=== PATIENT | female | born 1970 | race Caucasian/White ===

== ENCOUNTER 2019-08-25 14:44 | Emergency (ER) | payer OTHER, SELFPAY ==
--- NOTE | ~2019-08-25 | CT_ITS ---
EXAMINATION: CT abdomen pelvis w con DATE: 08/25/2019 16:34 INDICATION: Left lower quadrant pain. History of diverticulitis. TECHNIQUE: Computed tomography (CT) of the abdomen and pelvis was performed with 100 cc Omnipaque 350 intravenous contrast. The dose-length product was 204.12 mGy-cm. Automated exposure control and iter ative reconstruction technique were employed. COMPARISON: None. FINDINGS: Lung bases are unremarkable. Heart size normal. No significant pleural or pericardial effus ion. No significant vascular abnormality. No lymphadenopathy. There are multiple tiny hypodensities of the liver, likely benign cysts. The spleen, pancreas, adrena l glands and kidneys are unremarkable. Nonobstructive bowel gas pattern. Small amount of free fluid i n the pelvis, likely physiologic. There is thickening of the descending and sigmoid colon, suspicious for colitis. No free air. No acute osseous abnormality. IMPRESSION: 1. Thickening of the descending and sigmoid colon, suspicious for colitis. Reviewed, dictated and finalized at location A.
[2019-08-25 15:15] VITALS: BP 124/82; PULSE 54; RESP 16; TEMP 37.1; O2SAT 100
--- NOTE | 2019-08-25 15:26 | PC.NURSE ---
Urine sent to the lab, unable to get the bar codes to scan. Chemistry lab called and notified at this time.
[2019-08-25 15:31] LABS: Basophils Absolute Auto 0.1 K/mm3 (0.0-0.1); Basophils Percent Auto 0.7 % (0.2-1.2); Eosinophils Absolute Auto 0.1 K/mm3 (0-0.3); Hematocrit 36.7 % (37.0-47.0); Hemoglobin 12.8 g/dL (12.0-15.0); Immature Granulocyte Absolute 0.02 K/mm3 (0.00-0.031); Immature Granulocyte Percent A 0.3 % (0-0.5); Lymphocytes Absolute Auto 2.17 K/mm3 (0.9-3.2); Lymphocytes Percent Auto 30.5 % (18.3-44.2); Mean Corpuscular HGB Conc 34.9 g/dl (32-36); Mean Corpuscular Hemoglobin 31.7 pg (26-34); Mean Corpuscular Volume 90.8 fl (80-100); Mean Platelet Volume 11.3 fl (7.4-10.4); Monocytes Absolute Auto 0.8 K/mm3 (0.1-0.6); Monocytes Percent Auto 11.4 % (2.6-8.5); Neutrophils Percent Auto 56.1 % (45.5-73.1); Platelet Count Result 203 k/mm3 (150-375); Red Blood Count 4.04 M/mm3 (4.2-5.4); Red Cell Distribution Width 12.4 % (11.5-14.5); White Blood Count 7.1 K/mm3 (4.5-10.0)
[2019-08-25 15:34] LABS: Add Urine Microscopic? YES; Appearance Urine Clear (Clear); Bilirubin Urine Negative (Negative); Blood Urine Negative (Negative); Color Urine Straw (Yellow); Glucose Urine UA Negative (Negative); Ketones Urine Trace mg/dL (Negative); Leukocyte Esterase Ur 1+ LEU/UL (Negative); Nitrate Urine Negative (Negative); Protein Urine Negative (Negative); Specific Grav Ur 1.008 (1.001-1.035); Squamous Epithelial Cell Urine Rare /hpf (Few); Urobilinogen Urine Negative mg/dL (<2.0); WBC Urine 0-3 /hpf
[2019-08-25 15:42] LABS: Alanine Aminotransferase 23 U/L (4-35); Albumin Level 4.6 g/dL (3.5-5.1); Alkaline Phosphatase 86 U/L (38-126); Aspartate Amino Transferase 28 U/L (14-36); Bilirubin,Total 0.7 mg/dL (0.2-1.3); Blood Urea Nitrogen 10 mg/dL (7-17); Calcium 9.7 mg/dL (8.4-10.2); Carbon Dioxide 28 mmol/L (22-30); Chloride 97 mmol/L (98-107); Estimated CRCL calculation 72 ml/min; Estimated Glomerular Filt Rate > 60; Glucose 83 mg/dL (65-105); Lipase 142 U/L (23-300); Potassium 4.2 mmol/L (3.4-5.0); Sodium 134 mmol/L (137-145)
--- NOTE | 2019-08-25 16:13 | ED.ABDPAIN ---
HPI - Abdominal Pain General Chief Complaint: Abdominal Pain Stated Complaint: abd pain Time Seen by Provider: 08/25/19 15:59 Source: patient Mode of arrival: ambulatory Limitations: no limitations History of Present Illness HPI narrative: Patient is a 48-year-old female who presents to emergency department for evaluation of GI upset for the last several days patient presents from urgent care noting aching pain to the left side of the abdomen in the lower quadrants that has worsened over the last couple of days patient denies any fever chills nausea vomiting patient notes she has felt fatigued over the last couple of days denies sick contacts is tried [id number] medications with some improvement patient denies any diarrhea rectal bleeding or melena. Related Data Allergies Allergy/AdvReac Type Severity Reaction Status Date / Time No Known Allergies Allergy Verified 08/25/19 15:59 Review of Systems Review of Systems: All systems reviewed & are unremarkable except as noted in HPI and below PMFSH Past Medical History Medical History Diverticulitis Social History Social History (Updated 08/25/19 @ 16:15 by Jon Abrams PA-C) Smoking status: Never smoker Exam Narrative: Exam Narrative: GENERAL: Well-appearing, well-nourished, and in no acute distress. HEAD: Normocephalic, atraumatic. EYES: PERRLA and EOMI. ENT: Nares clear, no rhinorrhea or epistaxis. Mucous membranes moist. CHEST: Clear to auscultation. No respiratory distress. No wheezes rales or rhonchi HEART: Regular rate and rhythm. No murmur heard. Normal peripheral pulses. ABDOMEN: Soft, left-sided abdominal tenderness with voluntary guarding, nondistended EXTREMITIES: Normal range of motion. No edema. SKIN: Warm, dry, no rash. NEURO: No focal deficits. Alert and oriented x3. PSYCH: Normal mood and affect. Course Course Emergency Course: Patient in the room aware of case findings treatment plan and diagnosis. Patient found to have colitis no high risk changes in the blood work or imaging feeling better after hydration and medications. 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, patient provided with reasons to return patient feeling much better at this time Vital Signs Vital signs: Vital Signs Temperature 98.7 F 08/25/19 15:15 Pulse Rate 54 L 08/25/19 15:15 Respiratory Rate 16 08/25/19 15:15 Blood Pressure 124/82 08/25/19 15:15 Pulse Oximetry 100 08/25/19 15:15 Temperature 98.7 F 08/25/19 15:15 Pulse Rate 54 L 08/25/19 15:15 Respiratory Rate 16 08/25/19 15:15 Blood Pressure 124/82 08/25/19 15:15 Pulse Oximetry 100 08/25/19 15:15 MDM - Abdominal Pain MDM Narrative Medical decision making narrative: Patient is a 48-year-old female who presented with GI upset over the last several days found to have colitis afebrile nontoxic-appearing hydrated and given medications in the emergency department with improvement otherwise resting comfortably in no distress provided with reasons to return feeling fine to follow-up Lab Data Result diagrams: 08/25/19 15:21 08/25/19 15:21 Labs: Lab Results 08/25/19 08/25/19 08/25/19 Range/Units 15:20 15:21 15:21 WBC 7.1 (4.5-10.0) K/mm3 RBC 4.04 L (4.2-5.4) M/mm3 Hgb 12.8 (12.0-15.0) g/dL Hct 36.7 L (37.0-47.0) % MCV 90.8 (80-100) fl MCH 31.7 (26-34) pg MCHC 34.9 (32-36) g/dl RDW 12.4 (11.5-14.5) % Plt Count 203 (150-375) k/mm3 MPV 11.3 H (7.4-10.4) fl Immature Gran % (Auto) 0.3 (0-0.5) % Neut % (Auto) 56.1 (45.5-73.1) % Lymph % (Auto) 30.5 (18.3-44.2) % Hamilton % (Auto) 11.4 H (2.6-8.5) % Eos % (Auto) 1.0 (0-4.4) % Baso % (Auto) 0.7 (0.2-1.2) % Lymph # (Auto) 2.17 (0.9-3.2) K/mm3 Hamilton # (Auto) 0.8 H (0.1-0.6) K/mm3 Eos # (Auto) 0.1 (0-0.3) K/mm3 Baso # (Auto) 0.1 (0.0-
[2019-08-25] MEDS: SODIUM CHLORIDE 0.9% IV 1,000 ML 999 ML IV CONT (17:11)
[2019-08-25] MEDS: ONDANSETRON INJ 4 MG/2 ML VIAL IV PUSH (17:11)
== END 2019-08-25 18:39 | disposition home or self-care (01) ==
PROVIDERS: Emergency Provider Emergency Medicine; PCP Internal Medicine
DX: K52.9 Noninfective gastroenteritis and colitis, unspecified (principal)
CPT/HCPCS: 36415; 74177; 80053; 81001; 83690; 85025; 96374; 96375; 99284; J0131; J2405; J7030; Q9967

== ENCOUNTER 2020-05-08 10:58 | Outpatient (CLI) | payer OTHER, SELFPAY ==
--- NOTE | ~2020-05-08 | MMUS_ITS ---
EXAMINATION: MM diagnostic [facility] BI w celso, US breast RT limited HISTORY: Palpable lump in the upper outer quadrant of the right breast TECHNIQUE: Craniocaudal, mediolateral, and mediolateral oblique 3-D tomosynthesis images of the maria eugenia ts were performed and synthetic 2-D images were generated. CAD analysis was submitted and interpreted . High resolution limited right breast ultrasound was performed. COMPARISON: 01/18/2019 BREAST PARENCHYMAL COMPOSITION: There are scattered areas of fibroglandular density. FINDINGS: MAMMOGRAPHIC FINDINGS: There is no evidence of suspicious mass, calcification, or architectural distortion in either breast to suggest malignancy. There has been no suspicious interval change. No suspicious mammographic shant elate is identified for the reported palpable abnormality. ULTRASOUND: No suspicious cystic or solid mass is identified in the upper outer quadrant of the right breast. IMPRESSION: 1. No suspicious mammographic or sonographic correlate is identified for the reported palpable abnorm ality of concern. Further evaluation at this time should be based on clinical assessment. Continued f ollow-up physical examination is recommended. 2. Recommend routine screening mammography in one year. BI-RADS Category 2: Benign finding(s). Reviewed, dictated and finalized at location A. IMPRESSION: 1. No suspicious mammographic or sonographic correlate is identified for the re ported palpable abnormality of concern. Further evaluation at this time should be based on clinical assessment. Continued follow-up physical examination is re commended. 2. Recommend routine screening mammography in one year. BI-RADS Category 2: Benign finding(s).
== END 2020-05-08 10:59 | disposition home or self-care (01) ==
LOC: ANHIMG 11:00
PROVIDERS: PCP Internal Medicine; Visit Provider Obstetrics & Gynecology
DX: N63.11 Unspecified lump in the right breast, upper outer quadrant (principal)
CPT/HCPCS: 76642; 77062; 77066; G0279

== ENCOUNTER 2020-09-08 07:07 | Outpatient (CLI) | payer OTHER, SELFPAY ==
[2020-09-08 07:47] LABS: Alanine Aminotransferase 18 U/L (4-35); Albumin Level 4.3 g/dL (3.5-5.1); Alkaline Phosphatase 73 U/L (38-126); Anion Gap 6 mmol/L (8-16); Aspartate Amino Transferase 26 U/L (14-36); Bilirubin,Total 0.7 mg/dL (0.2-1.3); Blood Urea Nitrogen 12 mg/dL (7-17); Calcium 9.6 mg/dL (8.4-10.2); Carbon Dioxide 30 mmol/L (22-30); Chloride 103 mmol/L (98-107); Estimated Glomerular Filt Rate > 60; Glucose 85 mg/dL (65-110); Potassium 4.7 mmol/L (3.4-5.0); Sodium 139 mmol/L (137-145)
[2020-09-08 07:56] LABS: Basophils Absolute Auto 0.1 K/mm3 (0.0-0.1); Basophils Percent Auto 1.5 % (0.2-1.2); Eosinophils Absolute Auto 0.1 K/mm3 (0-0.3); Eosinophils Percent Auto 2.1 % (0-4.4); Hematocrit 37.2 % (37.0-47.0); Hemoglobin 12.9 g/dL (12.0-15.0); Lymphocytes Absolute Auto 1.73 K/mm3 (0.9-3.2); Lymphocytes Percent Auto 44.6 % (18.3-44.2); Mean Corpuscular HGB Conc 34.7 g/dl (32-36); Mean Corpuscular Hemoglobin 31.7 pg (26-34); Mean Corpuscular Volume 91.4 fl (80-100); Mean Platelet Volume 11.1 fl (7.4-10.4); Monocytes Absolute Auto 0.4 K/mm3 (0.1-0.6); Monocytes Percent Auto 10.8 % (2.6-8.5); Neutrophils Absolute Auto 1.6 K/mm3 (1.3-6.7); Platelet Count Result 210 k/mm3 (150-375); Red Blood Count 4.07 M/mm3 (4.2-5.4); Red Cell Distribution Width 12.3 % (11.5-14.5); White Blood Count 3.9 K/mm3 (4.5-10.0)
[2020-09-08 08:40] LABS: Vitamin D 25 Hydroxy 39.4 ng/mL
[2020-09-12 05:48] LABS: Progesterone 0.3 ng/mL (***)
[2020-09-13 04:42] LABS: Insulin Level Total 2.2 uIU/mL (<=19.6)
[2020-09-13 23:23] LABS: Estradiol, Ultrasensitive 166 pg/mL
== END 2020-09-08 07:08 | disposition home or self-care (01) ==
PROVIDERS: PCP Internal Medicine; Visit Provider Obstetrics & Gynecology
DX: N95.1 Menopausal and female climacteric states (principal); R42 Dizziness and giddiness
CPT/HCPCS: 36415; 80053; 82306; 82607; 82670; 82728; 83001; 83525; 84144; 84443; 85025

== ENCOUNTER 2021-05-29 16:49 | Emergency (ER) | payer OTHER, SELFPAY ==
[2021-05-29 16:53] VITALS: BP 143/86; PULSE 67; RESP 16; TEMP 36.3; O2SAT 100
[2021-05-29] MEDS: KETOROLAC 30 MG/ML VIAL (*BKC) 15 MG IM (18:13)
--- NOTE | 2021-05-29 18:13 | ED.GENADULT ---
HPI - General Adult General Chief complaint: Headache Stated complaint: head pain Time Seen by Provider: 05/29/21 17:44 History of Present Illness HPI narrative: 50-year-old female here for evaluation of right-sided neck pain for the past 3 days. Patient states the pain is intermittent in nature, and comes on with position changes, particularly when she turns her head to the left. She states the pain last seconds at a time and radiates from her right neck into her right scientologist. Reports transient relief after Aleve and Tylenol. Denies increased exertion or odd sleeping positions. She denies any visual changes, nausea, vomiting, weakness, loss of consciousness, head trauma or recent falls. She does have a history of migraine headaches. Related Data Allergies Allergy/AdvReac Type Severity Reaction Status Date / Time No Known Allergies Allergy Verified 08/25/19 15:59 Review of Systems Review of Systems: Gen.: Denies fevers or chills Eyes: Denies eye pain or visual change ENT: Denies congestion Respiratory: Denies shortness of breath or cough CV: Denies chest pain or palpitations GI: Denies abdominal pain nausea, emesis or diarrhea denies burning, urgency, frequency or hematuria Musculoskeletal: Reports right-sided neck pain. Neuro: Denies numbness, tingling, weakness or focal weakness Skin: Denies rash Except as documented, all other systems reviewed and negative All systems reviewed & are unremarkable except as noted in HPI and below PMFSH Past Medical History Medical History (Updated 05/29/21 @ 19:15 by Caryn Veronica PA-C) Diverticulitis Social History Social History (Updated 08/25/19 @ 16:15 by Jon Abrams PA-C) Smoking status: Never smoker Exam Narrative: APPEARANCE: Well appearing, no pain in distress, well-nourished. ENT: Head normocephalic and atraumatic. No sinus tenderness. EYES: PERRLA/EOMI, conjunctivae clear NOSE: No nasal drainage EARS: External ear normal in appearance THROAT: Oropharynx is clear. Mucous membranes are moist. NECK: Supple. No adenopathy, no masses. RESPIRATORY: Airway patent, respirations nonlabored. Clear to auscultation bilaterally, no rales, rhonchi, wheezing. CARDIOVASCULAR: Regular rate and rhythm without murmurs, rubs, or gallops. ABDOMINAL: Normoactive bowel sounds. Soft, nontender, nondistended. No rebound tenderness or guarding. MUSCULOSKELETAL: Pain is reproduced when palpating the right side of her neck along the trapezius muscle. She has full range of motion in her neck but does report some pain with turning her head to the left. No midline tenderness along C, T or L spine. extremities are warm and well-perfused. Moves all extremities well. No edema. NEURO: Cranial nerves II through XII intact. Normal speech. No focal neurologic deficits. Normal gait. SKIN: Skin is warm and dry. No rashes. PSYCHIATRIC: Normal affect/mood. Course Vital Signs Vital signs: Vital Signs Temperature 97.3 F L 05/29/21 16:53 Pulse Rate 67 05/29/21 16:53 Respiratory Rate 16 05/29/21 16:53 Blood Pressure 143/86 H 05/29/21 16:53 Pulse Oximetry 100 05/29/21 16:53 Temperature 98.3 F 05/29/21 19:19 Pulse Rate 74 05/29/21 19:19 Respiratory Rate 16 05/29/21 19:19 Blood Pressure 126/74 05/29/21 19:19 Pulse Oximetry 100 05/29/21 19:19 Medical Decision Making MDM Narrative Medical decision making narrative: 50-year-old female here for right-sided neck pain for 3 days. VSS, pain reproduced with palpation along trapezius muscle. Feel this is likely MSK in nature as pain is episodic, localized and asymmetric, aggravated by neck movement, and relieved by rest. Normal neuro exam, patient's pain reproduced with palpation. Discussed risk versus benefits of obtaining head CT given patient's age, patient declines imaging. Her pain is improved after Toradol and muscle relaxer. Discussed strict return precautions with patient and she voiced understa
[2021-05-29] MEDS: TIZANIDINE HCL 2 MG TABLET PO (18:17)
[2021-05-29 19:19] VITALS: BP 126/74; PULSE 74; RESP 16; TEMP 36.8; O2SAT 100
== END 2021-05-29 19:21 | disposition home or self-care (01) ==
PROVIDERS: Emergency Provider Emergency Medicine; PCP Internal Medicine
DX: S16.1XXA Strain of muscle, fascia and tendon at neck level, initial encounter (principal); X58.XXXA Exposure to other specified factors, initial encounter
CPT/HCPCS: 96372; 99283; A9270; J1885

== ENCOUNTER 2021-06-15 10:11 | Emergency (ER) | payer OTHER, SELFPAY ==
[2021-06-15 10:18] VITALS: BP 147/84; PULSE 73; RESP 16; TEMP 36.2; O2SAT 100
--- NOTE | 2021-06-15 10:19 | ED.GENADULT ---
HPI - General Adult General Chief complaint: Wound/Laceration Stated complaint: poison sandra Time Seen by Provider: 06/15/21 10:19 Source: patient Mode of arrival: ambulatory Limitations: no limitations History of Present Illness HPI narrative: 50-year-old female presented for complaint of possible allergic reaction to poison sandra last night. She cut weeds near a fence line, states he wore pants, long sleeves and gloves. Endorses her face has small bumps, throat feels itchy and swollen, ears and eyes itch and scalp itches. She has taken 2 Benadryl last night and 1 Benadryl this morning. PCP advised evaluation. States she usually gets a shot. Denies lip/tongue swelling, sob, wheezing, dizziness, n/v/d. 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 Related Data Home Medications Medication Instructions Recorded Confirmed sertraline 50 mg PO DAILY 06/15/21 06/15/21 Allergies Allergy/AdvReac Type Severity Reaction Status Date / Time No Known Allergies Allergy Verified 06/15/21 10:20 Review of Systems Review of Systems: CONSTITUTIONAL: Denies body aches, fever, chills, or sweats. EYES: Denies visual changes, redness, or discharge. ENT: Denies rhinorrhea, congestion, sore throat, or otalgia. CARDIOVASCULAR: Denies chest pain, palpitations, or edema. RESPIRATORY: Denies cough or dyspnea. GASTROINTESTINAL: Denies abdominal pain, nausea, vomiting, or diarrhea. GENITOURINARY: Denies dysuria or hematuria. SKIN: endorses rash, itching MUSCULOSKELETAL: Denies back pain, joint pain, or myalgia. NEUROLOGIC: Denies headache, numbness, tingling, or weakness. PSYCH: Denies depression or anxiety. [facility] Past Medical History Medical History (Updated 06/15/21 @ 10:32 by Liliya Manuel APRN) Diverticulitis Social History Social History Smoking status: Never smoker Comments At time of signature, I have reviewed and agree with nursing past medical, surgical, social and family history unless otherwise noted. Please see nursing chart for further information. There is no relevant family history pertinent to the presenting complaint Exam Narrative: GENERAL: Well-appearing no acute distress. HEAD: Normocephalic, atraumatic. EYES: conjunctivae clear, and EOMI. ENT: Mucous membranes moist. No lip/tongue swelling. Oropharynx without edema, erythema or lesions. Bilat TMs with normal light reflex, no redness, edema or lesions to canals. NECK: Supple. No lymphadenopathy CHEST: Clear to auscultation. No respiratory distress. Speaks full sentences HEART: Regular rate and rhythm. SKIN: Warm, dry. Skin colored maculopapular rash to chin, bilateral cheeks outside of nasolabial folds. NEURO: Alert and oriented x3. PSYCH: Normal mood and affect Course Course Emergency Course: Patient is aware of diagnosis, understands and agrees to treatment plan. Anticipatory guidance given. Patient agrees to follow-up as directed and is aware of reasons to seek care at the emergency department. Portions of this record may have been created with voice recognition software Level of Care: Express Care Visit Vital Signs Vital signs: Vital Signs Temperature 97.2 F L 06/15/21 10:18 Pulse Rate 73 06/15/21 10:18 Respiratory Rate 16 06/15/21 10:18 Blood Pressure 147/84 H 06/15/21 10:18 Pulse Oximetry 100 06/15/21 10:18 Temperature 97.2 F L 06/15/21 10:18 Pulse Rate 73 06/15/21 10:18 Respiratory Rate 16 06/15/21 10:18 Blood Pressure 147/84 H 06/15/21 10:18 Pulse Oximetry 100 06/15/21 10:18 Reviewed Medical Decision Making MDM Narrative Medical decision making narrative: IM Solu-medrol given. No soft palate or uvula edema, no tongue or lip edema or other mucosal involvement, no respiratory compromise, no stridor, no wheezing, no wheezing, no history of syncope, no hypotension, no nausea, vomiting, or diarrhea. She is advised if she d
[2021-06-15] MEDS: FAMOTIDINE 20 MG TABLET 40 MG PO (10:35)
[2021-06-15] MEDS: methylPREDNISolone SOD SUCC 125 MG VIAL IM (10:36)
== END 2021-06-15 10:47 | disposition home or self-care (01) ==
PROVIDERS: Emergency Provider Nurse Practitioner Family
DX: T78.40XA Allergy, unspecified, initial encounter (principal)
CPT/HCPCS: 96372; 99213; A9270; G0463; J2930

== ENCOUNTER 2022-01-20 13:14 | Outpatient (CLI) | payer OTHER, SELFPAY ==
--- NOTE | ~2022-01-20 | MM_ITS ---
EXAMINATION: MM screening [facility] BI w celso HISTORY: Screening mammogram TECHNIQUE: Craniocaudal and mediolateral oblique 3-D tomosynthesis images were obtained and synthetic 2-D images were generated. CAD analysis was submitted and interpreted. COMPARISON: 05/08/2020, 01/18/2019 BREAST PARENCHYMAL COMPOSITION: The breasts are heterogeneously dense, which may obscure small masses . FINDINGS: No suspicious mass, calcification, or architectural distortion are identified in either matteo ast to suggest malignancy. There has been no suspicious interval change. IMPRESSION: 1. No mammographic evidence of malignancy. 2. Recommend routine screening mammography in one year. BI-RADS Category 1: Negative Reviewed, dictated and finalized at location A. NER MACHINE
== END 2022-01-20 13:15 | disposition home or self-care (01) ==
PROVIDERS: Visit Provider Obstetrics & Gynecology
DX: Z12.31 Encounter for screening mammogram for malignant neoplasm of breast (principal)
CPT/HCPCS: 77063; 77067

== ENCOUNTER 2022-04-15 15:21 | Emergency (ER) | payer OTHER, SELFPAY ==
[2022-04-15 15:28] VITALS: BP 126/77; PULSE 66; RESP 18; TEMP 36.5; O2SAT 99
--- NOTE | 2022-04-15 15:39 | ED.EAR ---
HPI - Ear Problem General Chief complaint: Ear Stated complaint: Bilateral Ear Irritation Time Seen by Provider: 04/15/22 15:32 Source: patient Mode of arrival: ambulatory Limitations: no limitations History of Present Illness HPI Narrative: Patient presents today with a 2 week history of bilateral ear pressure with muffled hearing over the last couple of days. Denies ear pain, congestion, rhinorrhea cough. She takes Zyrtec daily, but also took 2 Benadryl today without relief. Related Data Home Medications Medication Instructions Recorded Confirmed sertraline 50 mg tablet 50 mg PO DAILY 06/15/21 04/15/22 Allergies Allergy/AdvReac Type Severity Reaction Status Date / Time No Known Allergies Allergy Verified 04/15/22 15:32 Review of Systems Review of Systems: CONSTITUTIONAL: Denies body aches, fever, chills, or sweats. EYES: Denies visual changes, redness, or discharge. ENT: Denies rhinorrhea, congestion, sore throat, or otalgia.+ ear clogging and pressure with muffled hearing CARDIOVASCULAR: Denies chest pain, palpitations, or edema. RESPIRATORY: Denies cough or dyspnea. GASTROINTESTINAL: Denies abdominal pain, nausea, vomiting, or diarrhea. GENITOURINARY: Denies dysuria or hematuria. SKIN: Denies rash, itching, or wounds. MUSCULOSKELETAL: Denies back pain, joint pain, or myalgia. NEUROLOGIC: Denies headache, numbness, tingling, or weakness. PSYCH: Denies depression or anxiety. [facility] Past Medical History Medical History (Updated 04/15/22 @ 15:43 by Cary Espino, [facility], ) Diverticulitis Social History Social History Smoking status: Never smoker Comments At time of signature, I have reviewed and agree with nursing past medical, surgical, social and family history unless otherwise noted. Please see nursing chart for further information. There is no relevant family history pertinent to the presenting complaint Exam Narrative: GENERAL: Well-appearing, well-nourished, and in no acute distress. HEAD: Normocephalic, atraumatic. EYES: EOMI. No redness or drainage. Conjunctivae normal. ENT: Mucous membranes pink and moist. Nares clear. No rhinorrhea. Bilateral middle ear effusions without evidence of bacterial infection. NECK: Normal AROM. Supple. No lymphadenopathy. CHEST: No respiratory distress. EXTREMITIES: Normal range of motion. No edema. SKIN: Warm, dry, no rash. Capillary refill normal. Normal skin turgor. NEURO: No focal deficits. Alert and oriented x3. Gait steady. PSYCH: Normal affect. No signs of depression or anxiety. Course Course Level of Care: Express Care Visit Vital Signs Vital signs: Vital Signs Temperature 97.7 F 04/15/22 15:28 Pulse Rate 66 04/15/22 15:28 Respiratory Rate 18 04/15/22 15:28 Blood Pressure 126/77 04/15/22 15:28 Pulse Oximetry 99 04/15/22 15:28 Oxygen Delivery Room Air 04/15/22 15:28 Temperature 97.7 F 04/15/22 15:28 Pulse Rate 66 04/15/22 15:28 Respiratory Rate 18 04/15/22 15:28 Blood Pressure 126/77 04/15/22 15:28 Pulse Oximetry 99 04/15/22 15:28 Oxygen Delivery Room Air 04/15/22 15:33 Reviewed. Pt has been instructed to follow up with her PCP regarding her elevated blood pressure today. Medical Decision Making MDM Narrative Medical decision making narrative: Patient has bilateral serous otitis media. States she had a syncopal episode last time she took Sudafed. Will send prescription for prednisone and instructed her to take Flonase. Anticipatory guidance given. Differential Diagnosis Differential Diagnosis: Otitis media, otitis externa, ruptured TM, serous otitis, eustachian tube dysfunction, cerumen impaction Vital Signs Vital Signs: Vital Signs Temperature 97.7 F 04/15/22 15:28 Pulse Rate 66 04/15/22 15:28 Respiratory Rate 18 04/15/22 15:28 Blood Pressure 126/77 04/15/22 15:28 Pulse Oximetry 99 04/15/22 15:28
== END 2022-04-15 15:45 | disposition home or self-care (01) ==
PROVIDERS: Emergency Provider Nurse Practitioner; PCP Hospitalist
DX: H65.03 Acute serous otitis media, bilateral (principal)
CPT/HCPCS: 99213; G0463

== ENCOUNTER 2023-01-27 09:38 | Emergency (ER) | payer OTHER, SELFPAY ==
--- NOTE | 2023-01-27 09:49 | ED.GENADULT ---
HPI - General Adult General Chief complaint: Upper Respiratory Infection Stated complaint: bilateral ear discomfort Time Seen by Provider: 01/27/23 09:49 Source: patient, RN notes reviewed and old records reviewed Mode of arrival: ambulatory Limitations: no limitations History of Present Illness HPI narrative: 52-year-old female presents to [facility] with complaints cough, congestion, sinus pain, headache, myalgia, earache that is worse in left ear this started Tuesday. Patient denies chest pain, dizziness, vomiting, shortness of breath, weakness. MD complaint: cough\congestion, earache Onset (ago): day(s) (3) Related Data Allergies Allergy/AdvReac Type Severity Reaction Status Date / Time No Known Allergies Allergy Verified 04/15/22 15:32 Review of Systems Constitutional: Constitutional: Reports as per HPI, Reports body ache(s), Reports headache(s) and Reports malaise Eyes: Eyes: Reports no additional eye complaints ENT: Reports as per HPI, Reports otalgia, Reports nasal congestion, Reports nasal discharge and Reports sinus pressure Cardiovascular: Cardiovascular: Reports no additional cardiovascular complaints Respiratory: Respiratory: Reports as per HPI, Reports chest congestion and Reports cough Neurologic: Reports system reviewed and no additional complaints, except as documented PMF Past Medical History Medical History (Updated 01/27/23 @ 10:09 by Lauren Adame APRN) Diverticulitis Social History Social History Smoking status: Never smoker Comments At the time of my signature, I reviewed and agree with the nursing past medical, surgical, social, and family history. There is no relevant family history pertinent to the patient complaint. Exam Const: General: cooperative, no acute distress, ill appearing acutely and well nourished Nutritional Appearance: well nourished Orientation/consciousness: patient oriented x3 Limitations: no limitations HENMT: Head: normal to inspection and normocephalic Ears: external ears normal, mastoids normal, Abnormal EAC present and TM abnormal bulging, wth effusion ( bilaterally) hemotympanum and erythematous Face/Nose/Sinus: Facial tenderness on exam of face and sinuses Face and sinus: normal facial exam Mouth: Yes Normal oral and palatal mucosa present and Yes moist mucous membranes Throat: tonsils normal, uvula midline, posterior oropharynx abnormal erythema and no uvular edema Eyes: General: appearance normal, both eyes and all related structures Sclera: sclerae normal Pupils: Equal, round and reactive pupils present Resp: Effort & Inspection: normal respiratory effort, able to speak in complete sentences, no audible wheezes, no cough, no respiratory distress and no retractions Auscultation: clear to auscultation bilaterally, no crackles, no rales, no rhonchi and no wheezes Cardio: Rate: regular rate Rhythm: regular rhythm Skin: General skin exam: normal color and no rashes or lesions noted Neuro: General: patient oriented x3 Cranial nerves: Yes Equal, round and reactive pupils present Psych: Appearance: grossly normal Course Course Emergency Course: Patient is aware of diagnosis, understands and agrees to treatment plan.? Anticipatory guidance given.? Patient agrees to follow-up as directed and is aware of reasons to seek care at the emergency department. Some parts of this dictation were generated by voice recognition software and may contain typographical and/or grammatical inaccuracies. Level of Care: Express Care Visit Vital Signs Vital signs: Reviewed Medical Decision Making MDM Narrative Medical decision making narrative: patient complaints cough, congestion, earache, myalgia for 3-4 days. Patient's exam noted bilateral tympanic membranes bulging and erythematous will treat for bacterial otitis media. Patient's COVID test in clinic today is negative. Will treat patient for o
[2023-01-27 09:50] VITALS: BP 131/84; PULSE 70; RESP 18; TEMP 36.8; O2SAT 99
== END 2023-01-27 10:42 | disposition home or self-care (01) ==
PROVIDERS: Emergency Provider Registered Nurse; PCP Hospitalist
DX: H66.93 Otitis media, unspecified, bilateral (principal); Z20.822 Contact with and (suspected) exposure to COVID-19
CPT/HCPCS: 87426; 99213; C9803; G0463

== ENCOUNTER 2023-06-09 15:47 | Outpatient (CLI) | payer OTHER, SELFPAY ==
--- NOTE | ~2023-06-09 | MM_ITS ---
EXAMINATION: MM screening nova BI w celso HISTORY: Screening mammogram TECHNIQUE: Craniocaudal and mediolateral oblique 3-D tomosynthesis images were obtained and synthetic 2-D images were generated. CAD analysis was submitted and interpreted. COMPARISON: 01/20/2022 bilateral screening mammogram 05/08/2020 bilateral diagnostic mammogram and Limited right breast ultrasound examination BREAST PARENCHYMAL COMPOSITION: There are scattered areas of fibroglandular density. FINDINGS: Approximately 6.5 cm probable chronic benign lipoma is noted in the outer mid to upper righ t breast. There is no evidence of suspicious mass, calcification, or architectural distortion to sugg est malignancy in either breast. There has been no suspicious interval change. IMPRESSION: 1. Probable large benign right mid to upper outer breast lipoma. No mammographic evidence of malignan cy. 2. Recommend routine screening mammography in one year. BI-RADS Category 2: Benign finding(s). Reviewed, dictated and finalized at location A. IMPRESSION: 1. Probable large benign right mid to upper outer breast lipoma. No mammographi c evidence of malignancy. 2. Recommend routine screening mammography in one year. BI-RADS Category 2: Benign finding(s).
== END 2023-06-09 15:48 | disposition home or self-care (01) ==
LOC: ANHIMG 15:51
PROVIDERS: PCP Hospitalist; Visit Provider Obstetrics & Gynecology
DX: Z12.31 Encounter for screening mammogram for malignant neoplasm of breast (principal)
CPT/HCPCS: 77063; 77067

== ENCOUNTER 2023-10-14 07:44 | Outpatient (CLI) | payer OTHER, SELFPAY ==
--- NOTE | ~2023-10-14 | XR_ITS ---
XR lumbar spine min 4V 10/14/2023 08:07 Indication: Low back pain Procedure: 5 views lumbar spine Comparison: No prior studies for comparison. Findings: Vertebral body heights are maintained. No fracture, subluxation or dislocation. No evidence for spondylolisthesis. Mild multilevel facet hypertrophy. Normal lumbar lordosis. Pedicles intact. S acral foramen are symmetric. Impression: 1: Mild lumbar spondylosis. Reviewed, dictated and finalized at location B. Impression: 1: Mild lumbar spondylosis.
== END 2023-10-14 07:45 ==
PROVIDERS: PCP Hospitalist; Visit Provider Chiropractor
DX: M54.50 Low back pain, unspecified (principal); M43.06 Spondylolysis, lumbar region
CPT/HCPCS: 72110

== ENCOUNTER 2023-12-22 17:35 | Emergency (ER) | payer OTHER, SELFPAY ==
[2023-12-22] VITALS (11 sets, daily range): BP systolic 104–132; BP diastolic 55–79; PULSE 77–91; RESP 13–18; TEMP 36.4–37.6; O2SAT 97–100
--- NOTE | ~2023-12-22 | XR_ITS ---
CHEST RADIOGRAPH CLINICAL HISTORY: syncopal episode . COMPARISON: None TECHNIQUE: Single portable view of the chest. FINDINGS Sternal wires and mediastinal clips are identified, the wires are midline and intact. The left upper lung is partially obscured due to pacemaker generator. Wires project over the right atrium and right ventricle. A ring projects over the mitral valve position. The remainder of the cardiomediastinal silhouette is otherwise unremarkable. The lungs are clear Visualized osseous structures and soft tissues are unremarkable. IMPRESSION: No focal infiltrate or effusion. Reviewed, dictated and finalized at location A. ITY PROSPECTING OBSERVER
--- NOTE | 2023-12-22 17:42 | ECG_ITS ---
Test Date: 2023-12-22 17:48:07 Measurements Intervals [place] Rate: 83 P: 83 UT: 207 QRS: 74 QRSD: 97 T: -76 QT: 479 QTc: 564 Interpretive Statements SINUS RHYTHM WITH FIRST DEGREE AV BLOCK T WAVE ABNORMALITY IN ANT/INF LEADS- CONSIDER ISCHEMIA BASELINE ARTIFACT- I, II, III, AVR, AVL, AVF, V1-V6 ABNORMAL ECG No previous ECG available for comparison Electronically Signed On 12-22-2023 18:01:27 LINUX ADMIN by Tenzin Quintana D.O.
[2023-12-22 18:01] LABS: Basophils Absolute Auto 0.1 K/mm3 (0.0-0.1); Basophils Percent Auto 1.5 % (0.2-1.2); Eosinophils Absolute Auto 0.2 K/mm3 (0-0.3); Hematocrit 21.8 % (37.0-47.0); Hemoglobin 7.1 g/dL (12.0-15.0); Immature Granulocyte Absolute 0.02 K/mm3 (0.00-0.031); Immature Granulocyte Percent A 0.3 % (0-0.5); Lymphocytes Absolute Auto 2.52 K/mm3 (0.9-3.2); Lymphocytes Percent Auto 34.3 % (18.3-44.2); Mean Corpuscular HGB Conc 32.6 g/dl (32-36); Mean Corpuscular Hemoglobin 30.3 pg (26-34); Mean Corpuscular Volume 93.2 fl (80-100); Mean Platelet Volume 9.4 fl (7.4-10.4); Monocytes Absolute Auto 0.7 K/mm3 (0.1-0.6); Monocytes Percent Auto 9.5 % (2.6-8.5); Neutrophils Absolute Auto 3.9 K/mm3 (1.3-6.7); Neutrophils Percent Auto 52.4 % (45.5-73.1); Platelet Count Result 401 k/mm3 (150-375); Red Blood Count 2.34 M/mm3 (4.2-5.4); Red Cell Distribution Width 13.6 % (11.5-14.5); White Blood Count 7.4 K/mm3 (4.5-10.0)
[2023-12-22 18:10] LABS: Alanine Aminotransferase 19 U/L (6-35); Albumin Level 3.7 g/dL (3.5-5.1); Alkaline Phosphatase 83 U/L (38-126); Anion Gap 13 mmol/L (4-12); Aspartate Amino Transferase 24 U/L (14-36); Bilirubin,Total 0.3 mg/dL (0.2-1.3); Blood Urea Nitrogen 38 mg/dL (7-17); Carbon Dioxide 19 mmol/L (22-30); Chloride 105 mmol/L (98-107); Estimated Glomerular Filt Rate > 60; Glucose 128 mg/dL (65-110); Potassium 3.5 mmol/L (3.4-5.0); Sodium 137 mmol/L (137-145)
--- NOTE | 2023-12-22 19:40 | PC.NURSE ---
This RN and MD Silva went into pt room to take a stool sample to see if there is any blood in the stool. MD Silva explained the procedure and reasoning for this exam is due to her low hemoglobin and we want to find source of bleeding. MD Silva explained there may be a potential ulcer from her past medical hx or surgery and wants to let [facility] aware of the source of bleeding since that is where she had her procedures done.
--- NOTE | 2023-12-22 19:41 | ED.SYNCOPE ---
HPI - Syncope General Chief Complaint: Syncope <José Luis Sy MD - Last Filed: 12/22/23 22:00> Stated Complaint: syncope <José Luis Sy MD - Last Filed: 12/22/23 22:00> Time Seen by Provider: 12/22/23 18:00 <José Luis Sy MD - Last Filed: 12/22/23 22:00> History of Present Illness HPI narrative: Patient is a 53-year-old female who presents ER after having a syncopal episode in her shower. Recently underwent mitral valve repair and pacemaker placement at [facility] in November. She was there for 8 days and had a blood transfusion due to anemia. She is not on any anti-platelet medication or blood thinners. Denies any dark black stools. No vomiting. Reports normal eating and drinking. <José Luis Sy MD - Last Filed: 12/22/23 22:00> Related Data Allergies/Adverse Reactions: Allergies Allergy/AdvReac Type Severity Reaction Status Date / Time No Known Allergies Allergy Verified 04/15/22 15:32 <José Luis Sy MD - Last Filed: 12/22/23 22:00> Review of Systems Review of Systems: All systems reviewed & are unremarkable except as noted in HPI and below <José Luis Sy MD - Last Filed: 12/22/23 22:00> Constitutional: Constitutional: Reports no additional constitutional complaints <José Luis Sy MD - Last Filed: 12/22/23 22:00> ENT: Reports system reviewed and no additional complaints, except as documented <José Luis Sy MD - Last Filed: 12/22/23 22:00> Cardiovascular: Cardiovascular: Reports no additional cardiovascular complaints <José Luis Sy MD - Last Filed: 12/22/23 22:00> Respiratory: Respiratory: Reports no additional respiratory complaints <José Luis Sy MD - Last Filed: 12/22/23 22:00> Gastrointestinal: Gastrointestinal: Reports no additional gastrointestinal complaints <José Luis Sy MD - Last Filed: 12/22/23 22:00> Neurologic: Reports syncope, Denies headache(s), Denies focal weakness and Denies numbness <José Luis Sy MD - Last Filed: 12/22/23 22:00> PMFSH Past Medical History Medical History: Medical History (Updated 12/22/23 @ 22:00 by José Luis Sy MD) Diverticulitis Mitral valve prolapse <José Luis Sy MD - Last Filed: 12/22/23 22:00> Surgical History Surgical History: Surgical History (Updated 12/22/23 @ 21:51 by José Luis Sy MD) History of permanent cardiac pacemaker placement Mitral valve replaced <José Luis Sy MD - Last Filed: 12/22/23 22:00> Social History Social History: Social History Smoking status: Never smoker <José Luis Sy MD - Last Filed: 12/22/23 22:00> Exam Narrative: GENERAL: Fatigue-appearing, well-nourished, and in no acute distress. HEAD: Normocephalic, atraumatic. EYES: PERRL and EOMI. ENT: Mucous membranes moist. CHEST: Clear to auscultation. No respiratory distress. HEART: Regular rate and rhythm. Normal peripheral pulses. ABDOMEN: Soft, nontender, nondistended. Hemoccult-positive stool without gross blood on digital rectal exam. EXTREMITIES: Normal range of motion. No edema. SKIN: Warm, dry, pale, no rash. NEURO: Alert and oriented x3. gets lightheaded when taken from lying to sitting. PSYCH: Normal mood and affect. <José Luis Sy MD - Last Filed: 12/22/23 22:00> Course Course Emergency Course: patient had a 2nd syncopal event after blood draw. She will be transfused 2 units. Her stool was occult positive for blood. Patient accepted to [facility] for transfer by Dr. Gutierrez at 2012. Patient has been started on b.i.d. Protonix which is the recommendation of the GI physician Dr. Mahoney. <José Luis Sy MD - Last Filed: 12/22/23 22:00> patient had a 2nd syncopal event after blood draw. She will be transfused 2 units. Her stool was occult positive for blood. Patient accepted to [facility] for transfer by Dr. Gutierrez at 2012. Patient has been started on b.i.d. Protonix which is the recommendation of the GI physician Dr. Mahoney. 22:00 - Patient endorsed to me by previous provider Dr. Sy. Patient accepted as a transfer to inpatient bed at [facility] pending bed assignment. 01:41 - Patient has a bed assignment and ambulance with ALS transportation arranged. Paperwork filled out by previous ER physician. Patient remained hemodynamically stable here in the emergency department setting and appropriate for transfer and transport. <Amor Lara MD - Last Filed: 12/23/23 01:43> Vital Signs Vital signs: Vital Signs Temperature 36.4 C 12/22/23 17:45 Pulse Rate 81 12/22/23 17:45 Respiratory Rate 17 12/22/23 17:45 Blood Pressure 123/55 L 12/22/23 17:45 Pulse Oximetry 100 12/22/23 17:45 Temperature 36.8 C 12/23/23 00:26 Pulse Rate 79 12/23/23 00:26 Respiratory Rate 13 12/23/23 00:26 Blood Pressure 130/76 12/23/23 00:26 Pulse Oximetry 97 12/23/23 00:26 <José Luis Sy MD - Last Filed: 12/22/23 22:00> Vital Signs Temperature 36.4 C 12/22/23 17:45 Pulse Rate 81 12/22/23 17:45 Respiratory Rate 17 12/22/23 17:45 Blood Pressure 123/55 L 12/22/23 17:45 Pulse Oximetry 100 12/22/23 17:45 Temperature 36.8 C 12/23/23 00:26 Pulse Rate 79 12/23/23 00:26 Respiratory Rate 13 12/23/23 00:26 Blood Pressure 130/76 12/23/23 00:26 Pulse Oximetry 97 12/23/23 00:26 <Amor Lara MD - Last Filed: 12/23/23 01:43> MDM - Syncope Lab Data Result diagrams: 12/22/23 17:56 12/22/23 17:56 <José Luis Sy MD - Last Filed: 12/22/23 22:00> Labs: Lab Results 12/22/23 12/22/23 Range/Units 17:56 18:48 WBC 7.4 (4.5-10.0) K/mm3 RBC 2.34 L (4.2-5.4) M/mm3 Hgb 7.1 L (12.0-15.0) g/dL Hct 21.8 L (37.0-47.0) % MCV 93.2 (80-100) fl MCH 30.3 (26-34) pg MCHC 32.6 (32-36) g/dl RDW 13.6 (11.5-14.5) % Plt Count 401 H D (150-375) k/mm3 MPV 9.4 (7.4-10.4) fl Immature Gran % (Auto) 0.3 (0-0.5) % Neut % (Auto) 52.4 (45.5-73.1) % Lymph % (Auto) 34.3 (18.3-44.2) % [place] % (Auto) 9.5 H (2.6-8.5) % Eos % (Auto) 2.0 (0-4.4) % Baso % (Auto) 1.5 H (0.2-1.2) % Lymph # (Auto) 2.52 (0.9-3.2) K/mm3 [place] # (Auto) 0.7 H (0.1-0.6) K/mm3 Eos # (Auto) 0.2 (0-0.3) K/mm3 Baso # (Auto) 0.1 (0.0-0.1) K/mm3 Abs Immat Gran (auto) 0.02 (0.00-0.031) K/mm3 Absolute Neuts (auto) 3.9 (1.3-6.7) K/mm3 Absolute Nucleated RBC 0.000 (0.0-0.012) K/mm3 Nucleated RBC % 0.0 (0.0-0.2) % Sodium 137 (137-145) mmol/L Potassium 3.5 (3.4-5.0) mmol/L Chloride 105 (98-107) mmol/L Carbon Dioxide 19 L (22-30) mmol/L Anion Gap 13 H (4-12) mmol/L BUN 38 H D (7-17) mg/dL Creatinine 0.60 L (0.7-1.0) mg/dL Estim Creat Clear Calc Not Reportable Estimated GFR > 60 (59 - ) Glucose 128 H (65-110) mg/dL Calcium 9.0 (8.4-10.2) mg/dL Total Bilirubin 0.3 (0.2-1.3) mg/dL AST 24 (14-36) U/L ALT 19 (6-35) U/L Alkaline Phosphatase 83 (38-126) U/L Total Protein 7.0 (6.3-8.2) g/dL Albumin 3.7 (3.5-5.1) g/dL Blood Type AB Negative Antibody Screen Negative Crossmatch See Detail <José Luis Sy MD - Last Filed: 12/22/23 22:00> Lab Results 12/22/23 12/22/23 Range/Units 17:56 18:48 WBC 7.4 (4.5-10.0) K/mm3 RBC 2.34 L (4.2-5.4) M/mm3 Hgb 7.1 L (12.0-15.0) g/dL Hct 21.8 L (37.0-47.0) % MCV 93.2 (80-100) fl MCH 30.3 (26-34) pg MCHC 32.6 (32-36) g/dl RDW 13.6 (11.5-14.5) % Plt Count 401 H D (150-375) k/mm3 MPV 9.4 (7.4-10.4) fl Immature Gran % (Auto) 0.3 (0-0.5) % Neut % (Auto) 52.4 (45.5-73.1) % Lymph % (Auto) 34.3 (18.3-44.2) % [place] % (Auto) 9.5 H (2.6-8.5) % Eos % (Auto) 2.0 (0-4.4) % Baso % (Auto) 1.5 H (0.2-1.2) % Lymph # (Auto) 2.52 (0.9-3.2) K/mm3 [place] # (Auto) 0.7 H (0.1-0.6) K/mm3 Eos # (Auto) 0.2 (0-0.3) K/mm3 Baso # (Auto) 0.1 (0.0-0.1) K/mm3 Abs Immat Gran (auto) 0.02 (0.00-0.031) K/mm3 Absolute Neuts (auto) 3.9 (1.3-6.7) K/mm3 Absolute Nucleated RBC 0.000 (0.0-0.012) K/mm3 Nucleated RBC % 0.0 (0.0-0.2) % Sodium 137 (137-145) mmol/L Potassium 3.5 (3.4-5.0) mmol/L Chloride 105 (98-107) mmol/L Carbon Dioxide 19 L (22-30) mmol/L Anion Gap 13 H (4-12) mmol/L BUN 38 H D (7-17) mg/dL Creatinine 0.60 L (0.7-1.0) mg/dL Estim Creat Clear Calc Not Reportable Estimated GFR > 60 (59 - ) Glucose 128 H (65-110) mg/dL Calcium 9.0 (8.4-10.2) mg/dL Total Bilirubin 0.3 (0.2-1.3) mg/dL AST 24 (14-36) U/L ALT 19 (6-35) U/L Alkaline Phosphatase 83 (38-126) U/L Total Protein 7.0 (6.3-8.2) g/dL Albumin 3.7 (3.5-5.1) g/dL Blood Type AB Negative Antibody Screen Negative Crossmatch See Detail <Amor Lara MD - Last Filed: 12/23/23 01:43> Imaging Data Radiologist's impression: ITS Impressions Chest X-Ray 12/22/23 18:45 IMPRESSION: No focal infiltrate or effusion. <José Luis Sy MD - Last Filed: 12/22/23 22:00> ECG Data EKG #1: ECG completion date: 12/22/23 <José Luis Sy MD - Last Filed: 12/22/23 22:00> ECG completion time: 17:48 <José Luis Sy MD - Last Filed: 12/22/23 22:00> EKG Interpretation: normal rate (83), non-specific ST changes ( deep T-wave inversion inferior leads as well as V4 and V5.), normal QRS, normal QT and other ( Paced) <José Luis Sy MD - Last Filed: 12/22/23 22:00> Discharge Plan Discharge Clinical Impression: Anemia, Syncope <José Luis Sy MD - Last Filed: 12/22/23 22:00> Patient Disposition: Acute Care Hospital <José Luis Sy MD - Last Filed: 12/22/23 22:00> Condition: Stable <José Luis Sy MD - Last Filed: 12/22/23 22:00> Prescriptions: No Action amoxicillin-pot clavulanate 875-125 mg tablet 1 tablet PO Q12H 10 Days Qty: 20 0RF <José Luis Sy MD - Last Filed: 12/22/23 22:00> Follow-up/Referrals: Garrison,Melissa Lyon MD [Primary Care Provider] - <José Luis Sy MD - Last Filed: 12/22/23 22:00> Time of Disposition: 01:42 <José Luis Sy MD - Last Filed: 12/22/23 22:00> 01:42 <Amor Lara MD - Last Filed: 12/23/23 01:43>
[2023-12-22] MEDS: TUBING, BLOOD SET 1 EACH XX ×2 (20:49→22:27)
[2023-12-22] MEDS: PANTOPRAZOLE SODIUM IV 40 MG VIAL IV PUSH (20:49)
[2023-12-22] MEDS: SODIUM CHLORIDE 0.9% IV 250 ML 30 ML IV CONT (20:49)
--- NOTE | 2023-12-22 20:50 | PC.NURSE ---
RN spoke with Caryn from [facility] transfer and she states pt has been accepted to [facility]. Caryn also states pt more than likely wont be able to get a bed till the morning due to max capacity. Pt, family, MD, and Charge Nurse notified.
[2023-12-22] MEDS: ACETAMINOPHEN 325 MG TABLET 650 MG PO (21:56)
[2023-12-22] MEDS: SODIUM CHLORIDE 0.9% IV 250 ML 30 ML (22:29)
[2023-12-23 00:26] VITALS: BP 130/76; PULSE 79; RESP 13; TEMP 36.8; O2SAT 97
[2023-12-23 01:46] VITALS: BP 126/74; PULSE 80; RESP 12; O2SAT 97
--- NOTE | 2023-12-23 02:00 | PC.NURSE ---
This RN spoke with [facility]'s banquet pilot Garo to give report. Garo from [facility] states pt has a bed but they had 7 other admissions and has no tele boxes left to monitor pt. [facility] me a call back once they figure out how many tele boxes they have left or how long it will take for them to get one available.
[2023-12-23 03:04] VITALS: BP 117/77; PULSE 84; RESP 12; O2SAT 99
--- NOTE | 2023-12-23 03:21 | PC.NURSE ---
RN spoke with Lowell from [facility] and gave report about pt.
[2023-12-23 03:31] VITALS: BP 109/69; PULSE 80; RESP 14; O2SAT 98
== END 2023-12-23 03:47 | disposition short-term general hospital (02) ==
PROVIDERS: Emergency Provider Emergency Medicine; PCP Hospitalist
DX: D64.9 Anemia, unspecified (principal); R55 Syncope and collapse; I34.1 Nonrheumatic mitral (valve) prolapse; Z95.0 Presence of cardiac pacemaker; Z95.2 Presence of prosthetic heart valve; I44.0 Atrioventricular block, first degree; R94.31 Abnormal electrocardiogram [ECG] [EKG]
CPT/HCPCS: 36415; 36430; 71045; 80053; 85025; 86850; 86900; 86901; 86920; 93005; 96361; 96374; 99285; A9270; J2470; J7050; P9016

== ENCOUNTER 2024-06-11 09:37 | Outpatient (CLI) | payer OTHER, SELFPAY ==
--- NOTE | ~2024-06-11 | MM_ITS ---
EXAMINATION: MM screening nova BI w celso HISTORY: Screening mammogram TECHNIQUE: Craniocaudal and mediolateral oblique 3-D tomosynthesis images were obtained and synthetic 2-D images were generated. CAD analysis was submitted and interpreted. COMPARISON: 06/09/2023, 01/20/2022, 05/08/2020 BREAST PARENCHYMAL COMPOSITION:Dense: The breasts are heterogeneously dense, which may obscure small masses. FINDINGS: No suspicious mass, calcification, or architectural distortion are identified in either matteo ast to suggest malignancy. There has been no suspicious interval change. IMPRESSION: No mammographic evidence of malignancy. Recommend routine screening mammography in one year. BI-RADS Category 1: Negative Reviewed, dictated and finalized at location .
--- OUTSIDE RECORDS SUMMARY | 2024-06-11 10:34 | XMS_ITS | Patient Health Record ---
Author Organization 1 OF Wilder mandujano [facility] Address [address] [place] [address] Care Team Providers Care Oyster Harvester Name Role Phone Bladimir CADET, Dr. Torres Primary Care Provider U Teto Montez Unavailable [phone] Mi Nolan Unavailable [phone] Allergies No Known Allergies Reason For Referral No Information Medications Medication SIG (Take, Route, Frequency, Duration) Notes Start Date End Date Status ZyrTEC Active Social History Tobacco Use: Social History Observation Description Date Details (start date - stop date) Never Smoker NA - NA Tobacco Control (Standard) Question Answer Notes Tobacco use: Nonsmoker Plan Of Treatment No Information Insurance Providers Payer Name Payer Address Payer Phone Subscriber Number Group Number Insured Name Patient Relationship to Insured Coverage Start Date Coverage End Date [employer] [address] [place], [place] [id number] Kizzy Navarro Self - patient is the insured Medical (General) History Medical History History ICD Code migraines, high cholesterol
--- OUTSIDE RECORDS SUMMARY | 2024-06-11 10:34 | XMS_ITS | Encounter Summary ---
Author Organization [facility] Address [facility]ly [facility] [place] [address] Care Team Providers Care Custom Shoe Designer And Maker Name Role Phone Akil Norton MD Primary Care Provider U Manuelito Gonzales MD Unavailable [phone] None, Provider Primary Care Provider Unavaila Melissa Black MD Primary Care Provider [phone] Encounter Details Date Type Department Care Team (Late st Contact Info) Description 10/19/2019 Prep for Procedure [facility] [address] [place], [place] [id number] Dipesh Chen MD [address] [place] [address] [id number] Social History Tobacco Use Types Packs/Day Years Used Date Smoking Tobacco: Former Cigarettes 0.3 2 1 989 - 1990 Smokeless Tobacco: Never Alcohol Use Standard Drinks/Week Comments Yes 0 (1 standard drink = 0.6 oz pur e alcohol) rarely Education Answer Date Recorded What is the highest level of school you have completed or the highest degree you have received? 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 No / Unsure 10/21/2019 7:21 AM CDT documented as of this encounter Plan of Treatment Not on file documented as of this encounter Results * PRE-SURGICAL/PRE-PROCEDURE CORONAVIRUS (COVID 19) (10/21/2019 7:22 AM CDT) CORONAVIRUS SARS COV 2 PCR (RESP) NOT DETECTED NOT DETECTED 10/22/2019 6:35 PM CDT [facility] Comment: A Not Detected (negative) test result for this test means that SARS- CoV-2 RNA was not present in the specimen above the limit of detection. A negative result does not rule out the possibility of COVID-19 and should not be used as the sole basis for treatment or patient management decisions. If COVID-19 is still suspected, based on exposure history together with other clinical findings, re-testing should be considered in consultation with public health authorities. Laboratory test results should always be considered in the context of clinical observations and epidemiological data in making a final diagnosis and patient management decisions. Please review the Fact Sheets and FDA authorized labeling available for health care providers and patients using the following websites: https://www.[employer].com/home/Covid-19/HCP/NAAT/fact-sheet2 https://www.[employer]/home/Covid-19/Patients/NAAT/ fact-sheet2 This test has been authorized by the FDA under an Emergency Use Authorization (EUA) for use by authorized laboratories. Due to the current public health emergency, [facility] is receiving a high volume of samples from a wide variety of swabs and media for COVID-19 testing. In order to serve patients during this public health crisis, samples from appropriate clinical sources are being tested. Negative test results derived from specimens received in non-commercially manufactured viral collection and transport media, or in media and sample collection kits not yet authorized by FDA for COVID-19 testing should be cautiously evaluated and the patient potentially subjected to extra precautions such as additional clinical monitoring, including collection of an additional specimen. Methodology: Nucleic Acid Amplification Test (NAAT) includes PCR or TMA Additional information about COVID-19 can be found at the [facility] website: www.[employer]Covid19. Test performed at [facility] [address] [facility] [place] [address] Director: TOMASA VILLA DO,MPH NASOPHARYNGEAL SWAB / Unknown 10/21/2019 7:22 AM CDT us Dipesh Chen MD MICROBIOLOGY - GENERAL ORDERABLE S Final Result [facility] [address] [place], [place] [id number] [place] [address] documented in this encounter Visit Diagnoses Diagnosis Preop testing- Primary Preoperative examination, unspecified documented in this encounter Additional Health Concerns Infection Onset Date Last Indicated Resolved Time COVID-19 Rule Out 10/21/2019 10/21/2019 10/22/2019 6:35 PM CDT documented as of this encounter Care Teams Custom Shoe Designer And Maker Relationship Specialty Start Date End Date Akil Norton MD PCP - General INTERNAL MEDICINE 03/17/16 04/07/23 None, ProviderMD PCP - General UNKNOWN PHYSICIAN SPECIALTY 04/08/23 08/14/23 Melissa Garrison MD [address] [facility] [address] [place] [address] PCP - General FAMILY PRACTICE 08/15/23 Manuelito Faust MD [address] [facility] [address] [place] [address] [place] Rn Hemo Dialysis CARDIOVASCULAR DISEASE 03/23/16 documented as of this encounter
--- OUTSIDE RECORDS SUMMARY | 2024-06-11 10:34 | XMS_ITS | Clinical Summary ---
Author Organization [facility] [place] [address] Care Team Providers Care General Utility Maintenance Repairer Name Role Phone Manuelito Faust MD Unavailable [phone] Melissa Garrison MD Primary Care Provider [phone] Allergies No known active allergies Medications Calcium 500 MG Tab Take 1 tablet by mouth daily. 7 Active bisacodyl (DULCOLAX) 5 MG Tab EC Take 2 tablets (10 mg total) by mouth nightly as needed. at bedtime. 7 Active EPINEPHrine 0.3 MG/0.3ML injection EPINEPHrine 0.3 MG/0.3ML [id number] Active Active fluticasone propionate 50 MCG/ACT nasal spray 1 spray by Each Nostril route daily. 1 8 Active Multiple Vitamin (MULTI-VITAMIN) tablet Take 1 tablet by mouth daily. 7 Active Nutritional Supplements (ESTROVEN OR) Take 1 tablet by mouth daily. Active FLUTICASONE PROPIONATE 50 MCG/ACT nasal sprayIndication s:Sinusitis SPRAY 1 SPRAY INTO EACH NOSTRIL EVERY DAY 16 mL 9 Active Additional Information Patient not taking.Reported on 10/19/2019 vitamin D3, cholecalciferol , 5000 UNITS capsule Take 1 capsule by mouth daily. Active Na sulfate-K sulfate-Mg sulfate (SUPREP BOWEL PREP KIT) 17.5-3.13-1.6 GM/177ML SolutionIndicat ions:Screening for colon cancer Take 177 mLs by mouth every 12 (twelve) hours. Take as directed in the instructions 2 Bottle 0 Active Active Problems Problem Noted Date Diagnosed Date Diverticulitis 10/15/2019 Overview (10/15/2019): Added automatically from request for surgery [id number] LUQ pain 10/15/2019 Overview (10/15/2019): Added automatically from request for surgery [id number] Lipoma of back 05/22/2018 Apnea 08/04/2017 Psoriasis 09/24/2016 Non-rheumatic mitral regurgitation 04/26/2016 Liver mass, right lobe 03/06/2015 Resolved Problems Problem Noted Date Diagnosed Date Resolved Date Vasovagal syncope 04/26/2016 05/22/2018 Dysfunction of both eustachian tubes 03/16/2016 05/22/2018 Diverticulitis 02/19/2015 05/22/2018 Immunizations Immunization Administration Dates Next Due Influenza (Generic) 11/22/2017,11/15/2016 Influenza Adult (Generic) 11/12/2019,11/15/2018 Tdap (Generic) 02/21/2016 Family History Medical History Relation Comments Cardiovascular disease Father Diabetes Father Stroke Father Heart Attack Maternal Grandfather Stroke Maternal Grandfather Heart Attack Paternal Grandfather mvp Sister Relation Status Comments Father Maternal Grandfather Paternal Grandfather Sister Social History Tobacco Use Types Packs/Day Years Used Date Smoking Tobacco: Former Cigarettes 0.3 2 1 989 - 1990 Smokeless Tobacco: Never Tobacco Cessation:Counseling Given: Not Answered Alcohol Use Standard Drinks/Week Comments Yes 2 (1 standard drink = 0.6 oz pur e alcohol) Education Answer Date Recorded What is the highest level of school you have completed or the highest degree you have received? Master's degree (e.g., MA, MS, Jian, MEd, FOOD DEHYDRATOR OPERATOR, DONNA) 05/22/2018 Comments No Sex and Gender Information Value Date Recorded Sex Assigned at Not on file Legal Sex Female 7:22 AM GREETING CARD MAKER Gender Identity Not on file Sexual Orientation Not on file Occupation Industry Job Start Date Job End Date Not on file Not on file Not on file Not on file Last Filed Vital Signs Vital Sign Reading Time Taken Comments Blood Pressure 112/66 09/11/2023 11:00 AM CDT Pulse 77 09/11/2023 10:00 AM CDT Temperature 36.2 C (97.2 F) 09/11/2023 6:18 AM CDT Respiratory Rate 20 09/11/2023 10:00 AM CDT Oxygen Saturation 95% 09/11/2023 10:00 AM CDT Inhaled Oxygen Concentration - - Weight 58.2 kg (128 lb 4.9 oz) 09/11/2023 6:18 A M CDT Height 165.1 cm (5' 5 ) 09/11/2023 6:18 AM CDT Body Mass Index 21.35 09/11/2023 6:18 AM CDT Plan of Treatment Health Maintenance Due Date Last Done Comments Annual Physical 1972 Hepatitis B Vaccines (1 of 3 - 19+ 3-dose series) 1988 Pneumococcal Vaccine: 50+ Years (1 of 2 - PCV) 1988 Mammogram Screening 05/08/2022 05/08/2020 COVID-19 Vaccine (4 - 2023-2 5 season) 2023 01/15/2021, 06/02/2020, 05/12/2020 Colorectal Cancer Screening Colonoscopy (10 Years) 10/23/2029 2019 DTaP, Tdap and Td Vaccines ( 3 - Td or Tdap) 01/03/2030 01/04/2020, 02/21/2016 Hepatitis C Completed 03/18/2015 Zoster Vaccines Completed 03/04/2020, 01/04/2020 Meningococcal B Vaccine Aged Out No l onger eligible based on patient's age to complete this topic Meningococcal Vaccine Aged Out No charles louise eligible based on patient's age to complete this topic RSV Immunizations Under 20 Months Aged Out No longer eligible b ased on patient's age to complete this topic Procedures Procedure Name Priority Date/Time Associated Diagnosis Comments MAMMOGRAM GENERIC (SCAN ORDER) 05/08/2020 HEPATITIS A,B,& C Routine 03/18/2015 3:3 1 PM GREETING CARD MAKER from Last 3 Months or Most Recently Relevant to Health Maintenance Results * MAMMOGRAM GENERIC (05/08/2020) Anatomical Region Laterality Modality Other 05/08/2020 Narrative 05/08/2020 Ordered by an unspecified provider. us Documents Scanned SCANNING Final Result * HEPATITIS A,B,& C (03/18/2015 3:31 PM GREETING CARD MAKER) HAV IGM NON-REACTIVE TESTING PERFORMED AT [address] [id number] NR [employer] TO EPIC CONVERSION HEPATITIS B SURFACE AG NON-REACTIVE TESTING PERFORMED AT [address] [id number] NR [employer] TO EPIC CONVERSION HEP B SURFACE AB NON-REACTIVE TESTING PERFORMED AT [place] [id number] [facility] TO EPIC CONVERSION HEP B CORE TOTAL AB NON-REACTIVE TESTING PERFORMED AT [address] [id number] NR [employer] TO EPIC CONVERSION HEPATITIS C AB NON-REACTIVE TESTING PERFORMED AT [place] [id number] NR [employer] TO EPIC CONVERSION 03/18/2015 3:31 PM GREETING CARD MAKER 03/18/2015 3:31 PM GREETING CARD MAKER Narrative [employer] TO EPIC CONVERSION - 03/19/2015 7:51 PM GREETING CARD MAKER Result Communication: No patient communication needed at this time us Akil Norton MD LABORATORY Final Re sult [employer] TO EPIC CONVERSION from Last 3 Months or Most Recently Relevant to Health Maintenance Insurance [employer] [facility]ESS [facility] [employer] OPEN ACCESS [facility] Care Teams General Utility Maintenance Repairer Relationship Specialty Start Date End Date Melissa Garrison MD [address] [place] [address] [address] [place] [address] PCP - General FAMILY PRACTICE 08/15/23 Manuelito Faust MD [facility] [address] [place], [place] [address] [employer] Setter Cold Rolling Machine CARDIOVASCULAR DISEASE 03/23/16
--- OUTSIDE RECORDS SUMMARY | 2024-06-11 10:35 | XMS_ITS | Encounter Summary ---
Author Organization [facility] Address [address] [place] [address] Care Team Providers Care Longwall Foreman Name Role Phone Melissa Garrison MD Primary Care Pro vider Abundio Kaur MD Unavailable [phone] Rob Bingham MD Unavailable [phone] Reason for Visit * Reason Comments Follow-up EGD F/U Encounter Details Date Type Department Care Team (Latest Contact Info) Description 06/06/2024 2:00 PM CDT Office Visit [facility] Gastroenterology at [address] [place] [id number] Elyssa Weeks, [place] [address] [address] Multiple duodenal ulcers (Primary Dx); Reactive gastropathy Social History Tobacco Use Types Packs/Day Years Used Date Smoking Tobacco: Never Smokeless Tobacco: Never Tobacco Cessation:Counseling Given: Not Answered [facility] Utilities Answer Date Recorded In the past 12 months has [employer] electric, gas, oil, or water company threatened to shut off services in your home? No 12/05/2023 Social Connection and Isolat ion Panel [NHANES] Answer Date Recorded In a typical week, how many times do you talk on the phone with family, friends, or neighbors? More than three times a week 12/05/2023 How often do you get togethe r with friends or relatives? More than three times a week 12/05/2023 How often do you attend chur ch or baptist services? Never 12/05/2023 Do you belong to any clubs o r organizations such as jainism groups, unions, fraternal or athletic groups, or school groups? No 12/05/2023 How often do you attend meet ings of the clubs or organizations you belong to? Never 12/05/2023 Are you , , di vorced, , never , or living with a partner? 12/05/2023 AUDIT-C Answer Date Recorded Q1: How often do you have a drink containing alcohol? 4 or more times a week 04/09/2024 Q2: How many drinks containi ng alcohol do you have on a typical day when you are drinking? 1 or 2 Q3: How often do you have si x or more drinks on one occasion? Never 04/09/2024 Overall Financial Resource Strain (CARDIA) Answe r Date Recorded How hard is it for you to pa y for the very basics like food, housing, medical care, and heating? Not hard at all 12/05/2023 PHQ-2 Answer Date Recorded PHQ-2 Total Score (If total score is 3 or more points, staff should administer the PHQ-9) 0 04/09/2024 Hunger Vital Sign Answer Date Recorded Within the past 12 months, y ou worried that your food would run out before you got the money to buy more. Never true 12/05/19 Within the past 12 months, t he food you bought just didn't last and you didn't have money to get more. Never true 12/05/2023 PRAPARE - Transportation Answer Date Re corded In the past 12 months, has l ack of transportation kept you from medical appointments or from getting medications? No 11/15 In the past 12 months, has l ack of transportation kept you from meetings, work, or from getting things needed for daily living? No 12/05/2023 PHQ-9 Answer Date Recorded PHQ-9 Total Score 3 04/09/2024 Housing Stability Vital Sign Answer Silvino e Recorded In the last 12 months, was t here a time when you were not able to pay the mortgage or rent on time? Patient declined 12/05/19 In the past 12 months, how m any times have you moved where you were living? 0 12/05/2023 At any time in the past 12 m [facility], were you homeless or living in a detention (including now)? No 12/05/2023 Personal Safety Answer Date Recorded Have you ever been in or are you currently in a harmful physical or emotional relationship or is someone making you feel afraid or unsafe? Denies 03/08/2024 Comments No Sex and Gender Information Value Date Recorded Sex Assigned at Not on file Legal Sex Female 8:50 AM CDT Gender Identity Not on file Sexual Orientation Not on file documented as of this encounter Last Filed Vital Signs Vital Sign Reading Time Taken Comments Blood Pressure 131/83 06/06/2024 1:23 PM CDT Pulse 72 06/06/2024 1:23 PM CDT Temperature - - Respiratory Rate - - Oxygen Saturation 100% 06/06/2024 1:23 PM CDT Inhaled Oxygen Concentration - - Weight 58.2 kg (128 lb 6.4 oz) 06/06/2024 1:23 P M CDT Height 165.1 cm (5' 5 ) 06/06/2024 1:23 PM CDT Body Mass Index 21.37 06/06/2024 1:23 PM CDT documented in this encounter Ordered Prescriptions Prescription Sig Dispense Quantity Refills Last Filled Start Date End Date pantoprazole DR (PROTONIX) 40 mg EC tabletIndications: Multiple duodenal ulcers Take 1 tablet (40 mg total) by mouth daily Please take 30 minutes before breakfast or dinner 90 tablet 3 06/06/2024 documented in this encounter Miscellaneous Notes * Assessment & Plan Note - Elyssa Weeks NP - 06/10/2024 7:11 PM CDT Associated Problem(s): Reactive gastropathy Present on EGD 12/2023 and 02/2024. Negative H pylori Has been taking pantoprazole 40 mg daily On aspirin 81 mg daily Likely from chronic ASA use, alcohol use possibly contributing See above plan * Assessment & Plan Note - Elyssa Weeks NP - 06/10/2024 7:02 PM CDT Associated Problem(s): Multiple duodenal ulcers Now resolved. Repeat EGD 03/08 showing normal duodenum without ulceration. Biopsies negative for H pylori. Initially identified on EGD 12/2023 during hospitalization for anemia with melena s/p recent MV repair and pacemaker insertion. On aspirin 81 mg daily. Previously on 324 mg daily. Likely from chronic ASA use. No abdominal pain, N/V, or signs of GI blood loss. Plan - Continue pantoprazole 40 mg daily given patient requires chronic aspirin use. Take this medication on empty stomach 30 minutes before meals - Avoid alcohol use - Monitor for symptoms of recurrent ulceration including epigastric/abdominal pain, pain that worsens with eating, nighttime pain, or signs of GI blood loss documented in this encounter Plan of Treatment Not on file documented as of this encounter Visit Diagnoses Diagnosis Multiple duodenal ulcers- Primary Reactive gastropathy documented in this encounter Discontinued Medications Medication Sig Discontinue Reason Start Date End Da te pantoprazole DR (PROTONIX) 40 mg EC tablet Take 1 tablet (40 mg total) by mouth daily Please take 30 minutes before breakfast or dinner Reorder 03/12/2024 06/06/2024 documented as of this encounter Care Teams Longwall Foreman Relationship Specialty Start Date End Date Melissa Garrison MD PCP - General Family Medicine 12/17/21 Abundio Kaur MD [address] [place] [address] Consulting Physician General Surgery 04/06/22 [place] [id number] [facility] [address] [address] Surgeon Cardiothoracic Surgery 12/09/23 documented as of this encounter
--- OUTSIDE RECORDS SUMMARY | 2024-06-11 10:35 | XMS_ITS ---
Author Organization [facility] Address [address] [facility] [address] [place] [address] Care Team Providers Care Lead Trainer Name Role Phone Bladimir CADET, Dr. Torres Primary Care Provider U torstenchristal RojasTeto Unavailable [phone] Teo Coronel Unavailable [phone] Allergies No Known Allergies REASON FOR VISIT RT 2nd toe fracture Medications Medication SIG (Take, Route, Frequency, Duration) Notes Start Date End Date Status ZyrTE Active Social History Tobacco Use: Social History Observation Description Date Details (start date - stop date) Never Smoker NA - NA Tobacco Control (Standard) Question Answer Notes Tobacco use: Nonsmoker Vital Signs Height 65 in 12/24/2022 Weight 130 lbs 12/24/2022 BMI 21.63 kg/m2 12/24/2022 Encounters Encounter Location Date Provider Diagnosis 1 OF Wilder Coronel [facility] [address] [facility] [address] [place] [address] 12/24/2022 Teo Coronel Sprain of interphalangeal joint of toe, initial encounter S93.519A and Toe joint pain, right M25.571 Assessments Encounter Date Diagnosis (ICD Code) Assessment Notes Treatment Notes Treatment Clinical Notes Section Notes 12/24/2022 Sprain of interphalangeal joint of toe, initial encounter (ICD-10 - S93.519A) Patient visit today included a review of medical history, review of systems, physical exam and discussion of exam findings, diagnostic test results, and discussion of diagnoses and treatment options. Advised no definite evidence of fracture and recommended initial treatment today consisting of a topical Voltaren pain gel. Advised if no improvement, a steroid injection into the joint is an option and last resort would be surgery. Pt decided to proceed by treating the pain with topical Voltaren which she will purchase OTC. f/u PRN if condition fails to improve 12/24/2022 Toe joint pain, right (ICD-10 - M25.571) 12/24/2022 Other Plan Of Treatment Treatment Notes Assessment Notes Sprain of interphalangeal navarro int of toe, initial encounter Patient visit today included a review of medical history, review of systems, physical exam and discussion of exam findings, diagnostic test results, and discussion of diagnoses and treatment options. Advised no definite evidence of fracture and recommended initial treatment today consisting of a topical Voltaren pain gel. Advised if no improvement, a steroid injection into the joint is an option and last resort would be surgery. Pt decided to proceed by treating the pain with topical Voltaren which she will purchase OTC. f/u PRN if condition fails to improve Next Appt Details Follow Up: Contact office if condition fails to improve , otherwise RTO PRN with any other concerns, Reason: Progress Notes * LORRAINE Kizzy LDOB: 0 (52 yo F)Acc No.[id number]:12/24/2022 Progress Notes Patient: Kizzy VAZQUEZ Provider: Wilder Coronel DPM :1970 A ge:52 Y S ex:Female Date:12/24/2022 Address:[address] [place] [address] Pcp:Dr. Melissa Garrison MD Subjective: * Chief Complaints: * R T 2nd toe fracture * HPI: Ana Bolton assisting with visit:: HPI/Rooming: Aj sotelo reason for visit:: Pain level: R ight foot: 02/23 today, 06/23 2 days ago. 52 year old female c/o RT RT toe pain. Pt reports that the RT 2nd toe has not healed and might be broken. Pt reports that the injury happened when she was trying to catch herself from a fall and bent the toes backwards. Pt reports that she injured the toe in July and has had sharp, burning pain since which is located mainly around the DIPJ o f the 2nd toe. Pt reports that the toe does not always hurt, but is made worse by running, yoga, exercise, and dress shoes/heels and is excruciating when at its worst. Pt reports that getting off the feet and taping the toes together helps relieve the pain, but has not tried any other treatments. Pt reports the toe was bruised and swollen for a long time and never completely healed. Pt reports she has not seen anyone for treatment since the injury. * Medical History: * Surgical History: N o Surgical History documented. * Hospitalization/Major Diagno stic Procedure: * Family History: diabetes, gout, psoriasis, cancer, heat issues. * Social History: T obacco Use: T obacco Control (Standard) T obacco use: N onsmoker D rugs/Alcohol: A lcohol use: Yes:, Approximate drinks per week: 3. Recreational drugs: Denies All. M iscellaneous: E xercise: Sedentary. Living with: spouse. Occupation: Works full-time. * Medications: T akinyrTE Medication List reviewed and reconciled with the [facility]Taking [facility] reviewed and reconciled with the patient * Allergies: N .K.D.A.no[Allergies Verified] Objective: * Vitals: W t:130lbs, Wt-k.97 kg, Ht: 65 in, BMI:21.63Index. * Examination: G eneral Examination: Constitutional / Appearance: N o acute distress , Well nourished, Appropriate personal hygiene. Mental status: C ooperative, Oriented to person, place and time, Mood and affect: normal, Judgement and intellect: normal with appropriate response to questions. Shoes today: s lip on sandals. L ower Extremity VASCULAR: : Pulses: D P and PT pulses, palpable, bilateral. Temperature gradient: w arm from proximal to distal, bilateral. Pedal hair: p resent, bilateral. L ower Extremity DERM: : Skin: w ell hydrated , no suspicious lesions, without interdigital maceration, bilateral. Hyperkeratotic lesions LEFT foot: n o significant hpk lesions noted. Hyperkeratotic lesions RIGHT foot: n o significant hpk lesions noted. L ower Extremity NEURO: : Neurological status: n ormal sensation to sharp/ dull with normal and symmetric muscle tone bilateral. L ower Extremity MSK: : Gait Gait unremarkable with normal posture, propulsion and balance. Right lower extremity inspection and palpation: R ight second toe exhibits mild edema without erythema or ecchymosis. There is tenderness with palpation most acute at the DIPJ. The nail appears unremarkable with no discoloration or subungual contusion noted. Remainder of right foot exhibits no acute deformities or abnormalities.. ? D iagnostic Studies: : X-rays of right lower extremity: 3 views of right foot: ,No evidence of acute fracture, dislocation, neoplasm or foreign body. Decreased joint space at the PIPJ and DIPJ but no evidence of acute fracture or dislocation. Mild soft tissue edema is noted. Remainder of right foot x-ray appears unremarkable with no acute deformities or abnormalities.. Assessment: * Assessment: 1. T oe joint pain, right - M25.571 2 . S prain of interphalangeal joint of toe, initial encounter - S93.519A (Primary) Plan: * Treatment: * Procedure Codes: 7 3630 X-RAY FOOT (3 views), Modifiers: RT * Follow Up: C ontact office if condition fails to improve , otherwise RTO PRN with any other concerns * Images: * DEPARTMENT MANAGER Sign off status: Completed true * Provider: Wilder Coronel DPM Date: 02/23/2022 Generated for Minh velázquez/Yolanda/Latoyaitting on: 0 06/11/2024 10:34 AM CDT History and Physical Notes * HPI (History of Present Illness) Category Sub-Category Detail Notes Category Not es Primary reason for visit: Pain level: Right foot: 02/23 today, 06/23 2 days ago 52 year old female c/o RT RT toe pain. Pt reports that the RT 2nd toe has not healed and might be broken. Pt reports that the injury happened when she was trying to catch herself from a fall and bent the toes backwards. Pt reports that she injured the toe in July and has had sharp, burning pain since which is located mainly around the DIPJ of the 2nd toe. Pt reports that the toe does not always hurt, but is made worse by running, yoga, exercise, and dress shoes/heels and is excruciating when at its worst. Pt reports that getting off the feet and taping the toes together helps relieve the pain, but has not tried any other treatments. Pt reports the toe was bruised and swollen for a long time and never completely healed. Pt reports she has not seen anyone for treatment since the injury. DL assisting with visit: HPI/Rooming: Paige Examination Category Sub-Category Detail Notes Category Not es General Examination Mental status: Cooperative, Oriented to person, place and time, Mood and affect: normal, Judgement and intellect: normal with appropriate response to questions Shoes today: slip on sandals Constitutional / Appearance: No acute di stress , Well nourished, Appropriate personal hygiene Lower Extremity VASCULAR: Pulses: DP and PT pulse s, palpable, bilateral Temperature gradient: warm from proximal to distal, bilateral Pedal hair: present, bilateral Lower Extremity NEURO: Neurological status: norm al sensation to sharp/ dull with normal and symmetric muscle tone bilateral Lower Extremity MSK: Right lower extremi ty inspection and palpation: Right second toe exhibits mild edema without erythema or ecchymosis. There is tenderness with palpation most acute at the DIPJ. The nail appears unremarkable with no discoloration or subungual contusion noted. Remainder of right foot exhibits no acute deformities or abnormalities. Gait Gait unremarkable wi th normal posture, propulsion and balance Diagnostic Studies: X-rays of right lowe r extremity: 3 views of right foot: , No evidence of acute fracture, dislocation, neoplasm or foreign body. Decreased joint space at the PIPJ and DIPJ but no evidence of acute fracture or dislocation. Mild soft tissue edema is noted. Remainder of right foot x-ray appears unremarkable with no acute deformities or abnormalities. Lower Extremity DERM: Skin: well hydra john , no suspicious lesions, without interdigital maceration, bilateral Hyperkeratotic lesions LEFT foot: no sig nificant hpk lesions noted Hyperkeratotic lesions RIGHT foot: no si gnificant hpk lesions noted
--- OUTSIDE RECORDS SUMMARY | 2024-06-11 10:35 | XMS_ITS | Encounter Summary ---
Author Organization [facility] Healthcare Address [address] [place] [address] Care Team Providers Care Supervisor Propellant Charge Loading Name Role Phone Melissa Garrison MD Primary Care Pro vider Abundio Kaur MD Unavailable [phone] Rob Bingham MD Unavailable [phone] Reason for Referral * Consultation (Routine) - Authorized Specialty Diagnoses / Procedures Referred By Catalina [email or web address] Referred To Contact Diagnoses Pre-diabetes Dyslipidemia Melissa Garrison MD [address] [place] [address] Phone: tel: fax: [facility] (All Locations) Referral ID Status Reason Start Date Expiration Date Visits Requested Visits Authorized [id number] Authorized Specialty Services Required 04/16/2024 05/16/2025 1 1 Question Answer What is the purpose for the referral? Dietary Consult Please select the performing region: [facility] (All Locations) [167] # of visits: 1 VITIES CONCIERGE Encounter Details Date Type Department Care Team (Late st Contact Info) Description 04/10/2024 Results Follow-Up [facility] Primary Care at [address] [address] Melissa Garrison MD [address] [place] [id number] Pre-diabetes (Primary Dx); Dyslipidemia Social History Tobacco Use Types Packs/Day Years Used Date Smoking Tobacco: Never Smokeless Tobacco: Never [facility] Utilities Answer Date Recorded In the past 12 months has th e electric, gas, oil, or water company threatened [...] often do you attend chur ch or latter day services? Never 12/05/2023 Do you belong to any clubs o r organizations such as mandaeism groups, unions, fraternal or athletic groups, or [...] money to buy more. Never true 12/05/19 24 Within the past 12 months, t he [...] or rent on time? Patient declined 12/05/19 24 In the past 12 months, how m any times have you moved where you were living? 0 12/05/2023 At any time in the past 12 m [facility], were you homeless or living in a [place] [facility] [place] facility (including now)? No 12/05/2023 Personal Safety Answer [...] on file documented as of this encounter Plan of Treatment Scheduled Referrals Name Type Priority Associated Diagnoses Order Schedule Ambulatory referral to [facility] Outpatient Referral Routine Pre-diabetes Dyslipidemia Expected: 04/30/2024 (Approximate), Expires: 04/16/2025 documented as of this encounter Visit Diagnoses Diagnosis Pre-diabetes- Primary Other abnormal glucose Dyslipidemia Other and unspecified hyperlipidemia documented in this encounter Care Teams Supervisor Propellant Charge Loading Relationship Specialty Start Date End Date Melissa Garrison MD PCP - General Family Medicine 12/17/21 Abundio Kaur MD [address] [place] [address] Consulting Physician General Surgery 04/06/22 [place] [id number] [facility] [address] [address] Surgeon Cardiothoracic Surgery 12/09/23 documented as of this encounter
--- OUTSIDE RECORDS SUMMARY | 2024-06-11 10:35 | XMS_ITS | Encounter Summary ---
Author Organization [facility] Address [facility] [place] [address] Care Team Providers Care Eyeletter Name Role Phone Akil Norton MD Primary Care Provider U Manuelito Gonzales MD Unavailable [phone] None, Provider Primary Care Provider Unavaila Melissa Black MD Primary Care Provider [phone] Encounter Details Date Type Department Care Team (Late st Contact Info) Description 04/27/2016 [facility] AT [address] [address] Evans Syed MA Social History Tobacco Use Types Packs/Day Years Used Date Smoking Tobacco: Never Cigarettes Smokeless Tobacco: Never Alcohol Use Standard Drinks/Week Comments Yes 5 (1 standard drink = 0.6 oz pur e alcohol) 2-3 drinks per week Comments Unknown Sex and Gender Information Value Date Recorded Sex Assigned at Not on file Legal Sex Female 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 [employer] Gender Identity Not on file Sexual Orientation Not on file Occupation Industry Job Start Date Job End Date Not on file Not on file Not on file Not on file documented as of this encounter Plan of Treatment Not on file documented as of this encounter Procedures Procedure Name Priority Date/Time Associated Diagnosis Comments CRP (OUTSIDE LAB) Routine 03/30/2016 CBC (OUTSIDE LAB) Routine 03/30/2016 COMPREHENSIVE METABOLIC PANEL Routine 03/30/2016 documented in this encounter Results * CRP (OUTSIDE LAB) (03/30/2016) CRP 0.48 03/30/2016 [facility] Abstract LAB-OUTSIDE/ABSTRACTED Final Result * (ABNORMAL) COMPREHENSIVE METABOLIC PANEL (03/30/2016) SODIUM S/P/B 136 POTASSIUM S/P/B 4.9 CO2 25 CHLORIDE S/P/B 105 GLUCOSE 90 CALCIUM S/P/B 9.6 BUN 14 CREATININE S/P/B 1.03(A) 0.5 - 1.0 EGFR NON-AFR. AMER. >60 <=90 ALKALINE PHOSPHATASE S/P/B 41 ALT 9 AST 12 BILIRUBIN TOTAL S/P/B 0.3 ALBUMIN S/P/B 4.3 3.5 - 5.0 TOTAL PROTEIN S/P/B 7.6 03/30/2016 [facility] Abstract LABORATORY Final Result * CBC (OUTSIDE LAB) (03/30/2016) WBC 5.4 HGB 12.6 HCT 36.3 PLT 302 03/30/2016 [facility] Abstract LAB-OUTSIDE/ABSTRACTED Final Result documented in this encounter Visit Diagnoses Not on filedocumented in this encounter Additional Health Concerns Infection Onset Date Last Indicated Resolved Time COVID-19 Rule Out 10/21/2019 10/21/2019 10/22/2019 6:35 PM CDT documented as of this encounter Care Teams Eyeletter Relationship Specialty Start Date End Date Akil Norton MD PCP - General INTERNAL MEDICINE 03/17/16 04/07/23 None, MD Rusty PCP - General UNKNOWN PHYSICIAN SPECIALTY 04/08/23 08/14/23 Melissa Garrison MD [address] [place] [id number] PCP - General FAMILY PRACTICE 08/15/23 Manuelito Faust MD [facility] [address] [address] Isaura Rivet Sorter CARDIOVASCULAR DISEASE 03/23/16 documented as of this encounter
--- OUTSIDE RECORDS SUMMARY | 2024-06-11 10:35 | XMS_ITS ---
Author Organization 1 [facility] mandujano D[facility] Address [address] [facility] [address] [place] [address] Care Team Providers Care Vice President & General Manager [employer] Name Role Phone Bladimir CADET, Dr. Torres Primary Care Provider U Teto Montez Unavailable [phone] Mi Nolan Unavailable [phone] REASON FOR VISIT f/u left toe wound Encounters Encounter Location Date Provider Diagnosis [facility] Celeste Coronel DPM [address] [place] [address] 03/27/2024 iM Nolan Plan Of Treatment No Information Progress Notes * Kizzy PETERS LDOB: 0 (53 yo F)Acc No.[id number]:03/27/2024 Progress Notes Patient: Kizzy VAZQUEZ Provider: Michelle Nolan DPM :1970 A ge:53 Y S ex:Female Date:03/27/2024 Address:[address] [facility] Pcp:Dr. Melissa Garrison MD Subjective: * Chief Complaints: * 1 . F/u left toe wound. * Medical History: Objective: * Vitals: Assessment: Plan: * Treatment: * Images: * Electronic signature of Luli Nolan DPM on 06/11/2024 at 10:35 AM CDT Sign off status: Pending * Provider: Michelle Nolan DPM Date: 0 03/27/2024 Generated for Minh velázquez/Yolanda/eTransmitting on: 0 06/11/2024 10:35 AM CDT
--- OUTSIDE RECORDS SUMMARY | 2024-06-11 10:35 | XMS_ITS | Clinical Summary ---
Author Organization [facility] Address [address] [place] [address] Phone Care Team Providers Care Quality Tech Name Role Phone Melissa Garrison MD Primary Care Pro vider Abundio Kaur MD Unavailable [phone] Rob Bingham MD Unavailable [phone] Allergies No known active allergies Medications multivitamin-C o-rqug-tfofxqb s tablet Take 1 tablet by mouth daily 09/25/19 17 Active cholecalcifero l (VITAMIN D-3) 5,000 unit capsule Take 1 capsule (5,000 Units total) by mouth daily Active iron, carbonyl 25 mg iron tablet Take by mouth daily Active magnesium gluconate 200 mg tabletIndicati ons:hypomagnes emia Take 1 tablet (200 mg total) by mouth daily Active fluticasone propionate (FLONASE) 50 mcg/actuation nasal spray Administer 1 spray into each nostril daily Active melatonin 5 mg tablet nightly as needed Active aspirin 81 mg enteric coated tablet Take 1 tablet (81 mg total) by mouth daily 30 tablet 1 12/10/19 24 Active polyethylene glycol (MIRALAX) 17 gram/dose bulk powderIndicati ons:constipati on Take 17 g by mouth daily 12/09/19 24 Active docusate sodium (STOOL SOFTENER ORAL) Take by mouth A ctive cyanocobalamin (Vitamin B-12) 1,000 mcg tabletIndicati ons:Paresthesi a TAKE 1 TABLET BY MOUTH DAILY 30 tablet 11 03/14/19 25 Active sertraline (ZOLOFT) 100 mg tabletIndicati ons:GONZALO (generalized anxiety disorder) Take 1 tablet (100 mg total) by mouth daily 90 tablet 1 04/09/[address] (PROTONIX) 40 mg EC tabletIndicati ons:Multiple duodenal ulcers Take 1 tablet (40 mg total) by mouth daily Please take 30 minutes before breakfast or dinner 90 tablet 3 06/07/[address] (PROTONIX) 40 mg EC tablet Take 1 tablet (40 mg total) by mouth daily Please take 30 minutes before breakfast or dinner 90 tablet 3 03/12/19 25 025 Discontinu ed(Reorder ) nirmatrelvir 300 mg-ritonavir 100 mg (PAXLOVID 300mg-100 mg) tablets,dose pack tablets in a dose packIndication s:COVID Take 300 mg nirmatrelvir (2 x 150 mg tablets) with 100 mg ritonavir (1 x 100 mg tablet) with all three tablets taken together by mouth twice daily for 5 days. 30 tablet 05/11/19 25 025 Active Problems Problem Noted Date Diagnosed Date Reactive gastropathy 06/10/2024 Assessment & Plan (06/10/2024 7:28 PM CDT): Present on EGD 12/2023 and 02/2024. Negative H pylori Has been taking pantoprazole 40 mg daily On aspirin 81 mg daily Likely from chronic ASA use, alcohol use possibly contributing See above plan Gastritis without bleeding 03/08/2024 Assessment & Plan (04/09/2024 9:12 AM SPUDDER): Persistent gastritis on repeat EGD, but duodenal ulcer not identified Continue 40mg protonix Continue to avoid NSAIDS Follow up with GI Multiple duodenal ulcers 01/04/2024 Assessment & Plan (06/10/2024 7:31 PM CDT): Now resolved. Repeat EGD 03/08 showing normal [...] pain, or signs of GI blood loss H/O mitral valve repair 01/02/2024 Assessment & Plan (04/09/2024 9:09 AM SPUDDER): Following with cardiology, reviewed last note Atrial tachycardia 01/02/2024 Assessment & Plan (04/09/2024 9:10 AM SPUDDER): Following with cardiology, reviewed last note, didn't add beta-tory 2/2 low blood pressure Cardiac pacemaker in situ 12/08/2023 Overview (12/12/2023): [employer] 2272 Dual Pacemaker. Hx: SSS, CHB. DOI: 12/07/2023 [facility] Assessment & Plan (04/09/2024 9:10 AM SPUDDER): Following with cardiology, reviewed last note Assessment & Plan (12/27/2023 4:46 PM SPUDDER): For complete heartblock Following with cardiology Sick sinus syndrome 12/06/2023 Severe mitral valve regurgitation 11/15/2023 Mitral valve prolapse 05/16/2023 Assessment & Plan (09/13/2023 6:15 AM CDT): Chronic, stability unknown Referral made to Cardiothoracic surgeon for further evaluation and management Murmur, heart 03/28/2023 Assessment & Plan (09/13/2023 6:15 AM CDT): Chronic, stability unknown, diagnosed with mitral valve prolapse Referral made to Cardiothoracic surgeon for further evaluation and management Assessment & Plan (04/04/2023 9:00 AM SPUDDER): Following with cardiology, reviewed note Upcoming ECHO Family history of early CAD 03/28/2023 Assessment & Plan (04/04/2023 8:59 AM SPUDDER): Following with cardiology, reviewed note Annual physical exam 12/17/2021 Assessment & Plan (04/09/2024 9:10 AM SPUDDER): Reviewed PMH & FH PHQ reviewed Reviewed medications and supplements HCM: orders placed as needed Assessment & Plan (04/04/2023 8:52 AM SPUDDER): Reviewed PMH & FH PHQ reviewed Reviewed medications and supplements HCM: orders placed as needed Assessment & Plan (12/17/2021 11:00 AM CDT): Reviewed PMH & PHQ Screening PHQ-2 Total Score (If total score is 3 or more points, staff should administer the PHQ-9): 0 PHQ-9 Total Score: 3 Reviewed medications and supplements HCM: orders placed as needed GONZALO (generalized anxiety disorder) 12/17/2021 Assessment & Plan (04/09/2024 9:10 AM SPUDDER): controlled Continue zoloft Assessment & Plan (09/13/2023 6:15 AM CDT): Chronic, uncontrolled on medication Increase dose of sertraline from 50 mg to 100 mg daily Encouraged follow-up with PCP Assessment & Plan (04/04/2023 8:57 AM SPUDDER): Uncontrolled Just restarted zoloft Assessment & Plan (12/17/2021 11:01 AM CDT): Stable Continue zoloft Resolved Problems Problem Noted Date Diagnosed Date Resolved Date Acute GI bleeding 12/23/2023 04/09/2024 Assessment & Plan (12/27/2023 4:18 PM SPUDDER): Reviewed discharge summary Continue protonix and iron supplement Encouraged to contact GI to schedule repeat EGD in 2m Acute mitral regurgitation 12/01/2023 1 03/03/2023 Mitral valve insufficiency 10/06/2023 1 03/03/2023 Assessment & Plan (12/27/2023 4:46 PM SPUDDER): S/p repair On potassium wasting diuretic therapy 09/13/2023 04/09/2024 Assessment & Plan (09/13/2023 6:14 AM CDT): Continued on furosemide, will monitor electrolytes and renal function Acute pulmonary edema 09/13/20232024 Assessment & Plan (09/13/2023 6:17 AM CDT): New diagnosis Reviewed ER notes and test results from 09/11/2023 Continued on furosemide Ordered labs Encouraged to follow-up with entry level account representative Referral made to Cardiothoracic surgeon Advised ER evaluation if new or worsening symptoms Encounters Date Type Department Care Team Description 06/06/2024 2:00 PM CDT Office Visit [facility] Gastroenterology at [address] [place] [phone] Elyssa Weeks NP Multiple duodenal ulcers (Primary Dx); Reactive gastropathy 05/29/2024 Results Follow-Up [facility] Gastroenterology at [address] [place] [phone] Carolyn Dillard MA 05/10/2024 E-Visit [facility] Primary Care at [address] [place] [phone] Melissa Garrison MD Your Medications 04/16/2024 12:15 PM SPUDDER Office Visit [facility] Medical Group Cardiology [address] [address] [place] [phone] Yenni Reyes MD H/O mitral valve repair (Primary Dx); Cardiac pacemaker in situ; Atrial tachycardia; Family history of early CAD 04/10/2024 10:00 AM SPUDDER Office Visit [facility] Surgery [address] [place] [address] [place] [phone] Meli Garrison NP S/P MVR (mitral valve repair) (Primary Dx) 04/10/2024 9:15 AM SPUDDER Lab [address] [address] Encounter for screening for other viral diseases; Annual physical exam; Family history of diabetes mellitus 04/10/2024 Results Follow-Up [facility] Primary Care at [address] [place] [phone] Melissa Garrison MD Pre-diabetes (Primary Dx); Dyslipidemia 04/09/2024 9:30 AM SPUDDER Office Visit [facility] Primary Care at [address] [phone] Melissa Garrison MD Annual physical exam (Primary Dx); Encounter for screening for other viral diseases; Family history of diabetes mellitus; Pharyngitis, unspecified etiology; GONZALO (generalized anxiety disorder); H/O mitral valve repair; Cardiac pacemaker in situ; Atrial tachycardia; Chronic gastritis without bleeding, unspecified gastritis type 04/03/2024 3:00 PM SPUDDER Ancillary Procedure [facility] Cardiology [address] [facility] [address] [place] [phone] Cardiac pacemaker in situ; H/O mitral valve repair 04/03/2024 Telephone [facility] Primary Care at [address] [phone] Melissa Garrison MD 03/30/2024 Telephone [facility] Gastroenterology at [address] [phone] Zoya Mahoney MD 03/14/2024 3:30 PM SPUDDER Ancillary Procedure [facility] Cardiology [address] [facility] [address] [place] [phone] Cardiac pacemaker in situ (Primary Dx); SSS (sick sinus syndrome) (HCC); Complete heart block (HCC) 03/14/2024 Orders Only [facility] Cardiology [address] [facility] [address] [address] Yenni Reyes MD Cardiac pacemaker in situ (Primary Dx); CHB (complete heart block) (HCC); Sick sinus syndrome (HCC) from Last 3 Months Immunizations Immunization Administration Dates Next Due Influenza, Unspecified 11/23/2023,2022,11/16/2021,11/12/2019, 9,11/15/2016 Tdap 01/04/2020,02/21/2016 ZOSTER Recombinant 03/04/2020,01/04/2020 Surgical History Surgery Date Site/Laterality Comments HYSTERECTOMY 02/14/2015 - 02/14/2016 benign mass removed OTHER SURGICAL HISTORY 10/26/2023 ROXY TUMOR REMOVAL 02/14/2022 - 02/13/2023 fatty tumor removed from back CARDIAC CATHETERIZATION 02/14/2023 - 02/14/2024 Medical History Medical History Date Comments Anxiety Sleep difficulties Diverticulosis Depression patient denies Heart murmur Motion sickness Headache Mitral valve prolapse Mitral valve insufficiency, unspecified etiology Hyperlipidemia Syncope last episode was a few years ago Diverticulitis of colon Migraines SOB (shortness of breath) Fatigue Family History Medical History Relation Name Comments Diabetes Father Heart attack Father Hyperlipidemia Father Hypertension Father Stroke Father Hypertension Mother No Known Problems Sister 1 No Known Problems Sister 2 Relation Name Status Comments Father Mother Alive Sister 1 Alive Sister 2 Alive Social History Tobacco Use Types Packs/Day Years Used Date Smoking Tobacco: Never Smokeless Tobacco: Never Tobacco Cessation:Counseling Given: Not Answered [facility] [employer] Answer Date Recorded In the past 12 months has e [employer], gas, oil, or water [employer] threatened to shut off services in your [...] often do you attend chur ch or gnosticist services? Never 12/05/2023 Do you belong to any clubs o r organizations such as holiness groups, unions, fraternal or athletic groups, or [...] any time in the past 12 m [facility], were you homeless or living in a nursing home (including now)? No 12/05/2023 Personal Safety Answer [...] on file Sexual Orientation Not on file Obstetrics History Last Filed Vital Signs Vital Sign Reading Time Taken Comments Blood Pressure 131/83 06/06/2024 1:23 PM CDT Pulse 72 06/06/2024 1:23 PM CDT Temperature 37.3 C (99.1 F) 04/09/2024 9:00 AM SPUDDER Respiratory Rate 14 04/10/2024 10:11 AM SPUDDER Oxygen Saturation 100% 06/06/2024 1:23 PM CDT Inhaled Oxygen Concentration - - Weight 58.2 kg (128 lb 6.4 oz) 06/06/2024 1:23 P M CDT Height 165.1 cm (5' 5 ) 06/06/2024 1:23 PM CDT Body Mass Index 21.37 06/06/2024 1:23 PM CDT Plan of Treatment Health Maintenance Due Date Last Done Comments Breast Cancer Screening-Mammogram 06/08/2024 06/09/2023 Depression Screening 04/09/2025 04/09/2024, 04/04/2023, 04/04/2023, Additional history exists Regular Well Visit/Exam 18-64 04/09/2025 04/09/2024, 04/04/2023, 12/17/2021 Colon Cancer Screening-Colonoscopy 10/23/2029 2019 DTaP/Tdap/Td Vaccine (3 - Td or Tdap) 01/03/2030 01/04/2020, 02/21/2016 Zoster Vaccine Completed 03/04/2020, 01/04/2020 Covid-19 Vaccine Completed 11/23/2023, , 07/10/2021, Additional history exists Influenza Vaccine Completed 11/23/2023, , 11/16/2021, Additional history exists Hepatitis B Screening Completed 04/10/2024 Hepatitis C Screening Completed 04/10/2024 Pneumococcal vaccine <65 Aged Out No longer eligible based on patient's age to complete this topic Medical Devices Implanted Type Area Geriatric Personal Care Aide Device Identifier Shelf Expiration Date Model / Serial / Lot [employer] Tendril Sts 6fr 58cm Is-1 Connector Active Fixation Bipolar Soft [id number]/58 - [id number] - [id number] Implanted:Qty: 1 on 12/07/2023 by Rob Bingham MD at [facility] Lead Right: Ventricle [employer] [id number] 09/13/2026 2088TC/5 8 / [id number] / [employer] Tendril Sts 6fr 52cm Is-1 Connector Active Fixation Bipolar Soft /52 - [id number] - [id number] Implanted:Qty: 1 on 12/07/2023 by Rob Bingham MD at [facility] Lead Right: Heart [employer] [id number] 09/13/2026 2088TC/5 2 / [id number] / Description:RA LEAD [employer] Assurity Mri 20f00cy 2 Chamber Is-1 Connector Thk6mm Pacemaker [id number] - [id number] - [id number] Implanted:Qty: 1 on 12/07/2023 by Rob Bingham MD at [facility] Pacemaker Right: Chest [employer] [id number] 04/13/2025 [id number] / [id number] / [employer] Device Closure Vascade Od5 Fr Femoral Artery [id number] - [id number] Implanted:Qty: 1 on 11/15/2023 by Yenni Reyes MD at [facility] [employer] 06/22/2025 [id number] / / [id number] [employer] Misty-Edw ards Physio Ii 32mm Abreu Sew Mitral Ring [id number] - [id number] - [id number] Implanted:Qty: 1 on 12/01/2023 by Rob Bingham MD at [facility] N/A: Heart [employer] [id number] 01/19/2028 [id number] / [id number] / Procedures Procedure Name Priority Date/Time Associated Diagnosis Comments EGFR Routine 04/10/2024 9:17 AM SPUDDER Annual physical exam DIFFERENTIAL AUTO Routine 04/10/2024 9:1 7 AM SPUDDER Annual physical exam HEMOGLOBIN A1C Routine 04/10/2024 9:17 AM SPUDDER Family history of diabetes mellitus Annual physical exam CBC WITH AUTO DIFFERENTIAL Routine 04/10/2024 9:17 AM SPUDDER Annual physical exam COMPREHENSIVE METABOLIC PANEL Routine 04/10/2024 9:17 AM SPUDDER Annual physical exam THYROID FUNCTION CASCADE Routine 04/10/2024 9:17 AM SPUDDER Annual physical exam LIPID PANEL Routine 04/10/2024 9:17 AM SPUDDER Annual physical exam HEPATITIS C ANTIBODY Routine 04/10/2024 9:17 AM SPUDDER Encounter for screening for other viral diseases HEPATITIS B SURFACE ANTIGEN Routine 04/10/2024 9:17 AM SPUDDER Encounter for screening for other viral diseases HEPATITIS B CORE ANTIBODY, TOTAL Routine 04/10/2024 9:17 AM SPUDDER Encounter for screening for other viral diseases HEPATITIS B SURFACE ANTIBODY (IMMUNE STATUS) Routine 04/10/2024 9:17 AM SPUDDER Encounter for screening for other viral diseases POCT RAPID STREP Routine 04/09/2024 9:13 AM SPUDDER Pharyngitis, unspecified etiology TRANSTHORACIC ECHO (TTE) COMPLETE W DOPPLER/CF WO CONTRAST Routine 04/03/2024 2:16 PM SPUDDER Cardiac pacemaker in situ H/O mitral valve repair DEVICE CHECK - IN OFFICE Routine 03/14/2024 2:50 PM SPUDDER SSS (sick sinus syndrome) (HCC) Complete heart block (HCC) HM MAMMOGRAPHY Routine 06/09/2023 HM COLONOSCOPY Routine 2019 from Last 3 Months or Most Recently Relevant to Health Maintenance Results * eGFR (04/10/2024 9:17 AM SPUDDER) Pathologist [facility] eGFR >90 >=60 mL/min/1. 73 m2 Comment: Interpretive Data Reference Interval Normal >/= 90 mL/min/1.73m2 Mildly decreased* 60 - 89 mL/min/1.73m2 Mildly to moderately decreased 45 - 59 mL/min/1.73m2 Moderately to severely decreased 30 - 44 mL/min/1.73m2 Severely decreased 15 - 29 mL/min/1.73m2 Kidney Failure < 15 mL/min/1.73m2 *Relative to young adult level Estimated glomerular filtration rate is determined by the 2020 CKD-EPI equation recommended by the National Kidney Foundation (A Unifying Approach to GFR Estimation: Recommendations of the NKF-ASK Task Force on Reassessing the Inclusion of Race in Diagnosing Kidney Disease, JASN 2020). The CKD-EPI equation should not be used for patients with unstable renal function and has not been validated in children and those over 70. Current interpretive data was last reviewed 2020. Blood 04/10/2024 9:17 AM SPUDDER 04/10/2024 9:34 AM SPUDDER Melissa Garrison MD LAB BLOOD ORDERAB LES Final Result [facility] [address] Department [place] [address] * (ABNORMAL) Differential, auto (04/10/2024 9:17 AM SPUDDER) Pathologist [facility] Neutrophil abs 1.4(L) 1.5 - 6.5 K/cumm Imm gran abs 0.0 0.0 - 0.1 K/cumm [facility] Lymphocyte abs 1.1 0.8 - 3.3 K/cumm [facility] Monocyte abs 0.5 0.2 - 0.8 K/cumm [facility] Eosinophil abs 0.1 0.0 - 0.5 K/cumm [facility] Basophil abs 0.1 0.0 - 0.1 K/cumm [facility] Neutrophil pct 43.9 % [facility] Comment: Interpretive Data Percent cell count reference ranges are not reported, since discordance with absolute values may lead to misinterpretation of CBC data. Current Interpretive Data was last revised on 2017. Imm gran pct 0.3 % [facility] Comment: Interpretive Data Percent cell count reference ranges are not reported, since discordance with absolute values may lead to misinterpretation of CBC data. Current Interpretive Data was last revised on 2017. Lymphocyte pct 34.3 % [facility] Comment: Interpretive Data Percent cell count reference ranges are not reported, since discordance with absolute values may lead to misinterpretation of CBC data. Current Interpretive Data was last revised on 2017. Monocyte pct 16.4 % [facility] Comment: Interpretive Data Percent cell count reference ranges are not reported, since discordance with absolute values may lead to misinterpretation of CBC data. Current Interpretive Data was last revised on 2017. Eosinophil pct 2.7 % [facility] Comment: Interpretive Data Percent cell count reference ranges are not reported, since discordance with absolute values may lead to misinterpretation of CBC data. Current Interpretive Data was last revised on 2017. Basophil pct 2.4 % [facility] Comment: Interpretive Data Percent cell count reference ranges are not reported, since discordance with absolute values may lead to misinterpretation of CBC data. Current Interpretive Data was last revised on 2017. Blood 04/10/2024 9:17 AM SPUDDER 04/10/2024 9:34 AM SPUDDER Melissa Garrison MD LAB BLOOD ORDERAB LES Final Result [facility] [address] [address] Department [place] [address] * Thyroid Function [place] (04/10/2024 9:17 AM SPUDDER) TSH 1.51 0.30 - 4.20 mcIUnit/mL Blood 04/10/2024 9:17 AM SPUDDER 04/10/2024 9:34 AM SPUDDER Melissa Garrison MD LAB BLOOD ORDERAB LES Final Result Performing Organization Address [facility] Co de Phone Number ANITA ALICIA [address] [address] Department [place] [employer] [place] [address] * (ABNORMAL) CBC with auto differential (04/10/2024 9:17 AM SPUDDER) [facility] WBC 3.3(L) 3.8 - 9.9 K/cumm Hgb 12.1 11.9 - 15.5 g/dL [facility] [place] Hct 37.2 35.6 - 45.5 % [facility] [place] Plt 231 150 - 400 K/cumm [facility] MPV 10.4 9.1 - 12.3 fL [facility] RBC 4.39 3.90 - 5.20 M/cumm [facility] MCV 84.7 81.3 - 96.4 fL [facility] MCH 27.6 27.1 - 33.3 pg [facility] MCHC 32.5 32.3 - 35.7 g/dL [facility] CH RDW CV 16.8(H) 11.1 - 14.9 % [facility] RDW SD 52.7(H) 35.7 - 48.1 fL [facility] NRBC abs 0.00 0.00 - 0.01 K/cumm [facility] Blood 04/10/2024 9:17 AM SPUDDER 04/10/2024 9:34 AM SPUDDER Melissa Garrison MD LAB BLOOD ORDERAB LES Final Result Performing Organization Address [facility] Co de Phone Number ANITA ALICIA [address] [address] Department [place] [employer] [place] [address] * Hepatitis C antibody Blood (04/10/2024 9:17 AM SPUDDER) [facility] Hep C Ab Nonreactive Nonreactive Comment: Interpretive Data Nonreactive: Antibodies to HCV not detected. Does NOT exclude the possibility of recent exposure to HCV. Equivocal: Equivocal for HCV antibodies. Supplemental molecular testing will be automatically performed to determine infection status in accordance with current CDC screening recommendations. Reactive: Positive for HCV antibodies. This may represent current or past HCV infection. Supplemental molecular testing will be automatically performed to determine current infection status in accordance with current CDC screening recommendations. Interpretive data was last revised on 2019. Blood 04/10/2024 9:17 AM SPUDDER 04/10/2024 9:34 AM SPUDDER us Melissa Garrison MD LAB MICROBIOLOGY - GENERAL ORDERABLES Final Result Performing Organization Address [facility] de Phone Number ANITA ALICIA [address] [address] Department [employer] [place] [address] * Hepatitis B core antibody, total Blood (04/10/2024 9:17 AM SPUDDER) Hep B core IgG/IgM Nonreactive Nonreactive Comment:Testing performed by : [facility], [address] [facility], [place]., [address] Blood 04/10/2024 9:17 AM SPUDDER 04/10/2024 2:17 PM SPUDDER us Melissa Garrison MD LAB MICROBIOLOGY - GENERAL ORDERABLES Final Result Performing Organization Address [facility] [place] [address] [address] Department [employer] [place] [address] * Hepatitis B surface antibody (immune status) Blood (04/10/2024 9:17 AM SPUDDER) HBsAb (immune status) Nonreactive Comment: Interpretive Data Nonreactive: This result is consistent with a lack of immunity to Hepatitis B Virus when used in the setting of routine screening. Equivocal: The immune status of the individual should be further assessed, if appropriate, after consideration of clinical status, risk factors, and additional diagnostic information. Reactive: This result is consistent with immunity to Hepatitis B Virus when used in the setting of routine screening. Current interpretive data was last revised on 19. Blood 04/10/2024 9:17 AM SPUDDER 04/10/2024 9:34 AM SPUDDER us Melissa Garrison MD LAB MICROBIOLOGY - GENERAL ORDERABLES Final Result Performing Organization Address [facility] de Phone Number ANITA ALICIA [address] [address] Department [employer] [place] [address] * Hepatitis B Surface Antigen Blood (04/10/2024 9:17 AM SPUDDER) [facility] HepBsAg Nonreactive Nonreactive Blood 04/10/2024 9:17 AM SPUDDER 04/10/2024 9:34 AM SPUDDER Melissa Garrison MD LAB MICROBIOLOGY - GENERAL ORDERABLES Final Result Performing Organization Address [facility] de Phone Number ANITA ALICIA [address] [facility] [employer] [place] [address] * (ABNORMAL) Hemoglobin A1c (04/10/2024 9:17 AM SPUDDER) [facility] Hgb A1C 6.0(H) 4.0 - 5.6 % Estimated Average Glucose 126 mg/dL [facility] AL[facility]IA Comment: The ADA recommends reporting an estimated Average Glucose (eAG) with all Hemoglobin A1c results using the equation derived from a study of 507 normal and diabetic adults. Minority populations were underrepresented and children were not included. (Diabetes Care 31:0722-4452, 2008). The eAG is not equivalent to a fasting glucose. Blood 04/10/2024 9:17 AM SPUDDER 04/10/2024 9:34 AM SPUDDER Melissa Garrison MD LAB BLOOD ORDERAB LES Final Result Performing Organization Address [facility] de Phone Number ANITA ALICIA [address] [employer] [place] [address] * (ABNORMAL) Lipid panel (04/10/2024 9:17 AM SPUDDER) [facility] Cholesterol 252(H) 30 - 199 mg/dL Comment: Interpretive Data Ages < or = 19 years Acceptable: <170 mg/dL Borderline high: 170-199 mg/dL High: >or= 200 mg/dL Ages > or = 20 years Desirable: <200 mg/dL Borderline high: 200-239 mg/dL High: >or= 240 mg/dL Literature References: 1. Expert Panel on Integrated Guidelines for Cardiovascular Health and Risk Reduction in Children and Adolescents. Pediatrics 2011;128:S213 2. NCEP Expert Panel. Circulation 2004;110:227 Current Interpretive Data was last revised on 2017. Triglycerides 65 <=149 mg/dL ANITA Comment: Interpretive Data Ages < or = 9 years Acceptable: <75 mg/dL Borderline high: 75-99 mg/dL High: >or= 100 mg/dL Ages 10 to 20 years Acceptable: <90 mg/dL Borderline high: 90-129 mg/dL High: >or= 130 mg/dL Ages > or = 20 years Desirable: <150 mg/dL Borderline high: 150-199 mg/dL High: 200-499 mg/dL Very high: >or= 499 mg/dL Literature References: 1. Expert Panel on Integrated Guidelines for Cardiovascular Health and Risk Reduction in Children and Adolescents. Pediatrics 2011;128:S213 2. NCEP Expert Panel. Circulation 2004;110:227 Current Interpretive Data was last revised on 2017. HDL 126 >=40 mg/dL ANITA Comment: Interpretive Data Ages < or = 19 years Acceptable: >45 mg/dL Borderline low: 40-45 mg/dL Low: <40 mg/dL Ages > or = 20 years Desirable: >or= 60 mg/dL Low: <40 mg/dL Literature References: 1. Expert Panel on Integrated Guidelines for Cardiovascular Health and Risk Reduction in Children and Adolescents. Pediatrics 2011;128:S213 2. NCEP Expert Panel. Circulation 2004;110:227 Current Interpretive Data was last revised on 2017. LDL, calculated 115 <=129 mg/dL ANITA Comment: Interpretive Data Ages < or = 19 years Acceptable: <110 mg/dL Borderline high: 110-129 mg/dL High: >or= 130 mg/dL Ages > or = 20 years Optimal: <100 mg/dL Near optimal: 100-129 mg/dL Borderline high: 130-159 mg/dL High: >160 mg/dL Calculated using the [place] LDL-C estimating equation. This equation was implemented on 2023. Prior to this date LDL-C was estimated using the Friedewald equation. Literature References: 1. Expert Panel on Integrated Guidelines for Cardiovascular Health and Risk Reduction in Children and Adolescents. Pediatrics 2011;128:S213 2. NCEP Expert Panel. Circulation 2004;110:227 3. Renan M et al. GARRY Cardiol. 2020 June 14;5(5):540-548. doi: 10.1001/[email or web address] Current Interpretive Data was last revised on 2023. Non-HDL Cholesterol 126 mg/dL CERNER Comment: Interpretive Data Ages < or = 19 years Acceptable: <120 mg/dL Borderline high: 120-144 mg/dL High: >145 mg/dL Ages > or = 20 years When triglycerides are >200 mg/dL, Non-HDL cholesterol is a secondary target of therapy with treatment goals that are 30 mg/dL greater than the LDL cholesterol target. Literature References: 1. Expert Panel on Integrated Guidelines for Cardiovascular Health and Risk Reduction in Children and Adolescents. Pediatrics 2011;128:S213 2. NCEP Expert Panel. Circulation 2004;110:227 Current Interpretive Data was last revised on 2017. Chol/HDL ratio 2 CERNER CH Blood 04/10/2024 9:17 AM SPUDDER 04/10/2024 9:34 AM SPUDDER us Melissa Garrison MD LAB BLOOD ORDERAB LES Final Result [facility] [address] [address] Department [place] [address] * Comprehensive metabolic panel (04/10/2024 9:17 AM SPUDDER) [facility] Signature Sodium 137 135 - 145 mmol/L Potassium, pl 4.3 3.3 - 4.9 mmol/L CERNER Chloride 99 97 - 110 mmol/L CERNER CH CO2 26 22 - 32 mmol/L CERNER CH Anion gap 12 2 - 15 mmol/L CERNER CH BUN 14 6 - 25 mg/dL CERNER CH Creatinine 0.69 0.60 - 1.10 mg/dL CERNER CH Glucose 86 70 - 199 mg/dL CERNER Comment: Interpretive Data Fasting glucose >/= 126 mg/dl is diagnostic for diabetes. Fasting is defined as no caloric intake for at least 8 hours. Fasting glucose between 100 mg/dl to 125 mg/dl is diagnostic of prediabetes. In a patient with classic symptoms of hyperglycemia or hyperglycemic crisis, a random glucose >/= 200 mg/dl is diagnostic for diabetes. In the absence of unequivocal hyperglycemia, results should be confirmed by repeat testing. The classification and Diagnosis of Diabetes Diabetes Care 2021; 46: S19-S40. Current interpretive data was last revised 2022. Calcium 9.9 8.5 - 10.3 mg/dL CERNER CH Bilirubin, total 0.3 0.1 - 1.2 mg/dL CERNER CH Protein, pl 7.7 6.5 - 8.5 g/dL CERNER CH Albumin 4.6 3.5 - 5.0 g/dL CERNER CH Alk phos 89 40 - 130 Units/L CERNER CH ALT 14 7 - 45 Units/L CERNER CH AST 22 10 - 45 Units/L CERNER CH Blood 04/10/2024 9:17 AM SPUDDER 04/10/2024 9:34 AM SPUDDER Melissa Garrison MD LAB BLOOD ORDERAB LES Final Result [facility] [address] [address] Department [place] [address] * POCT rapid strep A (04/09/2024 9:13 AM SPUDDER) Pathologist [facility] Rapid Strep A, POC Negative Negative Swab 04/09/2024 9:13 AM SPUDDER Melissa Garrison MD POINT OF CARE GILMA T ORDERABLES Final Result * TRANSTHORACIC ECHO (TTE) COMPLETE W DOPPLER/CF WO CONTRAST (04/03/2024 2:16 PM SPUDDER) Pathologist [facility] LV EF 65 % CONS SCIMAGE Anatomical Region Laterality Modality Ultrasound 04/03/2024 1:47 PM SPUDDER Narrative 04/03/2024 5:02 PM SPUDDER [facility] Cardiology [address], [place] [address] [address] [facility] [address], [place] [address] P:[phone] P:[phone] Echocardiographic Report Patient Name: KIZZY PETERS : 1970 Study Date: 04/03/2024 1:47:03 PM Gender: F Tech: Location: [facility] Provider: YENNI REYES Height(Cm): 165 BSA: 1.58 Weight(Kg): 54.4 Heart Rate: 69 BP: 128 / 95 Quality: Good Order Provider: YENNI REYES PROCEDURES: Echocardiographic Report: Transthoracic echocardiogram with complete 2D, M-Mode, and color Doppler examination. INDICATIONS: MV Annuloplasty and Z95.0 Presence of cardiac pacemaker. MEASUREMENTS: 2D/MM Value Range Doppler Value Range EF Mod BP 66 % [ 54 - 74 ] AV Mean PG 5 mmHg EF Teich MM 50 % [ 54 - 74 ] AV Peak Matt 1.44 m/s [ 1.00 - 1.70 ] Estimated EF 65 % AV Peak PG 8 mmHg LVIDd 2D 4.62 cm [ 3.80 - 5.20 ] AV VTI 28.39 cm LVIDd MM 5.08 cm [ 3.80 - 5.20 ] LVOT Peak Matt 1.17 m/s [ 0.70 - 1.10 ] LVIDs 2D 3.30 cm [ 2.20 - 3.50 ] LVOT VTI 26.61 cm LVIDs MM 3.78 cm [ 2.20 - 3.50 ] MV E Peak Matt 1.23 m/s [ 0.60 - 1.30 ] LVPWd MM 1.24 cm [ 0.60 - 0.90 ] MV A Peak Matt 1.24 m/s [ 1.00 - 1.20 ] IVSd 2D 0.74 cm [ 0.60 - 0.90 ] MV Mean PG 4 mmHg [ 0 - 5 ] IVSd MM 0.73 cm [ 0.60 - 0.90 ] MV PHT 71 msec [ 20 - 100 ] LA Dimension MM 3.25 cm [ 2.70 - 3.80 ] MVA PHT 3.11 cm2 [ 2.00 - 4.00 ] AoR Diam MM 3.65 cm [ 2.70 - 3.70 ] MV Decel Time 250 msec [ 104 - 258 ] LA Volume Index 28 cc/m2 [ 16 - 34 ] PV Peak Matt 0.81 m/s [ 0.40 - 0.80 ] TR Peak Matt 1.80 m/s [ 1.00 - 2.80 ] TR Peak PG 13 mmHg Lateral E` 0.08 m/s [ 0.10 - 0.15 ] E` 0.05 m/s E/E` 15 2D/MM Value Range Doppler Value Range - FINDINGS: Interpretation Site: Exam was interpreted at [facility]. Left Ventricle: Normal left ventricular systolic function. No focal wall motion abnormalities. Mild concentric left ventricular hypertrophy. Mild enlargement of left ventricle cavity. Impaired diastolic relaxation Grade I. Ejection fraction is measured at 66 %. Ejection Fraction is visually estimated to be 65 %. Right Ventricle: Normal right ventricular size. Normal right ventricular systolic function. Linear artifact in right ventricle suggestive of catheter(s), pacemaker lead(s), or ICD lead(s). Left Atrium: The left atrium is normal in size. Right Atrium: The right atrium is normal in size. Atrial Septum: Normal atrial septum. Mitral Valve: Mitral valve leaflets appear severely thickened especially involving the posterior leaflet. Cannot exclude vegetation. Annular region thickened with prior annuloplasty. Mild mitral valve regurgitation. There is no hemodynamically significant mitral stenosis by Doppler. Mean gradient of 4.00 mmHg. Valve area of 3.1 cm2. Echogenic structure is seen on the posterior leaflet of the mitral valve concerning for vegetation. Aortic Valve: No evidence of hemodynamically significant aortic stenosis by Doppler. Trileaflet aortic valve. Trace aortic valve regurgitation. Tricuspid Valve: Normal appearance of the tricuspid valve. Normal right ventricular systolic pressure. Estimated peak RVSP is 20 mmHg. Mild tricuspid regurgitation. Pulmonic Valve: Normal appearance of the pulmonic valve. No pulmonic stenosis. Mild pulmonic regurgitation. Pericardium: Normal pericardium with no significant pericardial effusion. Aorta: Sinus of Valsalva is mildly dilated. Sinus of Valsalva 3.9 cm. IVC: Normal size and normal respiratory collapse consistent with normal right atrial pressure (<5 mmHg). CONCLUSIONS: Normal left ventricular systolic function. No focal wall motion abnormalities. Mild concentric left ventricular hypertrophy. Mild enlargement of left ventricle cavity. Impaired diastolic relaxation Grade I. Ejection fraction is measured at 66 %. Ejection Fraction is visually estimated to be 65 %. Normal right ventricular size. Normal right ventricular systolic function. Linear artifact in right ventricle suggestive of catheter(s), pacemaker lead(s), or ICD lead(s). Mitral valve leaflets appear severely thickened especially involving the posterior leaflet. Cannot exclude vegetation. Annular region thickened with prior annuloplasty. Mild mitral valve regurgitation. There is no hemodynamically significant mitral stenosis by Doppler. Mean gradient of 4.00 mmHg. Valve area of 3.1 cm2. Echogenic structure is seen on the posterior leaflet of the mitral valve concerning for vegetation. Mild tricuspid regurgitation. Mild pulmonic regurgitation. Normal sinus rhythm. Electronically Signed By: Greyson Daniel MD 04/03/2024 5:01:58 PM SPUDDER Procedure Note Greyson Daniel MD - 04/03/2024 [facility] Medical Group Cardiology [address] [facility] [address] [id number] [address] [facility] [address] [address] P:[phone] P:[phone] Echocardiographic Report Patient Name: KIZZY PETERS : 1970 Study Date: 04/03/2024 1:47:03 PM Gender: F Tech: Location: [facility] Provider: YENNI REYES Height(Cm): 165 BSA: 1.58 Weight(Kg): 54.4 Heart Rate: 69 BP: 128 / 95 Quality: Good Order Provider: YENNI REYES PROCEDURES: Echocardiographic Report: Transthoracic echocardiogram with complete 2D, M-Mode, and color Dopplerexamination. INDICATIONS: MV Annuloplasty and Z95.0 Presence of cardiac pacemaker. MEASUREMENTS: 2D/MM Value Range Doppler ValueRange EF Mod BP 66 % [ 54 - 74 ] AV Mean PG 5mmHg EF Teich MM 50 % [ 54 - 74 ] AV Peak Matt 1.44m/s [ 1.00 - 1.70 ] Estimated EF 65 % AV Peak PG 8mmHg LVIDd 2D 4.62 cm [ 3.80 - 5.20 ] AV VTI 28.39cm LVIDd MM 5.08 cm [ 3.80 - 5.20 ] LVOT Peak Matt 1.17m/s [ 0.70 - 1.10 ] LVIDs 2D 3.30 cm [ 2.20 - 3.50 ] LVOT VTI 26.61cm LVIDs MM 3.78 cm [ 2.20 - 3.50 ] MV E Peak Matt 1.23m/s [ 0.60 - 1.30 ] LVPWd MM 1.24 cm [ 0.60 - 0.90 ] MV A Peak Matt 1.24m/s [ 1.00 - 1.20 ] IVSd 2D 0.74 cm [ 0.60 - 0.90 ] MV Mean PG 4 mmHg[ 0 - 5 ] IVSd MM 0.73 cm [ 0.60 - 0.90 ] MV PHT 71 msec[ 20 - 100 ] LA Dimension MM 3.25 cm [ 2.70 - 3.80 ] MVA PHT 3.11cm2 [ 2.00 - 4.00 ] AoR Diam MM 3.65 cm [ 2.70 - 3.70 ] MV Decel Time 250msec [ 104 - 258 ] LA Volume Index 28 cc/m2 [ 16 - 34 ] PV Peak Matt 0.81m/s [ 0.40 - 0.80 ] TR Peak Matt 1.80 m/s [ 1.00 - 2.80 ] TR Peak PG 13 mmHg Lateral E` 0.08 m/s [ 0.10 - 0.15 ] E` 0.05 m/s E/E` 15 2D/MM Value Range Doppler ValueRange - FINDINGS: Interpretation Site: Exam was interpreted at [facility]. Left Ventricle: Normal left ventricular systolic function. No focal wall motionabnormalities. Mild concentric left ventricular hypertrophy. Mild enlargement of leftventricle cavity. Impaired diastolic relaxation Grade I. Ejection fraction is measured at 66%. Ejection Fraction is visually estimated to be 65 %. Right Ventricle: Normal right ventricular size. Normal right ventricular systolic function.Linear artifact in right ventricle suggestive of catheter(s), pacemaker lead(s),or ICD lead(s). Left Atrium: The left atrium is normal in size. Right Atrium: The right atrium is normal in size. Atrial Septum: Normal atrial septum. Mitral Valve: Mitral valve leaflets appear severely thickened especially involving theposterior leaflet. Cannot exclude vegetation. Annular region thickened with priorannuloplasty. Mild mitral valve regurgitation. There is no hemodynamically significantmitral stenosis by Doppler. Mean gradient of 4.00 mmHg. Valve area of 3.1 cm2. Echogenicstructure is seen on the posterior leaflet of the mitral valve concerning forvegetation. Aortic Valve: No evidence of hemodynamically significant aortic stenosis by Doppler.Trileaflet aortic valve. Trace aortic valve regurgitation. Tricuspid Valve: Normal appearance of the tricuspid valve. Normal right ventricularsystolic pressure. Estimated peak RVSP is 20 mmHg. Mild tricuspid regurgitation. Pulmonic Valve: Normal appearance of the pulmonic valve. No pulmonic stenosis. Mildpulmonic regurgitation. Pericardium: Normal pericardium with no significant pericardial effusion. Aorta: Sinus of Valsalva is mildly dilated. Sinus of Valsalva 3.9 cm. IVC: Normal size and normal respiratory collapse consistent with normal rightatrial pressure (<5 mmHg). CONCLUSIONS: Normal left ventricular systolic function. No focal wall motionabnormalities. Mild concentric left ventricular hypertrophy. Mild enlargement of leftventricle cavity. Impaired diastolic relaxation Grade I. Ejection fraction is measured at 66%. Ejection Fraction is visually estimated to be 65 %. Normal right ventricular size. Normal right ventricular systolic function.Linear artifact in right ventricle suggestive of catheter(s), pacemaker lead(s),or ICD lead(s). Mitral valve leaflets appear severely thickened especially involving theposterior leaflet. Cannot exclude vegetation. Annular region thickened with priorannuloplasty. Mild mitral valve regurgitation. There is no hemodynamically significantmitral stenosis by Doppler. Mean gradient of 4.00 mmHg. Valve area of 3.1 cm2. Echogenicstructure is seen on the posterior leaflet of the mitral valve concerning forvegetation. Mild tricuspid regurgitation. Mild pulmonic regurgitation. Normal sinus rhythm. Electronically Signed By: Greyson Daniel MD 04/03/2024 5:01:58 PM SPUDDER Yenni Reyes MD CV ECHO PROCEDURES F inal Result * DEVICE CHECK - IN OFFICE (03/14/2024 2:50 PM SPUDDER) Anatomical Region Laterality Modality Other Narrative 03/16/2024 7:43 AM SPUDDER [employer] MRI 2272 Dual Pacemaker. Hx: SSS, CHB. DOI: 12/07/2023 [facility]. Supervising MD: Dr Looney. Left pectoral incision well approximated. No redness, drainage, or edema noted. Office DDD Pacemaker interrogation demonstrated appropriate device function. Appropriate lead measurements noted. Battery function: 3.01 V, 7.4-9.2 years remaining battery life to ELAN. Presenting rhythm- AP-VS. Underlying rhythm- SR 60 bpm. AP- 75 %, HEEL SEATER- 11%. 452 Atrial high rate episodes recorded, [facility] oversensing of the ventricle , longest duration 3 minutes noted. No Ventricular high rate episodes noted. Medications; ASA 81 mg. Atrial amplitude decreased to 1.5 V. Atrial auto sensitivity turned off and set to 0.5 mV. See scanned report. Office pacemaker f/u scheduled 04/10/2025. Pasha remote f/u 06/19/2024. Temi Ferreira, ISMAEL Yenni Reyes MD CV CARDIAC SERVICES PROCEDURES Final Result * MAMMOGRAPHY (06/09/2023) Historical Provider HEALTH MAINTENANCE Final Result * COLONOSCOPY (2019) Scribed Colonoscopy Normal Historical Provider HEALTH MAINTENANCE Final Result from Last 3 Months or Most Recently Relevant to Health Maintenance Insurance [facility] [id number] [facility] [id number] [facility] [id number] Advance Directives For more information, please contact: [phone] * Full Code (Latest Code Status on File) Date Activated Date Inactivated Comments 12/23/2023 5:06 AM 12/24/2023 6:27 PM * Full Code Date Activated Date Inactivated Comments 12/01/2023 1:47 PM 12/09/2023 7:30 PM * Full Code Date Activated Date Inactivated Comments 11/15/2023 10:17 AM 11/15/2023 4:10 PM Care Teams Quality Tech Relationship Specialty Start Date End Date Melissa Garrison MD PCP - General Family Medicine 12/17/21 Abundio Kaur MD [address] [place] [id number] Consulting Physician General Surgery 04/06/22 [place] [address] [place] [address] Surgeon Cardiothoracic Surgery 12/09/23
--- OUTSIDE RECORDS SUMMARY | 2024-06-11 10:35 | XMS_ITS | Referral Summary ---
Author Organization [facility] Address [address] [place] [address] Phone Care Team Providers Care Gypsum Calciner Name Role Phone Melissa Garrsion MD Primary Care Pro vider Abundio Kaur MD Unavailable [phone] Rob Bingham MD Unavailable [phone] Encounters Date Type Department Care Team Description 06/06/2024 2:00 PM CDT Office Visit [facility] G[facility]ology at [address] [place] [phone] Elyssa Weeks NP Multiple duodenal ulcers (Primary Dx); Reactive gastropathy 05/29/2024 Results Follow-Up [facility] at [address] [place] [phone] Carolyn Dillard MA 05/10/2024 E-Visit [facility] Primary Care at [address] [place] [phone] Melissa Garrison MD Your Medications 04/16/2024 12:15 PM QUALITY ENGINEERING MANAGER Office Visit [facility] Cardiology [address] [address] [address] [place] [address] Yenni Reyes MD H/O mitral valve repair (Primary Dx); Cardiac pacemaker in situ; Atrial tachycardia; Family history of early CAD 04/10/2024 Results Follow-Up [facility] at [address] [place] [phone] Melissa Garrison MD Pre-diabetes (Primary Dx); Dyslipidemia 04/10/2024 9:15 AM QUALITY ENGINEERING MANAGER Lab [facility] [address] [place] [address] Encounter for screening for other viral diseases; Annual physical exam; Family history of diabetes mellitus 04/10/2024 10:00 AM QUALITY ENGINEERING MANAGER Office Visit [facility] Surgery [id number] [place] [address] [address] [place] [address] Meli Garrison NP S/P MVR (mitral valve repair) (Primary Dx) 04/09/2024 9:30 AM QUALITY ENGINEERING MANAGER Office Visit [facility] at [address] [place] [phone] Melissa Garrison MD Annual physical exam (Primary Dx); Encounter for screening for other viral diseases; Family history of diabetes mellitus; Pharyngitis, unspecified etiology; GONZALO (generalized anxiety disorder); H/O mitral valve repair; Cardiac pacemaker in situ; Atrial tachycardia; Chronic gastritis without bleeding, unspecified gastritis type 04/03/2024 Telephone [facility] at [address] [place] [phone] Melissa Garrison MD 04/03/2024 3:00 PM QUALITY ENGINEERING MANAGER Ancillary Procedure [facility] [address] [place] [phone] Cardiac pacemaker in situ; H/O mitral valve repair 03/30/2024 Telephone [facility] [address] [place] [address] [address] [place] [address] Zoya Mahoney MD 03/14/2024 Orders Only [facility] [address] [facility] [address] [place] [phone] Yenni Reyes MD Cardiac pacemaker in situ (Primary Dx); CHB (complete heart block) (HCC); Sick sinus syndrome (HCC) 03/14/2024 3:30 PM QUALITY ENGINEERING MANAGER Ancillary Procedure [facility] [address] [place] [address] Cardiac pacemaker in situ (Primary Dx); SSS (sick sinus syndrome) (HCC); Complete heart block (HCC) from Last 3 Months Allergies No known active allergies Medications multivitamin-C m-twid-djvzyyz s tablet Take 1 tablet by mouth [...] tablets,dose pack tablets in a dose packIndication s:COVROMAN Take 300 mg nirmatrelvir (2 x 150 [...] 03/08/2024 Assessment & Plan (04/09/2024 9:12 AM QUALITY ENGINEERING MANAGER): Persistent gastritis on repeat EGD, but duodenal [...] 01/02/2024 Assessment & Plan (04/09/2024 9:09 AM QUALITY ENGINEERING MANAGER): Following with cardiology, reviewed last note Atrial tachycardia 01/02/2024 Assessment & Plan (04/09/2024 9:10 AM QUALITY ENGINEERING MANAGER): Following with cardiology, reviewed last note, didn't add beta-tory 2/2 low blood pressure Cardiac pacemaker in situ 12/08/2023 Overview (12/12/2023): [employer] MRI 2272 Dual Pacemaker. Hx: SSS, CHB. DOI: 12/07/2023 Munfakh. Ortiz. [facility]. Assessment & Plan (04/09/2024 9:10 AM QUALITY ENGINEERING MANAGER): Following with cardiology, reviewed last note Assessment & Plan (12/27/2023 4:46 PM QUALITY ENGINEERING MANAGER): For complete heartblock Following with cardiology Sick [...] management Assessment & Plan (04/04/2023 9:00 AM QUALITY ENGINEERING MANAGER): Following with cardiology, reviewed note Upcoming ECHO Family history of early CAD 03/28/2023 Assessment & Plan (04/04/2023 8:59 AM QUALITY ENGINEERING MANAGER): Following with cardiology, reviewed note Annual physical exam 12/17/2021 Assessment & Plan (04/09/2024 9:10 AM QUALITY ENGINEERING MANAGER): Reviewed PMH & FH PHQ reviewed Reviewed medications and supplements HCM: orders placed as needed Assessment & Plan (04/04/2023 8:52 AM QUALITY ENGINEERING MANAGER): Reviewed PMH & FH PHQ reviewed Reviewed [...] 12/17/2021 Assessment & Plan (04/09/2024 9:10 AM QUALITY ENGINEERING MANAGER): controlled Continue zoloft Assessment & Plan (09/13/2023 6:15 AM CDT): Chronic, uncontrolled on medication Increase dose of sertraline from 50 mg to 100 mg daily Encouraged follow-up with PCP Assessment & Plan (04/04/2023 8:57 AM QUALITY ENGINEERING MANAGER): Uncontrolled Just restarted zoloft Assessment & Plan (12/17/2021 11:01 AM CDT): Stable Continue zoloft Resolved Problems Problem Noted Date Diagnosed Date Resolved Date Acute GI bleeding 12/23/2023 04/09/2024 Assessment & Plan (12/27/2023 4:18 PM QUALITY ENGINEERING MANAGER): Reviewed discharge summary Continue protonix and iron supplement Encouraged to contact GI to schedule repeat EGD in 2m Acute mitral regurgitation 12/01/2023 1 03/03/2023 Mitral valve insufficiency 10/06/2023 1 03/03/2023 Assessment & Plan (12/27/2023 4:46 PM QUALITY ENGINEERING MANAGER): S/p repair On potassium wasting diuretic therapy 09/13/2023 04/09/2024 Assessment & Plan (09/13/2023 6:14 AM CDT): Continued on furosemide, will monitor electrolytes and renal function Acute pulmonary edema 09/13/20232024 Assessment & Plan (09/13/2023 6:17 AM CDT): New diagnosis Reviewed ER notes and test results from 09/11/2023 Continued on furosemide Ordered labs Encouraged to follow-up with structural fitter Referral made to Cardiothoracic surgeon Advised ER evaluation if new or worsening symptoms Immunizations Immunization Administration Dates Next Due Influenza, Unspecified 11/23/2023,2022,11/16/2021,11/12/2019, 9,11/15/2016 Tdap 01/04/2020,02/21/2016 ZOSTER Recombinant 03/04/2020,01/04/2020 Social History Tobacco Use Types Packs/Day Years Used Date Smoking Tobacco: Never Smokeless Tobacco: Never Tobacco Cessation:Counseling Given: Not Answered [facility] Utilities Answer Date Recorded In the past 12 months has [employer], gas, oil, or water company threatened to [...] often do you attend chur ch or tenriism services? Never 12/05/2023 Do you belong to any clubs o r organizations such as mandaen groups, unions, fraternal or athletic groups, or [...] any time in the past [address] [facility], were you homeless or living in a skilled nursing (including now)? No 12/05/2023 Personal Safety Answer [...] on file Sexual Orientation Not on file Last Filed Vital Signs Vital Sign Reading Time Taken Comments Blood Pressure 131/83 06/06/2024 1:23 PM CDT Pulse 72 06/06/2024 1:23 PM CDT Temperature 37.3 C (99.1 F) 04/09/2024 9:00 AM QUALITY ENGINEERING MANAGER Respiratory Rate 14 04/10/2024 10:11 AM QUALITY ENGINEERING MANAGER Oxygen Saturation 100% 06/06/2024 1:23 PM CDT Inhaled Oxygen Concentration - - Weight 58.2 kg (128 lb 6.4 oz) 06/06/2024 1:23 P M CDT Height 165.1 cm (5' 5 ) 06/06/2024 1:23 PM CDT Body Mass Index 21.37 06/06/2024 1:23 PM CDT Plan of Treatment Not on file Medical Devices Implanted Type Area Affirmative Action Officer Device Identifier Shelf Expiration Date Model / Serial / Lot [employer] Tendril Sts 6fr 58cm Is-1 Connector Active Fixation Bipolar Soft /58 - [id number] - [id number] Implanted:Qty: 1 on 12/07/2023 by Rob Bingham MD at [facility] Lead Right: Ventricle [employer] [id number] 09/13/2026 2088TC/5 8 / [id number] / [employer] Tendril Sts 6fr 52cm Is-1 Connector Active Fixation Bipolar Soft /52 - [id number] - [id number] Implanted:Qty: 1 on 12/07/2023 by Rob Bingham MD at [facility] Lead Right: Heart [employer] [id number] 09/13/2026 2088TC/5 2 / [id number] / Description:RA LEAD [employer] Assurity Mri [id number] 2 Chamber Is-1 Connector Thk6mm Pacemaker Gp2017 - [id number] - [id number] Implanted:Qty: 1 on 12/07/2023 by Rob Bingham MD at [facility] Pacemaker Right: Chest [employer] [id number] 04/13/2025 [id number] / [id number] / [employer] Device Closure Vascade Od5 Fr Femoral Artery [id number] - [id number] Implanted:Qty: 1 on 11/15/2023 by Yenni Reyes MD at [facility] [employer] 06/22/2025 [id number] / / [id number] [employer] Misty-Edw ards Physio Ii 32mm Abreu Sew Mitral Ring [id number] - [id number] - [id number] Implanted:Qty: 1 on 12/01/2023 by Rob Bingham MD at [facility] N/A: Heart [employer] [id number] 01/19/2028 [id number] / [id number] / Procedures Procedure Name Priority Date/Time Associated Diagnosis Comments EGFR Routine 04/10/2024 9:17 AM QUALITY ENGINEERING MANAGER Annual physical exam DIFFERENTIAL AUTO Routine 04/10/2024 9:1 7 AM QUALITY ENGINEERING MANAGER Annual physical exam HEMOGLOBIN A1C Routine 04/10/2024 9:17 AM QUALITY ENGINEERING MANAGER Family history of diabetes mellitus Annual physical exam CBC WITH AUTO DIFFERENTIAL Routine 04/10/2024 9:17 AM QUALITY ENGINEERING MANAGER Annual physical exam COMPREHENSIVE METABOLIC PANEL Routine 04/10/2024 9:17 AM QUALITY ENGINEERING MANAGER Annual physical exam THYROID FUNCTION CASCADE Routine 04/10/2024 9:17 AM QUALITY ENGINEERING MANAGER Annual physical exam LIPID PANEL Routine 04/10/2024 9:17 AM QUALITY ENGINEERING MANAGER Annual physical exam HEPATITIS C ANTIBODY Routine 04/10/2024 9:17 AM QUALITY ENGINEERING MANAGER Encounter for screening for other viral diseases HEPATITIS B SURFACE ANTIGEN Routine 04/10/2024 9:17 AM QUALITY ENGINEERING MANAGER Encounter for screening for other viral diseases HEPATITIS B CORE ANTIBODY, TOTAL Routine 04/10/2024 9:17 AM QUALITY ENGINEERING MANAGER Encounter for screening for other viral diseases HEPATITIS B SURFACE ANTIBODY (IMMUNE STATUS) Routine 04/10/2024 9:17 AM QUALITY ENGINEERING MANAGER Encounter for screening for other viral diseases POCT RAPID STREP Routine 04/09/2024 9:13 AM QUALITY ENGINEERING MANAGER Pharyngitis, unspecified etiology TRANSTHORACIC ECHO (TTE) COMPLETE W DOPPLER/CF WO CONTRAST Routine 04/03/2024 2:16 PM QUALITY ENGINEERING MANAGER Cardiac pacemaker in situ H/O mitral valve repair DEVICE CHECK - IN OFFICE Routine 03/14/2024 2:50 PM QUALITY ENGINEERING MANAGER SSS (sick sinus syndrome) (HCC) Complete heart block (HCC) MAMMOGRAPHY Routine 06/09/2023 COLONOSCOPY Routine 2019 from Last 3 Months or Most Recently Relevant to Health Maintenance Results * eGFR (04/10/2024 9:17 AM QUALITY ENGINEERING MANAGER) eGFR >90 >=60 mL/min/1. 73 m2 Comment: [...] last reviewed 2020. Blood 04/10/2024 9:17 AM QUALITY ENGINEERING MANAGER 04/10/2024 9:34 AM QUALITY ENGINEERING MANAGER us Melissa Garrison MD LAB BLOOD ORDERAB LES Final Result ANITA ALICIA [address] Department [place] [address] * (ABNORMAL) Differential, auto (04/10/2024 9:17 AM QUALITY ENGINEERING MANAGER) Neutrophil abs 1.4(L) 1.5 - 6.5 K/cumm Imm gran abs 0.0 0.0 - 0.1 K/cumm ANITA ALICIA Lymphocyte abs 1.1 0.8 - 3.3 K/cumm [facility] Monocyte abs 0.5 0.2 - 0.8 K/cumm [facility] Eosinophil abs 0.1 0.0 - 0.5 K/cumm [facility] Basophil abs 0.1 0.0 - 0.1 K/cumm [facility] Neutrophil pct 43.9 % [facility] Comment: Interpretive Data Percent cell count reference ranges are not reported, since discordance with absolute values may lead to misinterpretation of CBC data. Current Interpretive Data was last revised on 2017. Imm gran pct 0.3 % [facility] Comment: Interpretive Data Percent cell count reference ranges are not reported, since discordance with absolute values may lead to misinterpretation of CBC data. Current Interpretive Data was last revised on 2017. Lymphocyte pct 34.3 % [facility] Comment: Interpretive Data Percent cell count reference ranges are not reported, since discordance with absolute values may lead to misinterpretation of CBC data. Current Interpretive Data was last revised on 2017. Monocyte pct 16.4 % [facility] Comment: Interpretive Data Percent cell count reference ranges are not reported, since discordance with absolute values may lead to misinterpretation of CBC data. Current Interpretive Data was last revised on 2017. Eosinophil pct 2.7 % [facility] Comment: Interpretive Data Percent cell count reference ranges are not reported, since discordance with absolute values may lead to misinterpretation of CBC data. Current Interpretive Data was last revised on 2017. Basophil pct 2.4 % [facility] Comment: Interpretive Data Percent cell count reference ranges are not reported, since discordance with absolute values may lead to misinterpretation of CBC data. Current Interpretive Data was last revised on 2017. Blood 04/10/2024 9:17 AM QUALITY ENGINEERING MANAGER 04/10/2024 9:34 AM QUALITY ENGINEERING MANAGER us Melissa Garrison MD LAB BLOOD ORDERAB LES Final Result ANITA [address] Department [place] [address] * Thyroid Function [place] (04/10/2024 9:17 AM QUALITY ENGINEERING MANAGER) [facility] TSH 1.51 0.30 - 4.20 mcIUnit/mL Blood 04/10/2024 9:17 AM QUALITY ENGINEERING MANAGER 04/10/2024 9:34 AM QUALITY ENGINEERING MANAGER Melissa Garrison MD LAB BLOOD ORDERAB LES Final Result ANITA [address] [place] [address] * (ABNORMAL) CBC with auto differential (04/10/2024 9:17 AM QUALITY ENGINEERING MANAGER) [facility] WBC 3.3(L) 3.8 - 9.9 K/cumm Hgb 12.1 11.9 - 15.5 g/dL [facility] Hct 37.2 35.6 - 45.5 % [facility] Plt 231 150 - 400 K/cumm [facility] MPV 10.4 9.1 - 12.3 fL [facility] RBC 4.39 3.90 - 5.20 M/cumm [facility] MCV 84.7 81.3 - 96.4 fL [facility] MCH 27.6 27.1 - 33.3 pg [facility] MCHC 32.5 32.3 - 35.7 g/dL [facility] RDW CV 16.8(H) 11.1 - 14.9 % [facility] CH RDW SD 52.7(H) 35.7 - 48.1 fL [facility] NRBC abs 0.00 0.00 - 0.01 K/cumm [facility] Blood 04/10/2024 9:17 AM QUALITY ENGINEERING MANAGER 04/10/2024 9:34 AM QUALITY ENGINEERING MANAGER Melissa Garrison MD LAB BLOOD ORDERAB LES Final Result ANITA [address] [place], [place] [id number] * Hepatitis C antibody Blood (04/10/2024 9:17 AM QUALITY ENGINEERING MANAGER) Hep C Ab Nonreactive Nonreactive Comment: Interpretive [...] revised on 2019. Blood 04/10/2024 9:17 AM QUALITY ENGINEERING MANAGER 04/10/2024 9:34 AM QUALITY ENGINEERING MANAGER Melissa Garrison MD LAB MICROBIOLOGY - GENERAL ORDERABLES Final Result Performing Organization Address City/[facility]/ZIP Co de Phone Number ANITA ALICIA [address] [facility] [employer] [place] [address] * Hepatitis B core antibody, total Blood (04/10/2024 9:17 AM QUALITY ENGINEERING MANAGER) Hep B core IgG/IgM Nonreactive Nonreactive Comment:Testing performed by : [facility], [address] [place]., [address] Blood 04/10/2024 9:17 AM QUALITY ENGINEERING MANAGER 04/10/2024 2:17 PM QUALITY ENGINEERING MANAGER Melissa Garrison MD LAB MICROBIOLOGY - GENERAL ORDERABLES Final Result Performing Organization Address City/[facility]/ZIP Co de Phone Number ANITA [address] [employer] [place] [address] * Hepatitis B surface antibody (immune status) Blood (04/10/2024 9:17 AM QUALITY ENGINEERING MANAGER) HBsAb (immune status) Nonreactive Comment: Interpretive Data [...] revised on 19. Blood 04/10/2024 9:17 AM QUALITY ENGINEERING MANAGER 04/10/2024 9:34 AM QUALITY ENGINEERING MANAGER Result Pending [facility] us Melissa Garrison MD LAB MICROBIOLOGY - GENERAL ORDERABLES Final Result Performing Organization Address [facility] Phone Number ANITA [phone] [employer] [place] [address] * Hepatitis B Surface Antigen Blood (04/10/2024 9:17 AM QUALITY ENGINEERING MANAGER) HepBsAg Nonreactive Nonreactive Blood 04/10/2024 9:17 AM QUALITY ENGINEERING MANAGER 04/10/2024 9:34 AM QUALITY ENGINEERING MANAGER Result [facility] Melissa Garrison MD LAB MICROBIOLOGY - GENERAL ORDERABLES Final Result Performing Organization Address [facility] Phone Number ANITA [id number] [facility] [employer] [place] [address] * (ABNORMAL) Hemoglobin A1c (04/10/2024 9:17 AM QUALITY ENGINEERING MANAGER) Hgb A1C 6.0(H) 4.0 - 5.6 % Estimated Average Glucose 126 mg/dL ANITA ALICIA Comment: The ADA recommends reporting an estimated Average Glucose (eAG) with all Hemoglobin A1c results using the equation derived from a study of 507 normal and diabetic adults. Minority populations were underrepresented and children were not included. (Diabetes Care 31:4962-7916, 2008). The eAG is not equivalent to a fasting glucose. Blood 04/10/2024 9:17 AM QUALITY ENGINEERING MANAGER 04/10/2024 9:34 AM QUALITY ENGINEERING MANAGER Result Heydi Garrison MD LAB BLOOD ORDERAB LES Final Result Performing Organization Address [facility] de Phone Number ANITA [address] [facility] [employer] [place] [address] * (ABNORMAL) Lipid panel (04/10/2024 9:17 AM QUALITY ENGINEERING MANAGER) [facility] Signature Cholesterol 252(H) 30 - 199 mg/dL Comment: [...] mg/dL High: >160 mg/dL Calculated using the Renan LDL-C estimating equation. This equation was implemented on 2023. Prior to this date LDL-C was estimated using the Friedewald equation. Literature References: 1. Expert Panel on Integrated Guidelines for Cardiovascular Health and Risk Reduction in Children and Adolescents. Pediatrics 2011;128:S213 2. NCEP Expert Panel. Circulation 2004;110:227 3. Renan Perez et al. GARRY Cardiol. 2020 June 14;5(5):540-548. doi: 10.1001/jamacardio.2020.0013 Current Interpretive Data was last revised on 2023. Non-HDL Cholesterol 126 mg/dL [facility] Comment: Interpretive Data Ages < or = [...] 2 [facility] Blood 04/10/2024 9:17 AM QUALITY ENGINEERING MANAGER 04/10/2024 9:34 AM QUALITY ENGINEERING MANAGER Melissa Garrison MD LAB BLOOD ORDERAB LES Final Result ANITA [address] Department [place] [address] * Comprehensive metabolic panel (04/10/2024 9:17 AM QUALITY ENGINEERING MANAGER) Sodium 137 135 - 145 mmol/L Potassium, pl 4.3 3.3 - 4.9 mmol/L [facility] Chloride 99 97 - 110 mmol/L [facility] CO2 26 22 - 32 mmol/L [facility] Anion gap 12 2 - 15 mmol/L [facility] BUN 14 6 - 25 mg/dL [facility] Creatinine 0.69 0.60 - 1.10 mg/dL [facility] Glucose 86 70 - 199 mg/dL [facility] Comment: Interpretive Data Fasting glucose >/= 126 [...] Calcium 9.9 8.5 - 10.3 mg/dL [facility] Bilirubin, total 0.3 0.1 - 1.2 mg/dL [facility] Protein, pl 7.7 6.5 - 8.5 g/dL [facility] Albumin 4.6 3.5 - 5.0 g/dL [facility] Alk phos 89 40 - 130 Units/L [facility] ALT 14 7 - 45 Units/L [facility] AST 22 10 - 45 Units/L [facility] Blood 04/10/2024 9:17 AM QUALITY ENGINEERING MANAGER 04/10/2024 9:34 AM QUALITY ENGINEERING MANAGER Melissa Garrison MD LAB BLOOD ORDERAB LES Final Result [facility] [address] Department of Laboratories [place], [place] [id number] * POCT rapid strep A (04/09/2024 9:13 AM QUALITY ENGINEERING MANAGER) [facility] Rapid Strep A, POC Negative Negative Swab 04/09/2024 9:13 AM QUALITY ENGINEERING MANAGER Melissa Garrison MD POINT OF CARE GILMA T ORDERABLES Final Result * TRANSTHORACIC ECHO (TTE) COMPLETE W DOPPLER/CF WO CONTRAST (04/03/2024 2:16 PM QUALITY ENGINEERING MANAGER) LV EF 65 % CONS SCIMAGE Anatomical Region Laterality Modality Ultrasound 04/03/2024 1:47 PM QUALITY ENGINEERING MANAGER Narrative 04/03/2024 5:02 PM QUALITY ENGINEERING MANAGER [facility] [address], [place] [address] [address], [place] [address] P:[phone] P:[phone] Echocardiographic Report Patient Name: KIZZY PETERS : 1970 Study Date: 04/03/2024 1:47:03 PM Gender: F Tech: Location: [facility] Provider: YENNI REYES Height(Cm): 165 BSA: 1.58 [...] FINDINGS: Interpretation Site: Exam was interpreted at [facility]. Left Ventricle: Normal left ventricular systolic function. [...] By: Greyson Daniel MD 04/03/2024 5:01:58 PM QUALITY ENGINEERING MANAGER Procedure Note Greyson Daniel MD - 04/03/2024 [facility] [address] [facility] [address] [place] [address] [address] [facility] [address] [place] [address] P:[phone] P:[phone] Echocardiographic Report Patient Name: KIZZY PETERS : 1970 Study Date: 04/03/2024 1:47:03 PM Gender: F Tech: Location: MD Ref Provider: YENNI REYES Height(Cm): 165 BSA: 1.58 [...] FINDINGS: Interpretation Site: Exam was interpreted at [facility]. Left Ventricle: Normal left ventricular systolic function. [...] By: Greyson Daniel MD 04/03/2024 5:01:58 PM QUALITY ENGINEERING MANAGER Yenni Reyes MD CV ECHO PROCEDURES F inal Result * DEVICE CHECK - IN OFFICE (03/14/2024 2:50 PM QUALITY ENGINEERING MANAGER) Anatomical Region Laterality Modality Other Narrative 03/16/2024 7:43 AM QUALITY ENGINEERING MANAGER [place] [facility] 2272 Dual Pacemaker. Hx: SSS, CHB. DOI: 12/07/2023 Munfakh. Ortiz. [facility]. Supervising MD: Dr Looney. Left pectoral incision well approximated. No redness, drainage, or edema noted. Office DDD Pacemaker interrogation demonstrated appropriate device function. Appropriate lead measurements noted. Battery function: 3.01 V, 7.4-9.2 years remaining battery life to ELAN. Presenting rhythm- AP-VS. Underlying rhythm- SR 60 bpm. AP- 75 %, [employer]- 11%. 452 Atrial high rate episodes recorded, [facility] oversensing of the ventricle , longest duration 3 minutes noted. No Ventricular high rate episodes noted. Medications; ASA 81 mg. Atrial amplitude decreased to 1.5 V. Atrial auto sensitivity turned off and set to 0.5 mV. See scanned report. Office pacemaker f/u scheduled 04/10/2025. [place] remote f/u 06/19/2024. Temi Ferreira RN Yenni Reyes MD CV CARDIAC SERVICES PROCEDURES Final Result * MAMMOGRAPHY (06/09/2023) us Historical Provider HEALTH MAINTENANCE Final Result * COLONOSCOPY (2019) Scribed Colonoscopy Normal us Historical Provider HEALTH MAINTENANCE Final Result from Last 3 Months or Most Recently Relevant to Health Maintenance Insurance [facility] [id number] [facility] [id number] [facility] [id number] Advance Directives For more information, please contact: [phone] * Full Code (Latest Code Status on File) Date Activated Date Inactivated Comments 12/23/2023 5:06 AM 12/24/2023 6:27 PM * Full Code Date Activated Date Inactivated Comments 12/01/2023 1:47 PM 12/09/2023 7:30 PM * Full Code Date Activated Date Inactivated Comments 11/15/2023 10:17 AM 11/15/2023 4:10 PM Care Teams Gypsum Calciner Relationship Specialty Start Date End Date Melissa Garrison MD PCP - General Family Medicine 12/17/21 [place] [address] [place] [address] [id number] Consulting Physician General Surgery 04/06/22 [place] [address] [place] [address] Surgeon Cardiothoracic Surgery 12/09/23
== END 2024-06-11 09:38 | disposition home or self-care (01) ==
LOC: ANHIMG 09:39
PROVIDERS: PCP Hospitalist; Visit Provider Obstetrics & Gynecology
DX: Z12.31 Encounter for screening mammogram for malignant neoplasm of breast (principal)
CPT/HCPCS: 77063; 77067

== ENCOUNTER 2024-08-21 10:16 | Emergency (ER) | payer OTHER, SELFPAY ==
[2024-08-21 10:22] VITALS: BP 130/85; PULSE 84; RESP 16; TEMP 36.4; O2SAT 100
--- OUTSIDE RECORDS SUMMARY | 2024-08-21 10:24 | XMS_ITS | Data Portability ---
Author Organization [facility], [id number] [facility] Address [address] [place] [address] Assessment No assessment recorded. Plan of Treatment Reminders Order Date Submit Date Provider Last Modified By Organization Details Last Modified Time Details Appointments ANNUAL- EST 15 2025 12:00P M LAKISHA REYNAGA WHNP Not available Not available Not available Lab None recorded. Referral None recorded. Procedures None recorded. Surgeries None recorded. Imaging MAMMO, screening , digital, bilateral [address] (Mammography) , [address], [place], [address], 06/26/2024 09:22:17 Medication Orders None recorded. Patient TargetsNo targets recorded. Patient InstructionsNo instructions recorded. Reason for Referral None Reported. Results Created Date Observation Date Name Description Value Unit Range Abnormal Flag Note LastModifiedBy Organization Detail LastModifiedTime 06/12/1906/11/2024 MAMMO , scree denis, bilat eral No observ ation record ed. [facility] [address], [place], [address], 06/12/2024 10:16:29 Result Notes None recorded. Problems Name Problem SNOMED Code Status Onset Date Resolution Date Notes Provider Name and Address Organization Details Recorded Time Mitral valve prolapse 939175051 Active 2024 Ran manzanares [facility] 13:48:34 Anxiety 66076050 Active 2024 Ran Pablo null, [facility] 5 13:48:44 Cardiac pacemaker in situ 002159704 Active 2024 Ran Pablo null, [facility] 5 13:05:59 Mitral valve disorder 22117031 Active Mitral valve prolapse , Problem Code: 424.0; Problem Code Type: ICD-9; Not Available [facility] 12:04:24 Anxiety state 957051130 Active Anxiety, Problem Code: 300.00; Problem Code Type: ICD-9; Not Available [facility] 12:04:25 Problem Notes None recorded. Procedures Surgical History Date Name Laterality Status Provider Name and Address Organization Details Recorded Time 06/11 Date of Last Mammogram completed Ran Pablo [facility] 5 13:06:12 12/01 open heart surgery completed LAKISHA REYNAGA MOOKIE [address], [place], [address] , [facility] 5 13:20:45 12/01 cardiac pacemaker procedure completed VAUGHN REYNAGA MOOKIE [address], [place], [address] , [facility] 5 13:21:20 02/14 Date of Last Colonoscopy completed Ran Pablo [facility] 5 13:50:05 09/16 Date of Last Pap Smear completed Ran Pablo [facility] 5 13:49:12 Colonoscopy completed Ran Pablo [facility] 5 13:51:26 insertion of intraut erine contraceptive device completed Ran Pablo [facility] 5 13:51:32 removal of intrauter ine contraceptive device completed Ran Pablo [place] - [facility] 5 13:51:[address] [facility] 5 13:51:42 laparoscopic-assiste d vaginal hysterectomy with bilateral salpingo-oophorectomy completed [facility] 5 13:51:54 esophagogastroduodenoscopy completed [facility] 5 13:52:[address] [facility] 5 13:52:[address] [facility] 5 13:52:55 Conization of cervix completed Not Available [facility] 5 12:35:34 hysterectomy completed Not Available [facility] 5 12:35:34 introduction of Mirena coil complete d Not Available [facility] 5 12:35:34 colposcopy completed Not Available [facility] 5 12:35:34 removal of Mirena coil completed No t Available [facility] 5 12:35:34 endoscopy completed Not Available [facility] 5 12:35:34 colonoscopy completed Not Available [facility] 5 12:35:34 Imaging Results None recorded. Procedure Notes None recorded. Medical Equipment None Reported. Allergies No known drug allergies Medications Name Sig Start Date Stop Date Status Note LastModified by Organization Details LastModified Time sertraline 100 mg tablet active Not Available Not Available Not Available cyanocobala min (vit B-12) 1,000 mcg tablet TAKE 1 TABLET BY MOUTH DAILY active Not Available Not Available No t Available aspirin 81 mg tablet,rossy yed release TAKE 1 TABLET BY MOUTH EVERY DAY active Not Available Not Available No t Available pantoprazol e 40 mg tablet,rossy yed release TAKE 1 TABLET BY MOUTH DAILY 30 MINUTES BEFORE BREAKFAST OR DINNER active Not Available Not Available No t Available ibuprofen 600 mg tablet TAKE 1 TABLET BY MOUTH TWICE DAILY NEEDED 06/11 completed Not Available Not Available Not Available ferrous sulfate 325 mg (65 mg iron) tablet,rossy yed release TAKE 1 TABLET BY MOUTH EVERY DAY WITH BREAKFAST 06/11 completed Not Available Not Available Not Available Paxlovid 300 mg (150 mg x 2)-100 mg tablets in a dose pack TAKE 2 NIRMATREL VIR TABLETS AND 1 RITONAVIR TABLET TOGETHER BY MOUTH TWICE DAILY FOR 5 DAYS 06/11 completed Not Available Not Available Not Available Vitals Date Recorded Body height Body mass index (BMI) Body weight Systolic And Diastolic Provider Name and Address Organization Details Last Updated DateTime 06/11/2024 165.1 cm 20.8 kg/m2 79682.05 g 122/60 mm[Hg] Ran Pablo [facility] 06/11/2024 13:04:25 Social History Question Answer Notes LastModified by [employer] Details LastModified Time Do You Have An Advance Directive? No Information not available 06/11/2024 How Many Years Have You Consumed Alcohol? 20 Information not available 06/11/2024 What Is Your Level Of Caffeine Consumption? Moderate Information not available 06/11/2024 What Type Of Diet Are You Following? VEGETARIAN Information not available 06/11/2024 What Is Your Relationship Status? Other Note: Remarried [email or web address] Information not available 06/14/2024 Sex: Female Functional Status Question Answer Note LastModified by [employer] Details LastModified Time Do you use any illicit or recreational drugs? No Note: [email or web address] [email or web address] Information not available 06/14/2024 What is your level of alcohol consumption? Moderate Information not available 06/11/2024 Are you currently employed? 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 Family History Relationship Description Onset Age of this Age Resolved Age Notes LastModified by Organization Details LastModified Time Maternal Grandmother Malignant tumor of breast [email or web address] Not available 2024 13:04:29 Father Diabetes mellitus [email or web address] Not available 2024 13:53:28 Father Hypercholest erolemia [email or web address] Not available 2024 13:04:29 Father Heart disease [email or web address] Not available 2024 13:53:56 Father Cerebrovascu lar accident [email or web address] Not available 13:04:29 Maternal Grandfather Heart disease [email or web address] Not available 2024 13:04:29 Mother Anxiety disorder [email or web address] Not available 2024 13:04:29 Mother Diabetes mellitus [email or web address] Not available 2024 13:04:29 Sister Anxiety disorder [email or web address] Not available 2024 13:04:29 Father Mixed hypercholest erolemia and hypertriglyc eridemia Elevat ed Choles terol/ Trigly ceride s Not available 06/14/2024 12:25:18 Unspecified Relation Family history taken Family Medica l Histor y Review ed Not available 06/14/2024 12:25:18 Maternal Grandmother Malignant neoplastic disease Cancer pgf(?) ; mgm(?b reast) Not available 06/14/2024 12:25:18 Paternal Grandfather Malignant neoplastic disease Cancer pgf(?) ; mgm(?b reast) Not available 06/14/2024 12:25:18 Medical History Condition Response Cardiology-Other Y Psych- Anxiety Disorder Y Cancer- Genetic screening Cardiology- High Cholesterol Y Reviewed with no changes Y Gynecological History Statement/Question Response History of PCOS N Date of Last Mammogram 06/11/2024 Date of LMP History of Vulvar Dysplasia N History of Cervical Dysplasia N Duration of Flow (days) 0 Age at Menarche 10 Current Control Method History of Recurrent Ovarian Cysts Y Age at first intercourse 14 Post Menopausal Hormone Therapy User Nev er History of Endometriosis N Date of Last Colonoscopy 02/14/2019 Frequency of Cycle (Q days) 0 Sexually Active? Y History of Dysmenorrhea N Menses Monthly N Date of Last Pap Smear 09/16/2016 Sexual Problems? N History of Sexually Transmitted Infectio n N Date of Last Cholesterol Screening 01/14 Obstetrics History GPAL:G 3 P 3 0 0 3 Type Value Full Term 3 Living 3 Total 3 Past Encounters Encounter ID Performer Location Encounter Start Date Encounter Closed Date Diagnosis/Indication Diagnosis SNOMED-CT Code Diagnosis ICD10 Code Diagnosis Note [id number] MARIAMA CHAVIRA MD [id number] [place] [address] 06/11/2024 12:37:07 06/11/2024 13:32:54 Examination of breast 67170704 Z12.39 Female gen arpita finding 015491711 Z01.419 Health Concerns Section Related Observation LastModified by Organization Detai ls LastModified Time None Recorded Concern Status LastModified by Organization Details LastModified Time None Recorded Advance Directives Directive N: Payers Insurance Date Sequence Insurance Name Policy Number Policy Abreu Covered Member ID Abreu Member ID Guarantor Name 06/12/2024 1 [employer] [facility] [employer] [id number] Kizzy Navarro [id number] OI Kizzy Navarro Notes Date Note Type Note Provider Name and Address Organization Details Recorded Time 06/11/2024 text/html Annual Postmenopausal ([facility])Reported bypatient.Patient Relationship To Practice:established patient Current Medical History:no active medical problems Menopausal Symptoms:not present HRT:never on HRT Vaginal Bleeding:no Sexually Active:Yes: same partner STI Screen:declines Health/Prevention:Ex ercise: yes; Vitamin D: yes; Adequate Calcium Intake: yes; Breast Self Exam: no; Tobacco Use: no Mammogram:up-to-date Thyroid/Lipid Screening:up-to-date Colonoscopy:up-to-da te Patient has:Primary Care Physician: yes LAKISHA LEAL [address], [place], [address], [facility] 06/12/2024 12:56:18 OBGyn Episode No OBEpisode recorded.
--- OUTSIDE RECORDS SUMMARY | 2024-08-21 10:24 | XMS_ITS | Clinical Summary ---
Author Organization [facility] Address [facility] [place] [address] Care Team Providers Care Entry Level Account Manager Name Role Phone Manuelito Faust MD Unavailable [phone] Melissa Garrison MD Primary Care Provider [phone] Allergies No known active allergies Medications Calcium 500 MG Tab Take 1 tablet by mouth daily. 7 Active bisacodyl (DULCOLAX) 5 MG Tab EC Take 2 tablets (10 mg total) by mouth nightly as needed. at bedtime. 7 Active EPINEPHrine 0.3 MG/0.3ML injection EPINEPHrine 0.3 MG/0.3ML [id number] Active Active fluticasone propionate 50 MCG/ACT nasal [...] (10/15/2019): Added automatically from request for surgery [id number] LUQ pain 10/15/2019 Overview (10/15/2019): Added automatically from request for surgery [id number] Lipoma of back 05/22/2018 Apnea 08/04/2017 Psoriasis [...] Master's degree (e.g., MA, MS, Jian, MEd, CREDIT RISK OFFICER, DONNA) 05/22/2018 Comments No Sex and Gender Information Value Date Recorded Sex Assigned at Not on file Legal Sex Female 7:22 AM TALENT ACQUISITION PROGRAM MANAGER Gender Identity Not on file Sexual Orientation [...] A M CDT Height 165.1 cm (5' 5) 09/11/2023 6:18 AM CDT Body Mass Index [...] A,B,& C Routine 03/18/2015 3:3 1 PM TALENT ACQUISITION PROGRAM MANAGER from Last 3 Months or Most Recently Relevant to Health Maintenance Results * MAMMOGRAM GENERIC (05/08/2020) Anatomical Region Laterality Modality Other 05/08/2020 Narrative 05/08/2020 Ordered by an unspecified provider. us Documents Scanned SCANNING Final Result * HEPATITIS A,B,& C (03/18/2015 3:31 PM TALENT ACQUISITION PROGRAM MANAGER) HAV IGM NON-REACTIVE TESTING PERFORMED AT [address] [id number] NR [facility] TO EPIC CONVERSION HEPATITIS B SURFACE AG NON-REACTIVE TESTING PERFORMED AT [address] [id number] NR [employer] TO EPIC CONVERSION HEP B SURFACE AB NON-REACTIVE TESTING PERFORMED AT [place] [id number] [employer] TO EPIC CONVERSION HEP B CORE TOTAL AB NON-REACTIVE TESTING PERFORMED AT [address] [id number] NR [facility] TO EPIC CONVERSION HEPATITIS C AB NON-REACTIVE TESTING PERFORMED AT [place] [id number] NR [employer] TO EPIC CONVERSION 03/18/2015 3:31 PM TALENT ACQUISITION PROGRAM MANAGER 03/18/2015 3:31 PM TALENT ACQUISITION PROGRAM MANAGER Narrative [employer] TO EPIC CONVERSION - 03/19/2015 7:51 PM TALENT ACQUISITION PROGRAM MANAGER Result Communication: No patient communication needed at this time us Akil Norton MD LABORATORY Final Re sult [employer] TO EPIC CONVERSION from Last 3 Months or Most Recently Relevant to Health Maintenance Insurance qualifyor [facility] qualifyor [facility] Care Teams Entry Level Account Manager Relationship Specialty Start Date End Date Melissa Garrison MD [address] [place] [address] [address] [place] [address] PCP - General FAMILY PRACTICE 08/15/23 Manuelito Faust MD [facility] [address] [place], [place] [id number] [place] Custody Officer CARDIOVASCULAR DISEASE 03/23/16
--- OUTSIDE RECORDS SUMMARY | 2024-08-21 10:24 | XMS_ITS | Referral Summary ---
Author Organization [facility] Address [address] [place] [address] Phone Care Team Providers Care Photographic Artist Name Role Phone Melissa Garrison MD Primary Care Pro vider Abundio Kaur MD Unavailable [phone] Rob Bingham MD Unavailable Encounters Date Type Department Care Team Description 06/19/2024 7:45 AM CDT Ancillary Procedure [facility] Cardiology [address] [address] SSS (sick sinus syndrome) (HCC); CHB (complete heart block) (HCC) 06/11/2024 Telephone [facility] Gastroenterology at [address] [place] [phone] Zoya Mahoney MD Med Management (Pantoprazole Sodium 40MG dr Tablets) 06/06/2024 2:00 PM CDT Office Visit [facility] Gastroenterology at [address] [place] [phone] Elyssa Weeks NP Multiple duodenal ulcers (Primary Dx); Reactive gastropathy 05/29/2024 Results Follow-Up [facility] Gastroenterology at [address] [place] [phone] Carolyn Dillard MA Surgical pathology from Last 3 Months Allergies No known active allergies Medications multivitamin-Ca -iron-minerals tablet Take 1 tablet by mouth daily 7 Active cholecalciferol (VITAMIN D-3) 5,000 unit capsule Take 1 capsule (5,000 Units total) by mouth daily Active iron, carbonyl 25 mg iron tablet Take by mouth daily Active magnesium gluconate 200 mg tabletIndicatio ns:hypomagnesem ia Take 1 tablet (200 mg total) by mouth daily Active fluticasone propionate (FLONASE) 50 mcg/actuation nasal spray Administer 1 spray into each nostril daily Active melatonin 5 mg tablet nightly as needed Active aspirin 81 mg enteric coated tablet Take 1 tablet (81 mg total) by mouth daily 30 tablet 1 4 Active polyethylene glycol (MIRALAX) 17 gram/dose bulk powderIndicatio ns:constipation Take 17 g by mouth daily 4 Active docusate sodium (STOOL SOFTENER ORAL) Take by mouth Active cyanocobalamin (Vitamin B-12) 1,000 mcg tabletIndicatio ns:Paresthesia TAKE 1 TABLET BY MOUTH DAILY 30 tablet 11 5 Active sertraline (ZOLOFT) 100 mg tabletIndicatio ns:GONZALO (generalized anxiety disorder) Take 1 tablet (100 mg total) by mouth daily 90 tablet [address] (PROTONIX) 40 mg EC tabletIndicatio ns:Multiple duodenal ulcers Take 1 tablet (40 mg total) by mouth daily Please take 30 minutes before breakfast or dinner 90 tablet 3 5 06/07/19 26 Active Active Problems Problem Noted Date Diagnosed Date Reactive gastropathy 06/10/2024 Assessment & Plan (06/10/2024 7:28 PM CDT): Present on EGD 12/2023 and 02/2024. Negative H pylori Has been taking pantoprazole 40 mg daily On aspirin 81 mg daily Likely from chronic ASA use, alcohol use possibly contributing See above plan Gastritis without bleeding 03/08/2024 Assessment & Plan (04/09/2024 9:12 AM CONSERVATION COORDINATOR): Persistent gastritis on repeat EGD, but duodenal [...] 01/02/2024 Assessment & Plan (04/09/2024 9:09 AM CONSERVATION COORDINATOR): Following with cardiology, reviewed last note Atrial tachycardia 01/02/2024 Assessment & Plan (04/09/2024 9:10 AM CONSERVATION COORDINATOR): Following with cardiology, reviewed last note, didn't add beta-tory 2/2 low blood pressure Cardiac pacemaker in situ 12/08/2023 Overview (12/12/2023): De La O Assurity MRI 2272 Dual Pacemaker. Hx: SSS, CHB. DOI: 12/07/2023 Munfakh. SmithEric. [facility]. Assessment & Plan (04/09/2024 9:10 AM CONSERVATION COORDINATOR): Following with cardiology, reviewed last note Assessment & Plan (12/27/2023 4:46 PM CONSERVATION COORDINATOR): For complete heartblock Following with cardiology Sick [...] management Assessment & Plan (04/04/2023 9:00 AM CONSERVATION COORDINATOR): Following with cardiology, reviewed note Upcoming ECHO Family history of early CAD 03/28/2023 Assessment & Plan (04/04/2023 8:59 AM CONSERVATION COORDINATOR): Following with cardiology, reviewed note Annual physical exam 12/17/2021 Assessment & Plan (04/09/2024 9:10 AM CONSERVATION COORDINATOR): Reviewed PMH & PHQ reviewed Reviewed medications and supplements HCM: orders placed as needed Assessment & Plan (04/04/2023 8:52 AM CONSERVATION COORDINATOR): Reviewed PMH & PHQ reviewed Reviewed medications and supplements HCM: [...] 12/17/2021 Assessment & Plan (04/09/2024 9:10 AM CONSERVATION COORDINATOR): controlled Continue zoloft Assessment & Plan (09/13/2023 6:15 AM CDT): Chronic, uncontrolled on medication Increase dose of sertraline from 50 mg to 100 mg daily Encouraged follow-up with PCP Assessment & Plan (04/04/2023 8:57 AM CONSERVATION COORDINATOR): Uncontrolled Just restarted zoloft Assessment & Plan (12/17/2021 11:01 AM CDT): Stable Continue zoloft Resolved Problems Problem Noted Date Diagnosed Date Resolved Date Acute GI bleeding 12/23/2023 04/09/2024 Assessment & Plan (12/27/2023 4:18 PM CONSERVATION COORDINATOR): Reviewed discharge summary Continue protonix and iron supplement Encouraged to contact GI to schedule repeat EGD in 2m Acute mitral regurgitation 12/01/2023 1 03/03/2023 Mitral valve insufficiency 10/06/2023 1 03/03/2023 Assessment & Plan (12/27/2023 4:46 PM CONSERVATION COORDINATOR): S/p repair On potassium wasting diuretic therapy 09/13/2023 04/09/2024 Assessment & Plan (09/13/2023 6:14 AM CDT): Continued on furosemide, will monitor electrolytes and renal function Acute pulmonary edema 09/13/20232024 Assessment & Plan (09/13/2023 6:17 AM CDT): New diagnosis Reviewed ER notes and test results from 09/11/2023 Continued on furosemide Ordered labs Encouraged to follow-up with charge rn Referral made to Cardiothoracic surgeon Advised ER evaluation if new or worsening symptoms Immunizations Immunization Administration Dates Next Due Influenza, Unspecified 11/23/2023,2022,11/16/2021,11/12/2019, 9,11/15/2016 Tdap 01/04/2020,02/21/2016 ZOSTER Recombinant 03/04/2020,01/04/2020 Social History Tobacco Use Types Packs/Day Years Used Date Smoking Tobacco: Never Smokeless Tobacco: Never Tobacco Cessation:Counseling Given: Not Answered [facility] Utilities Answer Date Recorded In the past 12 months has [employer], gas, oil, or water company threatened to [...] often do you attend chur ch or spiritism services? Never 12/05/2023 Do you belong to any clubs o r organizations such as caodaism groups, unions, fraternal or athletic groups, or [...] any time in the past 12 m [facility], were you homeless or living in a mcc (including now)? No 12/05/2023 Personal Safety Answer [...] 37.3 C (99.1 F) 04/09/2024 9:00 AM CONSERVATION COORDINATOR Respiratory Rate 14 04/10/2024 10:11 AM CONSERVATION COORDINATOR Oxygen Saturation 100% 06/06/2024 1:23 PM CDT Inhaled Oxygen Concentration - - Weight 58.2 kg (128 lb 6.4 oz) 06/06/2024 1:23 P M CDT Height 165.1 cm (5' 5) 06/06/2024 1:23 PM CDT Body Mass Index 21.37 06/06/2024 1:23 PM CDT Plan of Treatment Not on file Medical Devices Implanted Type Area Warning Coordination Meteorologist Device Identifier Shelf Expiration Date Model / Serial / Lot [employer] Tendril Sts 6fr 58cm Is-1 Connector Active Fixation Bipolar Soft 2087tc/58 - [id number] - [id number] Implanted:Qty: 1 on 12/07/2023 by Rob Bingham MD at [facility] Lead Right: Ventricle [employer] [id number] 09/13/2026 2088TC/5 8 / [id number] / [employer] Tendril Sts 6fr 52cm Is-1 Connector Active Fixation Bipolar Soft 2087tc/52 - [id number] - [id number] Implanted:Qty: 1 on 12/07/2023 by Rob Bingham MD at [facility] Lead Right: Heart [employer] [id number] 09/13/20268TC/5 2 / [id number] / Description:RA LEAD [employer] Assurity Mri [id number] 2 Chamber Is-1 Connector Thk6mm Pacemaker [id number] - [id number] - [id number] Implanted:Qty: 1 on 12/07/2023 by Rob Bingham MD at [facility] Pacemaker Right: Chest [employer] [id number] 04/13/2025 [id number] / [id number] / [employer] Device Closure Vascade Od5 Fr Femoral Artery [id number] - [id number] Implanted:Qty: 1 on 11/15/2023 by Maranda Reyes MD at [facility] [employer] 06/22/2025 [id number] X-[id number] / / [id number] Low Lifesciences Misty-Edw ards Physio Ii 32mm Abreu Sew Mitral Ring [id number] - [id number] - [id number] Implanted:Qty: 1 on 12/01/2023 by Rob Bingham MD at [facility] N/A: Heart Low [employer] [id number] 01/19/2028 [id number] / [id number] / Procedures Procedure Name Priority Date/Time Associated Diagnosis Comments MAMMOGRAPHY Routine 06/11/2024 HEPATITIS C ANTIBODY Routine 04/10/2024 9:17 AM CONSERVATION COORDINATOR Encounter for screening for other viral diseases COLONOSCOPY Routine 2019 from Last 3 Months or Most Recently Relevant to Health Maintenance Results * MAMMOGRAPHY (06/11/2024) us Historical Provider HEALTH MAINTENANCE Final Result * Hepatitis C antibody Blood (04/10/2024 9:17 AM CONSERVATION COORDINATOR) Hep C Ab Nonreactive Nonreactive Comment: Interpretive [...] revised on 2019. Blood 04/10/2024 9:17 AM CONSERVATION COORDINATOR 04/10/2024 9:34 AM CONSERVATION COORDINATOR Melissa Garrison MD LAB MICROBIOLOGY - GENERAL ORDERABLES Final Result [address]ITA [address] [address] Department [place] [address] * COLONOSCOPY (2019) Scribed Colonoscopy Normal Historical Provider HEALTH MAINTENANCE Final Result from Last 3 Months or Most Recently Relevant to Health Maintenance Insurance [facility] [id number] [facility] [id number] [facility] [id number] Advance Directives For more information, please contact: [phone] * Full Code (Latest Code Status on File) Date Activated Date Inactivated Comments 12/23/2023 5:06 AM 12/24/2023 6:27 PM * Full Code Date Activated Date Inactivated Comments 12/01/2023 1:47 PM 12/09/2023 7:30 PM * Full Code Date Activated Date Inactivated Comments 11/15/2023 10:17 AM 11/15/2023 4:10 PM Care Teams Photographic Artist Relationship Specialty Start Date End Date Melissa Garrison MD PCP - General Family Medicine 12/17/21 Abundio Kaur MD [address] [place] [address] [id number] Consulting Physician General Surgery 04/06/22 Rob Bingham MD [address] [place] [address] [phone] Surgeon Cardiothoracic Surgery 12/09/23
--- OUTSIDE RECORDS SUMMARY | 2024-08-21 10:24 | XMS_ITS | Patient Health Record ---
Author Organization 1 OF Wilder manduj[facility] Address [address] [place] [address] Care Team Providers Care Livestock Dealer Name Role Phone Bladimir CADET, Dr. Torres Primary Care Provider U Teto Montez Unavailable [phone] Mi Nolan Unavailable [phone] Allergies No Known Allergies Reason For Referral [...] Date Coverage End Date [employer] [address] [place], [place] [id number] Kizzy Navarro Self - patient is the insured Medical (General) History Medical History History ICD Code migraines, high cholesterol
--- OUTSIDE RECORDS SUMMARY | 2024-08-21 10:24 | XMS_ITS | Encounter Summary ---
Author Organization [facility] Address [facility] [place] [address] Care Team Providers Care Marine Steward Name Role Phone Akil Norton MD Primary Care Provider U Manuelito Gonzales MD Unavailable [phone] None, Provider Primary Care Provider Unavaila Melissa Black MD Primary Care Provider [phone] Encounter Details Date Type Department Care Team (Late st Contact Info) Description 10/19/2019 Prep for Procedure [facility] [address] [place], [place] [id number] Dipesh Chen MD [address] [place] [address] [phone] Social History Tobacco Use Types Packs/Day Years [...] Master's degree (e.g., MA, MS, Jian, MEd, COMMERCIAL CARPET INSTALLER, DONNA) 05/22/2018 Comments No Sex and Gender Information Value Date Recorded Sex Assigned at Not on file 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 Due to the current public health emergency, [facility] is receiving a high volume of samples [...] about COVID-19 can be found at the [facility] website: www.[place]/Covid19. Test performed at [email or web address] [place] [address] [address] [facility] [place] [address] Director: TOMASA VILLA DO,MPH NASOPHARYNGEAL SWAB / Unknown 10/21/2019 7:22 AM CDT us Dipesh Chen MD MICROBIOLOGY - GENERAL ORDERABLE S Final Result [email or web address] [address] [address] [place], [place] [id number] [place] [address] documented in this encounter Visit Diagnoses Diagnosis Preop testing- Primary Preoperative examination, unspecified documented in this encounter Additional Health Concerns Infection Onset Date Last Indicated Resolved Time COVID-19 Rule Out 10/21/2019 10/21/2019 10/22/2019 6:35 PM CDT documented as of this encounter Care Teams Marine Steward Relationship Specialty Start Date End Date Akil Norton MD PCP - General INTERNAL MEDICINE 03/17/16 04/07/23 None, ProviderMD PCP - General UNKNOWN PHYSICIAN SPECIALTY 04/08/23 08/14/23 Melissa Garrison MD [address] [facility] [address] [place] [address] PCP - General FAMILY PRACTICE 08/15/23 Manuelito Faust MD Three [facility]. [address] [place] [address] [place] Insurance Claims Clerk CARDIOVASCULAR DISEASE 03/23/16 documented as of this encounter
--- OUTSIDE RECORDS SUMMARY | 2024-08-21 10:24 | XMS_ITS | Encounter Summary ---
Author Organization [facility] Address [facility] [place] [address] Care Team Providers Care Rn Social Work Name Role Phone Akil Norton MD Primary Care Provider U Manuelito Gonzales MD Unavailable [phone] None, Provider Primary Care Provider Unavaila Melissa Black MD Primary Care Provider [phone] Encounter Details Date Type Department Care Team (Late st Contact Info) Description 04/27/2016 Abstract [facility] AT [address] [address] Evans Syed MA Social History Tobacco Use Types Packs/Day Years Used Date Smoking Tobacco: Never Cigarettes Smokeless Tobacco: Never Alcohol Use Standard Drinks/Week Comments Yes 5 (1 standard drink = 0.6 oz pur e alcohol) 2-3 drinks per week Comments Unknown Sex and Gender Information Value Date Recorded Sex Assigned at Not on file 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 [address] [address] Isaura Bolt Sorter CARDIOVASCULAR DISEASE 03/23/16 documented as of this encounter
--- OUTSIDE RECORDS SUMMARY | 2024-08-21 10:24 | XMS_ITS | Clinical Summary ---
Author Organization [facility] Address [address] [place] [address] Phone Care Team Providers Care Bond Analyst Name Role Phone Melissa Garrison MD Primary Care Pro vider Abundio Kaur MD Unavailable [phone] Rob Bingham MD Unavailable [phone] Allergies No known active allergies Medications multivitamin-Ca [...] 03/08/2024 Assessment & Plan (04/09/2024 9:12 AM ONCOLOGY RESEARCH RN): Persistent gastritis on repeat EGD, but duodenal [...] 01/02/2024 Assessment & Plan (04/09/2024 9:09 AM ONCOLOGY RESEARCH RN): Following with cardiology, reviewed last note Atrial tachycardia 01/02/2024 Assessment & Plan (04/09/2024 9:10 AM ONCOLOGY RESEARCH RN): Following with cardiology, reviewed last note, didn't add beta-tory 2/2 low blood pressure Cardiac pacemaker in situ 12/08/2023 Overview (12/12/2023): De La O Assurity MRI 2272 Dual Pacemaker. Hx: SSS, CHB. DOI: 12/07/2023 Munfakh. Ortiz. [facility]. Assessment & Plan (04/09/2024 9:10 AM ONCOLOGY RESEARCH RN): Following with cardiology, reviewed last note Assessment & Plan (12/27/2023 4:46 PM ONCOLOGY RESEARCH RN): For complete heartblock Following with cardiology Sick [...] management Assessment & Plan (04/04/2023 9:00 AM ONCOLOGY RESEARCH RN): Following with cardiology, reviewed note Upcoming ECHO Family history of early CAD 03/28/2023 Assessment & Plan (04/04/2023 8:59 AM ONCOLOGY RESEARCH RN): Following with cardiology, reviewed note Annual physical exam 12/17/2021 Assessment & Plan (04/09/2024 9:10 AM ONCOLOGY RESEARCH RN): Reviewed PMH & PHQ reviewed Reviewed medications and supplements HCM: orders placed as needed Assessment & Plan (04/04/2023 8:52 AM ONCOLOGY RESEARCH RN): Reviewed PMH & FH PHQ reviewed Reviewed [...] 12/17/2021 Assessment & Plan (04/09/2024 9:10 AM ONCOLOGY RESEARCH RN): controlled Continue zoloft Assessment & Plan (09/13/2023 6:15 AM CDT): Chronic, uncontrolled on medication Increase dose of sertraline from 50 mg to 100 mg daily Encouraged follow-up with PCP Assessment & Plan (04/04/2023 8:57 AM ONCOLOGY RESEARCH RN): Uncontrolled Just restarted zoloft Assessment & Plan (12/17/2021 11:01 AM CDT): Stable Continue zoloft Resolved Problems Problem Noted Date Diagnosed Date Resolved Date Acute GI bleeding 12/23/2023 04/09/2024 Assessment & Plan (12/27/2023 4:18 PM ONCOLOGY RESEARCH RN): Reviewed discharge summary Continue protonix and iron supplement Encouraged to contact GI to schedule repeat EGD in 2m Acute mitral regurgitation 12/01/2023 1 03/03/2023 Mitral valve insufficiency 10/06/2023 1 03/03/2023 Assessment & Plan (12/27/2023 4:46 PM ONCOLOGY RESEARCH RN): S/p repair On potassium wasting diuretic therapy 09/13/2023 04/09/2024 Assessment & Plan (09/13/2023 6:14 AM CDT): Continued on furosemide, will monitor electrolytes and renal function Acute pulmonary edema 09/13/20232024 Assessment & Plan (09/13/2023 6:17 AM CDT): New diagnosis Reviewed ER notes and test results from 09/11/2023 Continued on furosemide Ordered labs Encouraged to follow-up with carbon printer Referral made to Cardiothoracic surgeon Advised ER evaluation if new or worsening symptoms Encounters Date Type Department Care Team Description 06/19/2024 7:45 AM CDT Ancillary Procedure [facility] Cardiology [address] [address] SSS (sick sinus syndrome) (HCC); CHB (complete heart block) (HCC) 06/11/2024 Telephone [facility] Gastroenterology at [address] [phone] Zoya Mahoney MD Med Management (Pantoprazole Sodium 40MG dr Tablets) 06/06/2024 2:00 PM CDT Office Visit [facility] Gastroenterology at [address] [phone] Elyssa Weeks NP Multiple duodenal ulcers (Primary Dx); Reactive gastropathy 05/29/2024 Results Follow-Up [facility] Gastroenterology at [address] [address] Carolyn Dillard MA Surgical pathology from Last 3 Months Immunizations Immunization Administration [...] Tobacco: Never Tobacco Cessation:Counseling Given: Not Answered [facility] Utilities Answer Date [...] often do you attend chur ch or evangelical services? Never 12/05/2023 Do you belong to any clubs o r organizations such as adventism groups, unions, fraternal or athletic groups, or [...] any time in the past 12 m [facility], were you homeless or [...] 37.3 C (99.1 F) 04/09/2024 9:00 AM ONCOLOGY RESEARCH RN Respiratory Rate 14 04/10/2024 10:11 AM ONCOLOGY RESEARCH RN Oxygen Saturation 100% 06/06/2024 1:23 PM CDT Inhaled Oxygen Concentration - - Weight 58.2 kg (128 lb 6.4 oz) 06/06/2024 1:23 P M CDT Height 165.1 cm (5' 5) 06/06/2024 1:23 PM CDT Body Mass Index 21.37 06/06/2024 1:23 PM CDT Plan of Treatment Health Maintenance Due Date Last Done Comments Depression Screening 04/09/2025 04/09/2024, 04/04/2023, 04/04/2023, Additional history exists Regular Well Visit/Exam 18-64 04/09/2025 04/09/2024, 04/04/2023, 12/17/2021 Breast Cancer Screening-Mammogram 06/11/2025 06/11/2024, 06/09/2023 Colon Cancer Screening-Colonoscopy 10/23/2029 2019 DTaP/Tdap/Td Vaccine [...] this topic Medical Devices Implanted Type Area Planner/Scheduler Device Identifier Shelf Expiration Date Model / Serial / Lot [employer] Tendril Sts 6fr 58cm Is-1 Connector Active Fixation Bipolar Soft 2087tc/58 - [id number] - [id number] Implanted:Qty: 1 on 12/07/2023 by Rob Bingham MD at [facility] Lead Right: Ventricle [employer] [id number] 09/13/2026 2088TC/5 8 / [id number] / [employer] Tendril Sts 6fr 52cm Is-1 Connector Active Fixation Bipolar Soft 2087tc/52 - [id number] - [id number] Implanted:Qty: 1 on 12/07/2023 by Rob Bingham MD at [facility] Lead Right: Heart [employer] [id number] 09/13/2026 2088TC/5 2 / [id number] / Description:RA LEAD [employer] Assurity Mri 01g39te 2 Chamber Is-1 Connector Thk6mm Pacemaker [id number] - [id number] - [id number] Implanted:Qty: 1 on 12/07/2023 by Rob Bingham MD at [facility] Pacemaker Right: Chest [employer] [id number] 04/13/2025 [id number] / [id number] / [employer] Device Closure Vascade Od5 Fr Femoral Artery [id number] - [id number] Implanted:Qty: 1 on 11/15/2023 by Maranda Reyes MD at [facility] [employer] 06/22/2025 700-500D X-05U / / [id number] Low [employer] Misty-Edw ards Physio Ii 32mm Abreu Sew Mitral Ring [id number] - [id number] - [id number] Implanted:Qty: 1 on 12/01/2023 by Rob Bingham MD at [facility] N/A: Heart [employer] [id number] 01/19/2028 [id number] / [id number] / Procedures Procedure Name Priority Date/Time Associated Diagnosis Comments MAMMOGRAPHY Routine 06/11/2024 HEPATITIS C ANTIBODY Routine 04/10/2024 9:17 AM ONCOLOGY RESEARCH RN Encounter for screening for other viral diseases COLONOSCOPY Routine 2019 from Last 3 Months or Most Recently Relevant to Health Maintenance Results * MAMMOGRAPHY (06/11/2024) Historical Provider HEALTH MAINTENANCE Final Result * Hepatitis C antibody Blood (04/10/2024 9:17 AM ONCOLOGY RESEARCH RN) Hep C Ab Nonreactive Nonreactive Comment: Interpretive [...] revised on 2019. Blood 04/10/2024 9:17 AM ONCOLOGY RESEARCH RN 04/10/2024 9:34 AM ONCOLOGY RESEARCH RN Melissa Garrison MD LAB MICROBIOLOGY - GENERAL ORDERABLES Final Result [facility]ITA [address] [address] [address] Department [place] [address] * COLONOSCOPY (2019) Scribed Colonoscopy Normal Historical Provider HEALTH MAINTENANCE Final Result from Last 3 Months or Most Recently Relevant to Health Maintenance Insurance [facility] [id number] [facility] [id number] [facility] [id number] Advance Directives For more information, please contact: [phone] * Full Code (Latest Code Status on File) Date Activated Date Inactivated Comments 12/23/2023 5:06 AM 12/24/2023 6:27 PM * Full Code Date Activated Date Inactivated Comments 12/01/2023 1:47 PM 12/09/2023 7:30 PM * Full Code Date Activated Date Inactivated Comments 11/15/2023 10:17 AM 11/15/2023 4:10 PM Care Teams Bond Analyst Relationship Specialty Start Date End Date Melissa Garrison MD PCP - General Family Medicine 12/17/21 Abundio Kaur MD [address] [place] [address] [phone] Consulting Physician General Surgery 04/06/22 Rob Bingham MD [address] [place] [address] [phone] Surgeon Cardiothoracic Surgery 12/09/23
--- OUTSIDE RECORDS SUMMARY | 2024-08-21 10:24 | XMS_ITS ---
Author Organization 1 [facility]CK mandujano DPM [facility] Address [address] [facility] [address] [place] [address] Care Team Providers Care Aircraft Quality Control Inspector Name Role Phone Bladimir CADET, Dr. Torres Primary Care Provider U Teto Montez Unavailable [phone] Mi Nolan Unavailable [phone] REASON FOR VISIT f/u left toe wound Encounters Encounter Location Date Provider Diagnosis 3 COL Celeste Coronel DPM [address] [place] [address] 03/27/2024 Mi Nolan Plan Of Treatment No Information Progress Notes * Kizzy PETERS LDOB: 0 (53 yo F)Acc No.[id number]:03/27/2024 Progress Notes Patient: Kizzy VAZQUEZ Provider: Michelle Nolan DPM :1970 A ge:53 Y S ex:Female Date:03/27/2024 Address:[address] [id number] Pcp:Dr. Melissa Garrison MD Subjective: * Chief Complaints: * 1 . F/u left toe wound. * Medical History: Objective: * Vitals: Assessment: Plan: * Treatment: * Images: * Electronic signature of Luli Nolan DPM on 08/21/2024 at 10:24 AM CDT Sign off status: Pending * Provider: Michelle Nolan DPM Date: 0 03/27/2024 Generated for Minh velázquez/Yolanda/eTransmitting on: 0 08/21/2024 10:24 AM CDT
--- NOTE | 2024-08-21 10:40 | ED_ITS ---
HPI - General Adult General Chief complaint: Skin/Abscess/Foreign Body Stated complaint: Skin Rash History of Present Illness HPI narrative: Kizzy Navarro Is a 53-year-old female who presents with complaints of having a a rash to her arms legs back neck that started yesterday. She states that it is similar to previous poison sandra rashes that she has had before. She has been working outdoors, but she does not remember any particular poison sandra plant that she has been in contact with. She states that the itchy rash started yesterday and last night she started to feel soreness in her throat aswell. Denies SOB or swelling Related Data Home Medications ?Medication ?Instructions ?Recorded ?Confirmed ?Last Taken ?Type aspirin 81 mg tablet,delayed mg 08/21/24 Unknown History release pantoprazole 40 mg tablet,delayed mg PO 08/21/24 Unknown History release sertraline 100 mg tablet mg 08/21/24 Unknown History Allergies Allergy/AdvReac Type Severity Reaction Status Date / Time No Known Allergies Allergy Verified 08/21/24 10:31 Review of Systems Review of Systems: All systems reviewed & are unremarkable except as noted in HPI and below PMFSH Past Medical History Medical History Mitral valve prolapse Diverticulitis Surgical History Surgical History History of permanent cardiac pacemaker placement Mitral valve replaced Social History Social History Smoking status: Never smoker Exam Narrative: GENERAL: Well-appearing, well-nourished, and in no acute distress. HEAD: Normocephalic, atraumatic. EYES: PERRLA and EOMI. ENT: Nares clear, no rhinorrhea or epistaxis. Mucous membranes moist. Albin pharynx without tonsillar hypertrophy exudate, Oral pharynx + erythema NECK: Supple. No adenopathy or masses. CHEST: Clear to auscultation. No respiratory distress. No wheezes rales or rhonchi HEART: Regular rate and rhythm. No murmur heard. Normal peripheral pulses. EXTREMITIES: Normal range of motion. No edema. SKIN: multiple small red raised papules to legs, scattered and upper arms and neck and upper back mid back NEURO: No focal deficits. Alert and oriented x3. PSYCH: Normal mood and affect. Course Course Level of Care: Express Care Visit Vital Signs Vital signs: Vital Signs Temperature 36.4 C L 08/21/24 10:22 Pulse Rate 84 08/21/24 10:22 Respiratory Rate 16 08/21/24 10:22 Blood Pressure 130/85 08/21/24 10:22 Pulse Oximetry 100 08/21/24 10:22 Oxygen Delivery Room Air 08/21/24 10:22 Temperature 36.4 C L 08/21/24 10:22 Pulse Rate 84 08/21/24 10:22 Respiratory Rate 16 08/21/24 10:22 Blood Pressure 130/85 08/21/24 10:22 Pulse Oximetry 100 08/21/24 10:22 Oxygen Delivery Room Air 08/21/24 10:22 Medical Decision Making MDM Narrative Medical decision making narrative: 53-year-old female who presents with reports of feeling like she is breaking out from being exposed to poison sandra she has a rash that is itching to her arms legs back upper neck area small area to her abdomen. Based on exam concern for some type of contact dermatitis could be related to bug bites versus poison sandra she is also having a sore throat she does have some erythema to her throat does not appear to be hives or allergic reaction symptoms have been going on since yesterday however she will be treated with a steroid injection here steroid pack for home cetirizine daily Benadryl at bedtime and triamcinolone topical cream to help with her irritation. Patient is giving strict return precautions if she develops any throat swelling, difficulty breathing, difficulty swallowing she is to proceed to the emergency room immediately. She verbalizes understanding this and denies anything further at this time. Medical Records Medical records reviewed: Yes I reviewed the external patient's medical records. Vital Signs Vital Signs: Vital Signs Temperature 36.4 C L 08/21/24 10:22 Pulse Rate 84 08/21/24 10:22 Respiratory Rate 16 08/21/24 10:22 Blood Pressure 130/85 08/21/24 10:22 Pulse Oximetry 100 08/21/24 10:22 Oxygen Delivery Room Air 08/21/24 10:22 Temperature 36.4 C L 08/21/24 10:22 Pulse Rate 84 08/21/24 10:22 Respiratory Rate 16 08/21/24 10:22 Blood Pressure 130/85 08/21/24 10:22 Pulse Oximetry 100 08/21/24 10:22 Oxygen Delivery Room Air 08/21/24 10:22 vitals reviewed by me Discharge Plan Discharge Clinical Impression: Contact dermatitis Qualifiers: Contact dermatitis type: unspecified Contact dermatitis trigger: unspecified trigger Qualified Code(s): L25.9 - Unspecified contact dermatitis, unspecified cause Patient Disposition: Home Condition: Stable Instructions: Antibiotic Form Additional Instructions: You received a steroid injection today, start the steroid taper pack tomorrow 08/22 Continue to take the Cetirizine once daily and Benadryl at bedtime for severe itching Start applying the triamcinolone topical steroid to the affected areas twice daily for 1-2 weeks BE cautions with your symptoms, you should only be improving - if you develop throat swelling, difficulty swallowing or breathing, shortness of breath then go to the ER. Follow up with your PCP in 1 week to ensure you are imrpoving Patient Language: Belizean Prescriptions: New cetirizine 10 mg tablet 10 mg PO DAILY PRN (Reason: allergy symptoms) Qty: 30 0RF triamcinolone acetonide 0.1 % cream 1 applic topical BID Qty: 80 1RF prednisone 5 mg tablets,dose pack See Rx Instructions .ROUTE .COMPLEX Qty: 21 0RF Rx Instructions: orally per package directions No Action sertraline 100 mg tablet aspirin 81 mg tablet,delayed release (DR/EC) pantoprazole 40 mg tablet,delayed release (DR/EC) PO Follow-up/Referrals: Bladimir,Melissa Lyon MD [Primary Care Provider] - 1 Week Time of Disposition: 10:42
[2024-08-21] MEDS: dexAMETHasone SOD PHOS INJ 10 MG/ML 1 ML VIAL IM (10:42)
== END 2024-08-21 11:11 | disposition home or self-care (01) ==
PROVIDERS: Emergency Provider Nurse Practitioner Family; PCP Hospitalist
DX: L25.9 Unspecified contact dermatitis, unspecified cause (principal); Z95.2 Presence of prosthetic heart valve; Z95.0 Presence of cardiac pacemaker
CPT/HCPCS: 96372; 99213; G0463; J1100